=== PATIENT | female | born 1970 | race African-American/Black ===

== ENCOUNTER 2019-10-22 23:19 | Inpatient (IN) | payer MEDICARE, MEDICAID ==
[~2019-10-22] VITALS: Ht 175.3 cm; Wt 71.2 kg
[2019-10-22 23:30] VITALS: BP 154/86
[2019-10-23] VITALS (7 sets, daily range): BP systolic 103–135; BP diastolic 73–90
[2019-10-23] MEDS ORDERED: Haloperidol 5mg/ml Inj IM ONE (00:30)
[2019-10-23 00:44] LABS: EOSINOPHILS % (AUTO) 0.8 % (0.0-3.0); HEMATOCRIT 37.4 % (37.0-47.0); HEMOGLOBIN 12.2 G/DL (12.0-16.0); LYMPHOCYTES % (AUTO) 35.6 % (20.0-45.0); MEAN CORPUSCULAR VOLUME 81 FL (80-99); MONOCYTES % (AUTO) 6.8 % (1.0-10.0); NEUTROPHILS % (AUTO) 55.8 % (45.0-75.0); PLATELET COUNT 146 K/UL (150-450); RED BLOOD COUNT 4.62 M/UL (4.20-5.40); RED CELL DISTRIBUTION WIDTH 14.1 % (11.6-14.8); WHITE BLOOD COUNT 12.8 K/UL (4.8-10.8)
[2019-10-23 00:51] LABS: ANION GAP 14 mmol/L (5-15); BLOOD UREA NITROGEN 10 mg/dL (7-18); CALCIUM 9.7 MG/DL (8.5-10.1); CARBON DIOXIDE 24 MMOL/L (21-32); CHLORIDE 105 MMOL/L (98-107); CREATININE 0.8 MG/DL (0.55-1.30); POTASSIUM 3.7 MMOL/L (3.5-5.1); SODIUM 142 MMOL/L (136-145)
[2019-10-23 00:57] LABS: ALANINE AMINOTRANSFERASE 19 U/L (12-78); ALBUMIN 3.8 G/DL (3.4-5.0); ALKALINE PHOSPHATASE 40 U/L (46-116); ASPARTATE AMINO TRANSFERASE 16 U/L (15-37); BILIRUBIN,TOTAL 0.4 MG/DL (0.2-1.0)
[2019-10-23 01:16] LABS: BILIRUBIN, URINE NEGATIVE (NEGATIVE); GLUCOSE, URINE (UA) NEGATIVE (NEGATIVE); KETONES,URINE NEGATIVE (NEGATIVE); LEUKOCYTE ESTERASE ,URINE 2+ (NEGATIVE); NITRITE,URINE NEGATIVE (NEGATIVE); PH,URINE 5 (4.5-8.0); PROTEIN,URINE 1+ (NEGATIVE); UROBILINOGEN,URINE 1 MG/DL (0.0-1.0)
[2019-10-23 01:18] LABS: COLOR,URINE YELLOW
[2019-10-23 01:22] LABS: APPEARANCE,URINE SLIGHTLY CLOUDY
[2019-10-23] MEDS ORDERED: cefTRIAXone 1 GM in NS 55 ML IVPB ONE (01:45)
--- NOTE | 2019-10-23 02:01 | Emergency Room Report ---
History of Present Illness General Chief Complaint: Generalized Weakness Source: Medical Record, EMS Present Illness HPI Is a 48-year-old female with a history of schizophrenia. She [place]. She presents with chief complaint of altered mental status. For the last few days she is not taking her medication. Not eating or drinking. Very catatonic per EMS. Unable get any history because she is not verbalizing her complaints. At baseline she is conversive. Allergies: Coded Allergies: No Known Allergies (Unverified , 10/22/19) Patient History Past Medical History: see triage record, old chart reviewed, psych hx Past Surgical History: other Pertinent Family History: none Social History: Denies: smoking Now: No Immunizations: other Reviewed Nursing Documentation: PMH: Agreed; PSxH: Agreed Review of Systems Constitutional: Reports: weakness All Other Systems: limited - Secondary to her condition Physical Exam Vital Signs Date Time Temp Pulse Resp B/P (MAP) Pulse Ox O2 Delivery O2 Flow Rate FiO2 10/22/19 23:29 97.9 119 18 154/86 (108) 97 Room Air Vitals with tachycardia and high blood pressure Sp02 EP Interpretation: reviewed, normal General Appearance: no apparent distress, alert, cachetic, thin Head: normocephalic, atraumatic Eyes: bilateral eye PERRL, bilateral eye EOMI ENT: hearing grossly normal, normal pharynx Neck: full range of motion, supple, no meningismus Respiratory: chest non-tender, lungs clear, normal breath sounds Cardiovascular #1: regular rate, rhythm, no murmur Gastrointestinal: normal bowel sounds, non tender, no mass, no organomegaly, no bruit, non-distended Musculoskeletal: back normal, normal range of motion, gait/station normal Neurologic: grossly normal Psychiatric: other - Patient is catatonic. Not moving much. Medical Decision Making Diagnostic Impression: Primary Impression: Failure to thrive in adult Additional Impressions: UTI (urinary tract infection) Qualified Codes: N30.00 - Acute cystitis without hematuria Schizophrenic catatonia Dehydration ER Course Patient presents with failure to thrive and schizophrenic catatonia. May be secondary to nothing her medication or infection. She is dehydrated with tachycardia. I gave her IV fluids here and heart rate down to the 90s. She also received Haldol. She appear to be better. Will admit for IV fluids and further work-up. She does have a urinary tract infection and a dose of Rocephin given here. I contacted Dr. Kendall for admission,. Rhythm Strip Diag. Results EP Interpretation: yes Rate: 94 Rhythm: NSR, no PVC's, no ectopy Last Vital Signs Date Time Temp Pulse Resp B/P (MAP) Pulse Ox O2 Delivery O2 Flow Rate FiO2 10/22/19 23:29 97.9 119 18 154/86 (108) 97 Room Air Status: improved Disposition: ADMITTED INPATIENT Condition: Serious Referrals: Carl Kendall DO (PCP) Turner Tarn MD Oct 23, 2019 02:01
[2019-10-23] MEDS ORDERED: COLACE100 MG ORAL (02:50)
[2019-10-23] MEDS ORDERED: ENSURE ACTIVE296 ML PO (02:50)
[2019-10-23] MEDS ORDERED: ACIDOPHILUS1 EAC7 PO (02:50)
[2019-10-23] MEDS ORDERED: DIFLUCAN100 MG ORAL (02:50)
[2019-10-23] MEDS ORDERED: MEGESTROL ACETA40 MG PO (02:50)
[2019-10-23] MEDS ORDERED: CLOZARIL50 MG PO (02:50)
[2019-10-23] MEDS ORDERED: ACETAMINOPHEN325 M1 ORAL (03:37)
[2019-10-23] MEDS ORDERED: IBUPROFEN600 MG ORAL (03:39)
[2019-10-23] MEDS ORDERED: D5 1/2NS 1,000 ML IV SCH (06:15)
[2019-10-23] MEDS: Fluconazole 100mg tab ORAL SCH (08:21)
[2019-10-23] MEDS: Docusate 100mg cap ORAL SCH ×3 (08:21→17:00)
[2019-10-23] MEDS: Heparin 5000 units/ml inj SUBQ SCH ×2 (08:21→20:45)
[2019-10-23 08:22] LABS: BASOPHILS % (AUTO) 0.8 % (0.0-2.0); EOSINOPHILS % (AUTO) 0.6 % (0.0-3.0); HEMATOCRIT 32.9 % (37.0-47.0); HEMOGLOBIN 10.8 G/DL (12.0-16.0); MEAN CORPUSCULAR VOLUME 82 FL (80-99); MONOCYTES % (AUTO) 6.7 % (1.0-10.0); PLATELET COUNT 125 K/UL (150-450); RED BLOOD COUNT 4.03 M/UL (4.20-5.40); RED CELL DISTRIBUTION WIDTH 14.2 % (11.6-14.8)
[2019-10-23 08:31] LABS: ANION GAP 10 mmol/L (5-15); BLOOD UREA NITROGEN 6 mg/dL (7-18); CALCIUM 9.5 MG/DL (8.5-10.1); CARBON DIOXIDE 24 MMOL/L (21-32); CHLORIDE 113 MMOL/L (98-107); CREATININE 0.7 MG/DL (0.55-1.30); POTASSIUM 3.8 MMOL/L (3.5-5.1); SODIUM 147 MMOL/L (136-145)
--- NOTE | 2019-10-23 11:04 | Consultation ---
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 \ Allergies: Coded Allergies: No Known Allergies (Unverified , 10/22/19) Medication History Scheduled Clozapine (ClozariL), 50 MG PO BID, (Reported) Docusate Sodium* (Colace*), 100 MG ORAL BID, (Reported) Fluconazole* (Diflucan*), 100 MG ORAL DAILY, (Reported) Lactobacillus Acidophilus (Acidophilus), 1 EACH PO TID, (Reported) Megestrol Acetate (Megestrol Acetate), 400 MG PO BID, (Reported) Scheduled PRN Acetaminophen* (Acetaminophen 325MG Tablet*), 325 MG ORAL Q4H PRN for Mild Pain/ Temp > 100.5, (Reported) Ibuprofen* (Motrin*), 600 MG ORAL Q6H PRN for Severe Pain (Pain Scale 7-10), ( Reported) Miscellaneous Medications Lactose-Reduced Food (Ensure Active Clear), 296 ML PO, (Reported) Patient History Healthcare decision maker Resuscitation status Advanced Directive on File Patient History Narrative Pmhx: as above Shx: Denies: smoking Fhx: non contributory Review of Systems All Other Systems: negative except mentioned in HPI Physical Exam Physical Exam Narrative General Appearance: no apparent distress, alert, cachetic, thin Head: normocephalic, atraumatic Eyes: bilateral eye PERRL, bilateral eye EOMI ENT: hearing grossly normal, normal pharynx Neck: full range of motion, supple, no meningismus Respiratory: chest non-tender, lungs clear, normal breath sounds Cardiovascular #1: regular rate, rhythm, no murmur Gastrointestinal: normal bowel sounds, non tender, no mass, no organomegaly, no bruit, non-distended Musculoskeletal: back normal, normal range of motion, gait/station normal Neurologic: grossly normal Psychiatric: other - Patient is catatonic. Not moving much. Last 24 Hour Vital Signs Date Time Temp Pulse Resp B/P (MAP) Pulse Ox O2 Delivery O2 Flow Rate FiO2 10/23/19 08:00 98.3 62 17 130/73 (92) 100 10/23/19 07:50 Room Air 1/21/20 04:19 Room Air 10/23/19 04:00 98.3 88 17 130/75 (93) 100 10/23/19 02:50 97.9 85 15 124/90 100 Room Air 10/23/19 02:50 97.9 85 15 124/90 100 Room Air 10/23/19 02:15 97.9 88 13 123/84 100 Room Air 10/22/19 23:30 97.9 119 18 154/86 97 Room Air 10/22/19 23:30 119 18 Room Air 10/22/19 23:29 97.9 119 18 154/86 (108) 97 Room Air Intake and Output 10/22/19 10/23/19 19:00 07:00 Output Total 300 ml Balance -300 ml Output Urine Total 300 ml Laboratory Tests Test 10/23/19 00:25 10/23/19 01:00 10/23/19 08:00 White Blood Count 12.8 K/UL (4.8-10.8) H 13.0 K/UL (4.8-10.8) H Red Blood Count 4.62 M/UL (4.20-5.40) 4.03 M/UL (4.20-5.40) L Hemoglobin 12.2 G/DL (12.0-16.0) 10.8 G/DL (12.0-16.0) L Hematocrit 37.4 % (37.0-47.0) 32.9 % (37.0-47.0) L Mean Corpuscular Volume 81 FL (80-99) 82 FL (80-99) Mean Corpuscular Hemoglobin 26.5 PG (27.0-31.0) L 26.7 PG (27.0-31.0) L Mean Corpuscular Hemoglobin Concent 32.7 G/DL (32.0-36.0) 32.8 G/DL (32.0-36.0) Red Cell Distribution Width 14.1 % (11.6-14.8) 14.2 % (11.6-14.8) Platelet Count 146 K/UL (150-450) L 125 K/UL (150-450) L Mean Platelet Volume 11.9 FL (6.5-10.1) H 11.0 FL (6.5-10.1) H Neutrophils (%) (Auto) 55.8 % (45.0-75.0) 58.0 % (45.0-75.0) Lymphocytes (%) (Auto) 35.6 % (20.0-45.0) 34.0 % (20.0-45.0) Monocytes (%) (Auto) 6.8 % (1.0-10.0) 6.7 % (1.0-10.0) Eosinophils (%) (Auto) 0.8 % (0.0-3.0) 0.6 % (0.0-3.0) Basophils (%) (Auto) 1.0 % (0.0-2.0) 0.8 % (0.0-2.0) Sodium Level 142 MMOL/L (136-145) 147 MMOL/L (136-145) H Potassium Level 3.7 MMOL/L (3.5-5.1) 3.8 MMOL/L (3.5-5.1) Chloride Level 105 MMOL/L (98-107) 113 MMOL/L (98-107) H Carbon Dioxide Level 24 MMOL/L (21-32) 24 MMOL/L (21-32) Anion Gap 14 mmol/L (5-15) 10 mmol/L (5-15) Blood Urea Nitrogen 10 mg/dL (7-18) 6 mg/dL (7-18) L Creatinine 0.8 MG/DL (0.55-1.30) 0.7 MG/DL (0.55-1.30) Estimat Glomerular Filtration Rate > 60 mL/min (>60) > 60 mL/min (>60) Glucose Level 110 MG/DL (74-106) H 103 MG/DL (74-106) Calcium Level 9.7 MG/DL (8.5-10.1) 9.5 MG/DL (8.5-10.1) Total Bilirubin 0.4 MG/DL (0.2-1.0) Aspartate Amino Transf (AST/SGOT) 16 U/L (15-37) Alanine Aminotransferase (ALT/SGPT) 19 U/L (12-78) Alkaline Phosphatase 40 U/L (46-116) L Total Protein 7.7 G/DL (6.4-8.2) Albumin 3.8 G/DL (3.4-5.0) Globulin 3.9 g/dL Albumin/Globulin Ratio 1.0 (1.0-2.7) Urine Color Yellow Urine Appearance Slightly cloudy Urine pH 5 (4.5-8.0) Urine Specific [place] 1.015 (1.005-1.035) Urine Protein 1+ (NEGATIVE) H Urine Glucose (UA) Negative (NEGATIVE) Urine Ketones Negative (NEGATIVE) Urine Blood 1+ (NEGATIVE) H Urine Nitrite Negative (NEGATIVE) Urine Bilirubin Negative (NEGATIVE) Urine Urobilinogen 1 MG/DL (0.0-1.0) H Urine Leukocyte Esterase 2+ (NEGATIVE) H Urine RBC 0-2 /HPF (0 - 2) Urine WBC 30-40 /HPF (0 - 2) H Urine Squamous Epithelial Cells Moderate /LPF (NONE/OCC) H Urine Bacteria Moderate /HPF (NONE) H Microbiology Date/Time Source Procedure Growth Status 10/23/19 02:00 Rectum Received Height (Feet): 5 Height (Inches): 9.00 Weight (Pounds): 150 Medications Current Medications Medications (Trade) Dose Ordered Sig/Kirby Route PRN Reason Start Time Stop Time Status Last Admin Dose Admin Acetaminophen (Tylenol) 325 mg Q4H PRN ORAL Mild Pain/Temp > 100.5 10/23/19 06:15 11/22/19 06:14 Dextrose/Sodium Chloride 1,000 ml @ 60 mls/hr [id number] IV 10/23/19 06:15 11/22/19 06:14 10/23/19 06:35 Docusate Sodium (Colace) 100 mg BID ORAL 10/23/19 09:00 11/22/19 08:59 Fluconazole (Diflucan) 100 mg DAILY ORAL 10/23/19 09:00 10/30/19 08:59 Heparin Sodium (Porcine) (Heparin 5000 units/ml) 5,000 units EVERY 12 HOURS SUBQ 10/23/19 09:00 11/22/19 08:59 Ibuprofen (Advil) 600 mg Q6H PRN ORAL Severe Pain (Pain Scale 7-10) 10/23/19 06:15 11/22/19 06:14 Megestrol Acetate (Megace) 400 mg BID ORAL 10/23/19 09:00 10/28/19 08:59 Assessment/Plan Assessment/Plan: Abx: Ceftriaxone x1 10/23 Assessment: FTT Dehydration catatonic schizophrenia Afebrile Mild leukocytosis Pyuria, r/o UTI -u/a wbc 30-40, nit neg, leuk +2, sq cell mod; ucx p [facility] resident Plan: -Continue empiric Ceftriaxone pending ucx -f/u cx -Monitor CBC/CMP, temperatures -repeat u/a reflex -[facility] Thank you for this consultation. Will continue to follow along with you. Discussed with Ankita Torres M.D. Oct 23, 2019 11:04
--- NOTE | 2019-10-23 11:37 | GI Initial Consult Note ---
History of Present Illness General Date patient seen: Oct 23, 2019 Time patient seen: 11:32 Reason for Hospitalization: Generalized Weakness Referring physician: RILEY ELDRIDGE Reason for Consultation: FTT Present Illness HPI Is a 48-year-old female with a history of schizophrenia. [place]. She presents with chief complaint of altered mental status. For the last few days she is not taking her medication. Not eating or drinking. Very catatonic per EMS. Unable get any history because she is not verbalizing her complaints. At baseline she is conversive. GI consulted for failure to thrive. ROS limited, patient nonverbal at the time of evaluation. Patient was seen, awake alert no apparent distress with no active signs or symptoms of any nausea or vomiting. The patient's abdomen was soft, nontender, nondistended with no rebounding or guarding noted. According to report, the patient has had a decrease in p.o. intake. No known history of endoscopic or colonoscopy. Labs reviewed, WBC 13.0, hemoglobin 10.8, sodium 147. Home Meds Reported Medications Ibuprofen* (MOTRIN*) 600 Mg Tablet, 600 MG ORAL Q6H PRN for Severe Pain (Pain Scale 7-10), #20 TAB 10/23/19 Acetaminophen* (ACETAMINOPHEN 325MG TABLET*) 325 Mg Tablet, 325 MG ORAL Q4H PRN for Mild Pain/Temp > 100.5, TAB 10/23/19 Fluconazole* (DIFLUCAN*) 100 Mg Tablet, 100 MG ORAL DAILY for , TAB 10/23/19 Lactose-Reduced Food (Ensure Active Clear) 296 Ml Liquid, 296 ML PO for , ML 10/23/19 Clozapine (ClozariL) 50 Mg Tablet, 50 MG PO BID for , TAB 10/23/19 Megestrol Acetate (MEGESTROL ACETATE) 40 Mg Tablet, 400 MG PO BID for , TAB 10/23/19 Docusate Sodium* (COLACE*) 100 Mg Capsule, 100 MG ORAL BID for , CAP 10/23/19 Lactobacillus Acidophilus (Acidophilus) 1 Each Tablet, 1 EACH PO TID for , TAB 10/23/19 Med list reviewed/reconciled: Yes Allergies: Coded Allergies: No Known Allergies (Unverified , 10/22/19) Patient History Limited by: medical condition History Provided By: Medical Record PM Narrative Past Medical History: see triage record, old chart reviewed, psych hx Past Surgical History: other Pertinent Family History: none Social History: Denies: smoking Now: No Immunizations: other Reviewed Nursing Documentation: PMH: Agreed; PSxH: Agreed Social History: Denies: smoking, alcohol use, drug use, other Review of Systems All Other Systems: limited Physical Exam Vital Signs Date Time Temp Pulse Resp B/P (MAP) Pulse Ox O2 Delivery O2 Flow Rate FiO2 10/22/19 23:29 97.9 119 18 154/86 (108) 97 Room Air Sp02 EP Interpretation: reviewed Labs Laboratory Tests Test 10/23/19 00:25 10/23/19 01:00 10/23/19 08:00 White Blood Count 12.8 K/UL (4.8-10.8) H 13.0 K/UL (4.8-10.8) H Red Blood Count 4.62 M/UL (4.20-5.40) 4.03 M/UL (4.20-5.40) L Hemoglobin 12.2 G/DL (12.0-16.0) 10.8 G/DL (12.0-16.0) L Hematocrit 37.4 % (37.0-47.0) 32.9 % (37.0-47.0) L Mean Corpuscular Volume 81 FL (80-99) 82 FL (80-99) Mean Corpuscular Hemoglobin 26.5 PG (27.0-31.0) L 26.7 PG (27.0-31.0) L Mean Corpuscular Hemoglobin Concent 32.7 G/DL (32.0-36.0) 32.8 G/DL (32.0-36.0) Red Cell Distribution Width 14.1 % (11.6-14.8) 14.2 % (11.6-14.8) Platelet Count 146 K/UL (150-450) L 125 K/UL (150-450) L Mean Platelet Volume 11.9 FL (6.5-10.1) H 11.0 FL (6.5-10.1) H Neutrophils (%) (Auto) 55.8 % (45.0-75.0) 58.0 % (45.0-75.0) Lymphocytes (%) (Auto) 35.6 % (20.0-45.0) 34.0 % (20.0-45.0) Monocytes (%) (Auto) 6.8 % (1.0-10.0) 6.7 % (1.0-10.0) Eosinophils (%) (Auto) 0.8 % (0.0-3.0) 0.6 % (0.0-3.0) Basophils (%) (Auto) 1.0 % (0.0-2.0) 0.8 % (0.0-2.0) Sodium Level 142 MMOL/L (136-145) 147 MMOL/L (136-145) H Potassium Level 3.7 MMOL/L (3.5-5.1) 3.8 MMOL/L (3.5-5.1) Chloride Level 105 MMOL/L (98-107) 113 MMOL/L (98-107) H Carbon Dioxide Level 24 MMOL/L (21-32) 24 MMOL/L (21-32) Anion Gap 14 mmol/L (5-15) 10 mmol/L (5-15) Blood Urea Nitrogen 10 mg/dL (7-18) 6 mg/dL (7-18) L Creatinine 0.8 MG/DL (0.55-1.30) 0.7 MG/DL (0.55-1.30) Estimat Glomerular Filtration Rate > 60 mL/min (>60) > 60 mL/min (>60) Glucose Level 110 MG/DL (74-106) H 103 MG/DL (74-106) Calcium Level 9.7 MG/DL (8.5-10.1) 9.5 MG/DL (8.5-10.1) Total Bilirubin 0.4 MG/DL (0.2-1.0) Aspartate Amino Transf (AST/SGOT) 16 U/L (15-37) Alanine Aminotransferase (ALT/SGPT) 19 U/L (12-78) Alkaline Phosphatase 40 U/L (46-116) L Total Protein 7.7 G/DL (6.4-8.2) Albumin 3.8 G/DL (3.4-5.0) Globulin 3.9 g/dL Albumin/Globulin Ratio 1.0 (1.0-2.7) Urine Color Yellow Urine Appearance Slightly cloudy Urine pH 5 (4.5-8.0) Urine Specific [place] 1.015 (1.005-1.035) Urine Protein 1+ (NEGATIVE) H Urine Glucose (UA) Negative (NEGATIVE) Urine Ketones Negative (NEGATIVE) Urine Blood 1+ (NEGATIVE) H Urine Nitrite Negative (NEGATIVE) Urine Bilirubin Negative (NEGATIVE) Urine Urobilinogen 1 MG/DL (0.0-1.0) H Urine Leukocyte Esterase 2+ (NEGATIVE) H Urine RBC 0-2 /HPF (0 - 2) Urine WBC 30-40 /HPF (0 - 2) H Urine Squamous Epithelial Cells Moderate /LPF (NONE/OCC) H Urine Bacteria Moderate /HPF (NONE) H General Appearance: no apparent distress, alert Head: normocephalic EENT: normal ENT inspection Neck: supple Respiratory: no respiratory distress Cardiovascular: normal rate Gastrointestinal: soft Current Medications Current Medications Medications (Trade) Dose Ordered Sig/Kirby Route PRN Reason Start Time Stop Time Status Last Admin Dose Admin Acetaminophen (Tylenol) 325 mg Q4H PRN ORAL Mild Pain/Temp > 100.5 10/23/19 06:15 11/22/19 06:14 Dextrose/Sodium Chloride 1,000 ml @ 60 mls/hr [id number] IV 10/23/19 06:15 11/22/19 06:14 10/23/19 06:35 Docusate Sodium (Colace) 100 mg BID ORAL 10/23/19 09:00 11/22/19 08:59 Fluconazole (Diflucan) 100 mg DAILY ORAL 10/23/19 09:00 10/30/19 08:59 Heparin Sodium (Porcine) (Heparin 5000 units/ml) 5,000 units EVERY 12 HOURS SUBQ 10/23/19 09:00 11/22/19 08:59 Ibuprofen (Advil) 600 mg Q6H PRN ORAL Severe Pain (Pain Scale 7-10) 10/23/19 06:15 11/22/19 06:14 Megestrol Acetate (Megace) 400 mg BID ORAL 10/23/19 09:00 10/28/19 08:59 GI: Plan Problems: (1) Dehydration (2) Failure to thrive in adult Plan Patient most likely will need PEG will obtain speech therapy evaluation to rule out any dysphasia Calorie count after evaluation to see if nutritional needs are met IV and p.o. hydration Anemia work-up Occult blood stool to rule out any GI bleed PPI We will follow on a daily basis with any additional recommendations Discussed with Dr. Vang. Thank you for this patient referral, we will follow. The patient was seen and examined at bedside and all new and available data was reviewed in the patients chart. I agree with the above findings, impression and plan. (Patient seen earlier today. Signature stamp does not reflect patient encounter time.). - MD Chelsea Ingram AnhCarmen COSBY Oct 23, 2019 11:37
--- NOTE | 2019-10-23 13:31 | Consultation ---
History of Present Illness General Date patient seen: Oct 23, 2019 Reason for Hospitalization: Generalized Weakness Present Illness HPI 48-year-old female with a history of schizophrenia who is a [facility] that presents with chief complaint of altered mental status. For the last few days she is not taking her medication. Not eating or drinking. Very catatonic per EMS. Unable get any history because she is not verbalizing her complaints. At baseline she is conversive pre reports. Surgery consulted for decubitus skin ulcers and failure to thrive. ROS limited, patient nonverbal at the time of evaluation. Patient was seen, awake alert no apparent distress with no active signs or symptoms of any nausea or vomiting. The patient's abdomen was soft, nontender, nondistended with no rebounding or guarding noted. According to report, the patient has had a decrease in p.o. intake. Allergies: Coded Allergies: No Known Allergies (Unverified , 10/22/19) Medication History Scheduled Clozapine (ClozariL), 50 MG PO BID, (Reported) Docusate Sodium* (Colace*), 100 MG ORAL BID, (Reported) Fluconazole* (Diflucan*), 100 MG ORAL DAILY, (Reported) Lactobacillus Acidophilus (Acidophilus), 1 EACH PO TID, (Reported) Megestrol Acetate (Megestrol Acetate), 400 MG PO BID, (Reported) Scheduled PRN Acetaminophen* (Acetaminophen 325MG Tablet*), 325 MG ORAL Q4H PRN for Mild Pain/ Temp > 100.5, (Reported) Ibuprofen* (Motrin*), 600 MG ORAL Q6H PRN for Severe Pain (Pain Scale 7-10), ( Reported) Miscellaneous Medications Lactose-Reduced Food (Ensure Active Clear), 296 ML PO, (Reported) Patient History Limited by: medical condition History Provided By: Medical Record, PMD Healthcare decision maker Resuscitation status Advanced Directive on File Past Medical/Surgical History Past Medical/Surgical History: (1) Decubitus skin ulcer (2) UTI (urinary tract infection) (3) Schizophrenic catatonia (4) Dehydration (5) Failure to thrive in adult Review of Systems Review of Symptoms unable to obtain given current medical condition and non verbal Physical Exam Physical Exam General appearance: alert, cooperative, no distress, appears stated age Head: Normocephalic, without obvious abnormality, atraumatic Eyes: conjunctivae/corneas clear. PERRL, EOM's intact. Fundi benign Throat: Lips, mucosa, and tongue normal. Teeth and gums normal Neck: supple, symmetrical, trachea midline, no adenopathy, thyroid: not enlarged, symmetric, no tenderness/mass/nodules, no carotid bruit and no JVD Lungs: clear to auscultation bilaterally Heart: regular rate and rhythm, S1, S2 normal, no murmur, click, rub or gallop Abdomen: soft, non-tender. Bowel sounds normal. No masses, no organomegaly Extremities: extremities normal, atraumatic, no cyanosis or edema Pulses: 2+ and symmetric Skin: Skin color, texture, turgor normal. No rashes or lesions Neurologic: Grossly normal Last 24 Hour Vital Signs Date Time Temp Pulse Resp B/P (MAP) Pulse Ox O2 Delivery O2 Flow Rate FiO2 10/23/19 08:00 98.3 62 17 130/73 (92) 100 10/23/19 07:50 Room Air 10/23/19 04:19 Room Air 10/23/19 04:00 98.3 88 17 130/75 (93) 100 10/23/19 02:50 97.9 85 15 124/90 100 Room Air 10/23/19 02:50 97.9 85 15 124/90 100 Room Air 10/23/19 02:15 97.9 88 13 123/84 100 Room Air 10/22/19 23:30 97.9 119 18 154/86 97 Room Air 10/22/19 23:30 119 18 Room Air 10/22/19 23:29 97.9 119 18 154/86 (108) 97 Room Air Intake and Output 10/22/19 10/23/19 19:00 07:00 Output Total 300 ml Balance -300 ml Output Urine Total 300 ml Laboratory Tests Test 10/23/19 00:25 10/23/19 01:00 10/23/19 08:00 White Blood Count 12.8 K/UL (4.8-10.8) H 13.0 K/UL (4.8-10.8) H Red Blood Count 4.62 M/UL (4.20-5.40) 4.03 M/UL (4.20-5.40) L Hemoglobin 12.2 G/DL (12.0-16.0) 10.8 G/DL (12.0-16.0) L Hematocrit 37.4 % (37.0-47.0) 32.9 % (37.0-47.0) L Mean Corpuscular Volume 81 FL (80-99) 82 FL (80-99) Mean Corpuscular Hemoglobin 26.5 PG (27.0-31.0) L 26.7 PG (27.0-31.0) L Mean Corpuscular Hemoglobin Concent 32.7 G/DL (32.0-36.0) 32.8 G/DL (32.0-36.0) Red Cell Distribution Width 14.1 % (11.6-14.8) 14.2 % (11.6-14.8) Platelet Count 146 K/UL (150-450) L 125 K/UL (150-450) L Mean Platelet Volume 11.9 FL (6.5-10.1) H 11.0 FL (6.5-10.1) H Neutrophils (%) (Auto) 55.8 % (45.0-75.0) 58.0 % (45.0-75.0) Lymphocytes (%) (Auto) 35.6 % (20.0-45.0) 34.0 % (20.0-45.0) Monocytes (%) (Auto) 6.8 % (1.0-10.0) 6.7 % (1.0-10.0) Eosinophils (%) (Auto) 0.8 % (0.0-3.0) 0.6 % (0.0-3.0) Basophils (%) (Auto) 1.0 % (0.0-2.0) 0.8 % (0.0-2.0) Sodium Level 142 MMOL/L (136-145) 147 MMOL/L (136-145) H Potassium Level 3.7 MMOL/L (3.5-5.1) 3.8 MMOL/L (3.5-5.1) Chloride Level 105 MMOL/L (98-107) 113 MMOL/L (98-107) H Carbon Dioxide Level 24 MMOL/L (21-32) 24 MMOL/L (21-32) Anion Gap 14 mmol/L (5-15) 10 mmol/L (5-15) Blood Urea Nitrogen 10 mg/dL (7-18) 6 mg/dL (7-18) L Creatinine 0.8 MG/DL (0.55-1.30) 0.7 MG/DL (0.55-1.30) Estimat Glomerular Filtration Rate > 60 mL/min (>60) > 60 mL/min (>60) Glucose Level 110 MG/DL (74-106) H 103 MG/DL (74-106) Calcium Level 9.7 MG/DL (8.5-10.1) 9.5 MG/DL (8.5-10.1) Total Bilirubin 0.4 MG/DL (0.2-1.0) Aspartate Amino Transf (AST/SGOT) 16 U/L (15-37) Alanine Aminotransferase (ALT/SGPT) 19 U/L (12-78) Alkaline Phosphatase 40 U/L (46-116) L Total Protein 7.7 G/DL (6.4-8.2) Albumin 3.8 G/DL (3.4-5.0) Globulin 3.9 g/dL Albumin/Globulin Ratio 1.0 (1.0-2.7) Urine Color Yellow Urine Appearance Slightly cloudy Urine pH 5 (4.5-8.0) Urine Specific [place] 1.015 (1.005-1.035) Urine Protein 1+ (NEGATIVE) H Urine Glucose (UA) Negative (NEGATIVE) Urine Ketones Negative (NEGATIVE) Urine Blood 1+ (NEGATIVE) H Urine Nitrite Negative (NEGATIVE) Urine Bilirubin Negative (NEGATIVE) Urine Urobilinogen 1 MG/DL (0.0-1.0) H Urine Leukocyte Esterase 2+ (NEGATIVE) H Urine RBC 0-2 /HPF (0 - 2) Urine WBC 30-40 /HPF (0 - 2) H Urine Squamous Epithelial Cells Moderate /LPF (NONE/OCC) H Urine Bacteria Moderate /HPF (NONE) H Microbiology Date/Time Source Procedure Growth Status 10/23/19 02:00 Rectum Received Height (Feet): 5 Height (Inches): 9.00 Weight (Pounds): 150 Medications Current Medications Medications (Trade) Dose Ordered Sig/Kirby Route PRN Reason Start Time Stop Time Status Last Admin Dose Admin Acetaminophen (Tylenol) 325 mg Q4H PRN ORAL Mild Pain/Temp > 100.5 10/23/19 06:15 11/22/19 06:14 Ceftriaxone Sodium 1 gm/ Dextrose 55 ml @ 110 mls/hr Q24H IVPB 10/24/19 02:00 10/31/19 01:59 Dextrose/Sodium Chloride 1,000 ml @ 60 mls/hr [id number] IV 10/23/19 06:15 11/22/19 06:14 10/23/19 06:35 Docusate Sodium (Colace) 100 mg BID ORAL 10/23/19 09:00 11/22/19 08:59 Fluconazole (Diflucan) 100 mg DAILY ORAL 10/23/19 09:00 10/30/19 08:59 Heparin Sodium (Porcine) (Heparin 5000 units/ml) 5,000 units EVERY 12 HOURS SUBQ 10/23/19 09:00 11/22/19 08:59 Ibuprofen (Advil) 600 mg Q6H PRN ORAL Severe Pain (Pain Scale 7-10) 10/23/19 06:15 11/22/19 06:14 Megestrol Acetate (Megace) 400 mg BID ORAL 10/23/19 09:00 10/28/19 08:59 Assessment/Plan Problem List: (1) Failure to thrive in adult ICD Codes: R62.7 - Adult failure to thrive SNOMED: 040897663 (2) Decubitus skin ulcer Assessment & Plan: Pt presented on admission with DTPI R and L heels. R heel noted to have an area that is maroon fluctuant with surrounding non- blanching erythema.(L)2.4cm x (W)1.6cm. L heel noted to have an area that is purple with red margins ,surrounding non- blanching erythema which is boggy.(L)3.3cm x (W)1.5cm. Skin is dry Sacrum/buttocks without erythema or evidence of skin breakdown noted. No other skin concerns noted . PT identified as high risks for skin breakdown secondary,immobility,rigidity, Incontinence,Dx.of failure to thrive,and presence of pressure injuries. Wound prevention protocols initiated.Moisture Barrier paste applied to Sacrum and covered with Optifoam drsg.Pt positioned on side with pillow.HOB at 30 degrees. Cavilon Skin Barrier applied to both heels and each heel covered with Optifoam drsg. Heels floated off mattress with pillow. Pt placed on an APM/CELIA mattress overlay. Tx.plan: Apply Moisture Barrier Paste to Sacrum.Cover with Optifoam drsg. Change every 3 days and prn. Reposition at least every 2hours or as tolerated. Apply Cavilon Skin Barrier to both heels.Cover each heel with Optifoam drsg. Change every 7 days and prn. Off-load heels with pillow. APM/CELIA Mattress overlay. ICD Codes: L89.90 - Pressure ulcer of unspecified site, unspecified stage SNOMED: 768995045 Rodney Vaca Oct 23, 2019 13:31
--- NOTE | 2019-10-23 15:30 | History and Physical Report ---
DATE OF ADMISSION: 10/23/2019 DATE AND TIME SEEN: 10/23/2019, approximate time is 1 p.m. CONSULTANTS: 1. Joey Vang M.D. 2. Natalie Martin M.D. 3. Shola Hall M.D. 4. Derek Oh M.D. 5. Rodney Vaca M.D. CHIEF COMPLAINT: weakness, catatonia, UTI, heel ulcer. BRIEF HISTORY: This is a 48-year-old female from [facility], presented with above-mentioned diagnosis, currently lethargic. Eyes open, but not responding to questions. REVIEW OF SYSTEMS: Unavailable. PAST MEDICAL HISTORY: Schizophrenia, catatonia, dehydration. PAST SURGICAL HISTORY: Unknown. ALLERGIES: Denies. SOCIAL HISTORY: Unable to obtain secondary to the patient's condition. PHYSICAL EXAMINATION: GENERAL: Eyes open, but lethargic in bed, not following directions. VITAL SIGNS: Temperature 98 degrees, pulse 62, respirations 17, blood pressure 130/73. CARDIOVASCULAR: No murmurs. LUNGS: Distant and clear. ABDOMEN: Bowel sound positive. Nontender. Nondistended. EXTREMITIES: No cyanosis, clubbing, or edema. NEUROLOGIC: The patient's eyes open, but flaccid in bed. LABORATORY AND DIAGNOSTIC DATA: Labs at this time show white count 13, hemoglobin and hematocrit 10/32, platelets 125,000. BMP shows sodium 147, chloride 113. Urinalysis show 2+ leukocyte esterase. MEDICATIONS: Include ceftriaxone, heparin, docusate sodium, fluconazole, Megace, dextrose, Tylenol, ibuprofen, IV fluids. ASSESSMENT: 1. . 2. Catatonia. 3. Schizophrenia. 4. UTI. 5. Anemia. 6. Heel ulcers. PLAN: 1. PT, dietary evaluation. 2. Swallow evaluation. 3. Check labs in the a.m. 4. Resume home medications. 5. Antibiotics per Infectious Disease, Wound Care, 6. We will add Nephrology, Hematology consult. 7. Continue to follow this patient. Carl Kendall D.O. DR: TRAVIS JOB#: [id number] CC:
[2019-10-23 16:46] LABS: APPEARANCE,URINE CLEAR; BILIRUBIN, URINE NEGATIVE (NEGATIVE); COLOR,URINE PALE YELLOW; GLUCOSE, URINE (UA) NEGATIVE (NEGATIVE); KETONES,URINE NEGATIVE (NEGATIVE); LEUKOCYTE ESTERASE ,URINE 1+ (NEGATIVE); NITRITE,URINE NEGATIVE (NEGATIVE); PH,URINE 8 (4.5-8.0); PROTEIN,URINE NEGATIVE (NEGATIVE); UROBILINOGEN,URINE NORMAL MG/DL (0.0-1.0)
[2019-10-24] VITALS: BP 120/87
[2019-10-24] MEDS: cefTRIAXone 1 GM in D5W 55 ML IVPB SCH (01:58)
[2019-10-24 04:00] VITALS: BP 128/85
[2019-10-24 07:46] LABS: PHOSPHORUS 3.9 MG/DL (2.5-4.9)
[2019-10-24 08:00] VITALS: BP 113/75
[2019-10-24 08:21] LABS: % IRON SATURATION 14 % (15-50); IRON 31 ug/dL (50-175); TOTAL IRON BINDING CAPACITY 219 ug/dL (250-450)
[2019-10-24] MEDS: Docusate 100mg cap ORAL SCH ×2 (08:28→17:14)
[2019-10-24] MEDS: Fluconazole 100mg tab ORAL SCH (08:29)
[2019-10-24] MEDS: Heparin 5000 units/ml inj SUBQ SCH ×2 (08:29→21:00)
--- NOTE | 2019-10-24 09:19 | General Progress Note ---
Assessment/Plan Problem List: (1) Dehydration ICD Codes: E86.0 - Dehydration SNOMED: 44742151 (2) Failure to thrive in adult ICD Codes: R62.7 - Adult failure to thrive SNOMED: 918533692 (3) Decubitus skin ulcer ICD Codes: L89.90 - Pressure ulcer of unspecified site, unspecified stage SNOMED: 691313182 (4) UTI (urinary tract infection) ICD Codes: N39.0 - Urinary tract infection, site not specified SNOMED: 65670091 Qualifiers: Qualified Codes: N30.00 - Acute cystitis without hematuria (5) Schizophrenic catatonia ICD Codes: F20.2 - Catatonic schizophrenia SNOMED: 214431123 Status: unchanged Assessment/Plan: pt diet abx wound care psyc f/u cbc bmp am Subjective Constitutional: Reports: weakness Allergies: Coded Allergies: No Known Allergies (Unverified , 10/22/19) All Systems: reviewed and negative except above Subjective sleepy calm in bed Objective Last 24 Hour Vital Signs Date Time Temp Pulse Resp B/P (MAP) Pulse Ox O2 Delivery O2 Flow Rate FiO2 10/24/19 08:58 Room Air 10/24/19 08:00 97.9 72 17 113/75 (88) 98 10/24/19 04:00 98.2 100 20 128/85 (99) 98 10/24/19 00:00 98.2 100 20 120/87 (98) 98 10/23/19 21:00 Room Air 10/23/19 20:00 98.2 97 20 135/88 (104) 96 10/23/19 16:00 97.9 87 17 103/76 (85) 100 10/23/19 12:00 97.9 88 17 124/83 (97) 100 Intake and Output 10/23/19 10/24/19 19:00 07:00 Intake Total 50 ml 550 ml Output Total 800 ml Balance -750 ml 550 ml Intake IV Total 50 ml 550 ml Output Urine Total 800 ml Laboratory Tests 10/23/19 15:45: Urine Color Pale yellow, Urine Appearance Clear, Urine pH 8, Urine Specific [place] 1.010, Urine Protein Negative, Urine Glucose (UA) Negative, Urine Ketones Negative, Urine Blood 5+H, Urine Nitrite Negative, Urine Bilirubin Negative, Urine Urobilinogen Normal, Urine Leukocyte Esterase 1+H, Urine RBC 30- 40H, Urine WBC 2-4, Urine Squamous Epithelial Cells Occasional, Urine Bacteria Few 10/24/19 06:24: White Blood Count [Pending], Red Blood Count [Pending], Hemoglobin [Pending], Hematocrit [Pending], Mean Corpuscular Volume [Pending], Mean Corpuscular Hemoglobin [Pending], Mean Corpuscular Hemoglobin Concent [Pending], Red Cell Distribution Width [Pending], Platelet Count [Pending], Mean Platelet Volume [ Pending], Neutrophils (%) (Auto) [Pending], Lymphocytes (%) (Auto) [Pending], Monocytes (%) (Auto) [Pending], Eosinophils (%) (Auto) [Pending], Basophils (%) (Auto) [Pending], Reticulocyte Count [Pending], Prothrombin Time 10.7, Prothromb Time International Ratio 1.0, Activated Partial Thromboplast Time 28, Sodium Level [Pending], Potassium Level [Pending], Chloride Level [Pending], Carbon Dioxide Level [Pending], Blood Urea Nitrogen [Pending], Creatinine [ Pending], Estimat Glomerular Filtration Rate [Pending], Glucose Level [Pending] , Hemoglobin A1c [Pending], Uric Acid 5.0, Calcium Level [Pending], Phosphorus Level 3.9, Magnesium Level 1.8, Iron Level 31L, Total Iron Binding Capacity 219L , Percent Iron Saturation 14L, Unsaturated Iron Binding 188, Ferritin [Pending] , Total Bilirubin [Pending], Gamma Glutamyl Transpeptidase 21, Aspartate Amino Transf (AST/SGOT) [Pending], Alanine Aminotransferase (ALT/SGPT) [Pending], Alkaline Phosphatase [Pending], C-Reactive Protein, Quantitative 1.2H, Pro-B- Type Natriuretic Peptide [Pending], Total Protein [Pending], Albumin [Pending], Globulin [Pending], Vitamin B12 Level 537, Folate [Pending], Thyroid Stimulating Hormone (TSH) [Pending], Free Thyroxine [Pending] Height (Feet): 5 Height (Inches): 9.00 Weight (Pounds): 151 General Appearance: lethargic EENT: normal ENT inspection Neck: normal alignment Cardiovascular: normal peripheral pulses, normal rate, regular rhythm Respiratory/Chest: chest wall non-tender, lungs clear, normal breath sounds Abdomen: normal bowel sounds, non tender, soft Extremities: normal inspection Edema: no edema noted Arm (L), no edema noted Arm (R), no edema noted Leg (L), no edema noted Leg (R), no edema noted Pedal (L), no edema noted Pedal (R), no edema noted Generalized Neurologic: motor weakness Skin: normal pigmentation, warm/dry Carl Kendall Oct 24, 2019 09:19
--- NOTE | 2019-10-24 11:28 | Infectious Diseases Prog Note ---
Assessment/Plan Assessment/Plan Abx: Ceftriaxone x1 10/23 Assessment: FTT Dehydration catatonic schizophrenia Afebrile Mild leukocytosis Pyuria, r/o UTI -u/a wbc 30-40, nit neg, leuk +2, sq cell mod; ucx NTD -repaet u/a wbc 2-4, nit neg, leuk +1, sq cell occasional [place] resident HIV sc neg Plan: -Continue empiric Ceftriaxone #2/3 pending ucx -f/u cx -Monitor CBC/CMP, temperatures -[facility] fadia Thank you for this consultation. Will continue to follow along with you. Discussed with RN Subjective Allergies: Coded Allergies: No Known Allergies (Unverified , 10/22/19) Subjective afebrile CBC pending Objective Vital Signs Last 24 Hour Vital Signs Date Time Temp Pulse Resp B/P (MAP) Pulse Ox O2 Delivery O2 Flow Rate FiO2 10/24/19 08:58 Room Air 10/24/19 08:00 97.9 72 17 113/75 (88) 98 10/24/19 04:00 98.2 100 20 128/85 (99) 98 10/24/19 00:00 98.2 100 20 120/87 (98) 98 10/23/19 21:00 Room Air 10/23/19 20:00 98.2 97 20 135/88 (104) 96 10/23/19 16:00 97.9 87 17 103/76 (85) 100 10/23/19 12:00 97.9 88 17 124/83 (97) 100 Height (Feet): 5 Height (Inches): 9.00 Weight (Pounds): 151 Objective General Appearance: no apparent distress, alert, cachetic, thin Head: normocephalic, atraumatic Eyes: bilateral eye PERRL, bilateral eye EOMI ENT: hearing grossly normal, normal pharynx Neck: full range of motion, supple, no meningismus Respiratory: chest non-tender, lungs clear, normal breath sounds Cardiovascular #1: regular rate, rhythm, no murmur Gastrointestinal: normal bowel sounds, non tender, no mass, no organomegaly, no bruit, non-distended Musculoskeletal: back normal, normal range of motion, gait/station normal Neurologic: grossly normal Psychiatric: other - Patient is catatonic. Not moving much. Microbiology Date/Time Source Procedure Growth Status 10/23/19 01:00 Urine,Clean Catch Urine Culture - Preliminary NO GROWTH AFTER 24 HOURS Resulted 10/23/19 02:00 Rectum Received Laboratory Tests Test 10/23/19 15:45 10/24/19 06:24 Urine Color Pale yellow Urine Appearance Clear Urine pH 8 (4.5-8.0) Urine Specific [place] 1.010 (1.005-1.035) Urine Protein Negative (NEGATIVE) Urine Glucose (UA) Negative (NEGATIVE) Urine Ketones Negative (NEGATIVE) Urine Blood 5+ (NEGATIVE) H Urine Nitrite Negative (NEGATIVE) Urine Bilirubin Negative (NEGATIVE) Urine Urobilinogen Normal MG/DL (0.0-1.0) Urine Leukocyte Esterase 1+ (NEGATIVE) H Urine RBC 30-40 /HPF (0 - 2) H Urine WBC 2-4 /HPF (0 - 2) Urine Squamous Epithelial Cells Occasional /LPF Urine Bacteria Few /HPF (NONE) White Blood Count Pending Red Blood Count Pending Hemoglobin Pending Hematocrit Pending Mean Corpuscular Volume Pending Mean Corpuscular Hemoglobin Pending Mean Corpuscular Hemoglobin Concent Pending Red Cell Distribution Width Pending Platelet Count Pending Mean Platelet Volume Pending Neutrophils (%) (Auto) Pending Lymphocytes (%) (Auto) Pending Monocytes (%) (Auto) Pending Eosinophils (%) (Auto) Pending Basophils (%) (Auto) Pending Reticulocyte Count 0.7 % (0.5-2.0) Prothrombin Time 10.7 SEC (9.30-11.50) Prothromb Time International Ratio 1.0 (0.9-1.1) Activated Partial Thromboplast Time 28 SEC (23-33) Sodium Level Pending Potassium Level Pending Chloride Level Pending Carbon Dioxide Level Pending Blood Urea Nitrogen Pending Creatinine Pending Estimat Glomerular Filtration Rate Pending Glucose Level Pending Hemoglobin A1c Pending Uric Acid 5.0 MG/DL (2.6-7.2) Calcium Level Pending Phosphorus Level 3.9 MG/DL (2.5-4.9) Magnesium Level 1.8 MG/DL (1.8-2.4) Iron Level 31 ug/dL (50-175) L Total Iron Binding Capacity 219 ug/dL (250-450) L Percent Iron Saturation 14 % (15-50) L Unsaturated Iron Binding 188 ug/dL (112-346) Ferritin Pending Total Bilirubin Pending Gamma Glutamyl Transpeptidase 21 U/L (5-85) Aspartate Amino Transf (AST/SGOT) Pending Alanine Aminotransferase (ALT/SGPT) Pending Alkaline Phosphatase Pending C-Reactive Protein, Quantitative 1.2 mg/dL (0.00-0.90) H Pro-B-Type Natriuretic Peptide Pending Total Protein Pending Albumin Pending Globulin Pending Vitamin B12 Level 537 PG/ML (193-986) Folate Pending Thyroid Stimulating Hormone (TSH) Pending Free Thyroxine Pending Current Medications Medications (Trade) Dose Ordered Sig/Kirby Route PRN Reason Start Time Stop Time Status Last Admin Dose Admin Acetaminophen (Tylenol) 325 mg Q4H PRN ORAL Mild Pain/Temp > 100.5 10/23/19 06:15 11/22/19 06:14 Ceftriaxone Sodium 1 gm/ Dextrose 55 ml @ 110 mls/hr Q24H IVPB 10/24/19 02:00 10/31/19 01:59 10/24/19 01:58 Dextrose 1,000 ml @ 50 mls/hr Q20H IV 10/23/19 15:30 11/22/19 15:29 10/23/19 15:38 Docusate Sodium (Colace) 100 mg BID ORAL 10/23/19 09:00 11/22/19 08:59 Fluconazole (Diflucan) 100 mg DAILY ORAL 10/23/19 09:00 10/30/19 08:59 Heparin Sodium (Porcine) (Heparin 5000 units/ml) 5,000 units EVERY 12 HOURS SUBQ 10/23/19 09:00 11/22/19 08:59 Megestrol Acetate (Megace) 400 mg BID ORAL 10/23/19 09:00 10/28/19 08:59 Pantoprazole (Protonix) 40 mg EVERY 12 HOURS ORAL 10/23/19 21:00 11/22/19 20:59 Ankita Jama M.D. Oct 24, 2019 11:28
[2019-10-24 12:00] VITALS: BP 131/77
--- NOTE | 2019-10-24 12:18 | GI Progress Note ---
Assessment/Plan Problems: (1) Failure to thrive in adult ICD Codes: R62.7 - Adult failure to thrive SNOMED: 123893813 (2) Dehydration ICD Codes: E86.0 - Dehydration SNOMED: 04386973 (3) Schizophrenic catatonia ICD Codes: F20.2 - Catatonic schizophrenia SNOMED: 938872211 Status: unchanged Status Narrative Discussed with Dr. Vang. Assessment/Plan Refusing all care, patient will need PEG >> unable to contact consenting alliance party ST evaluation reviewed >> unable to be performed Calorie count after evaluation to see if nutritional needs are met, refusing all care IV and p.o. hydration Anemia work-up Occult blood stool to rule out any GI bleed PPI We will follow on a daily basis with any additional recommendations The patient was seen and examined at bedside and all new and available data was reviewed in the patients chart. I agree with the above findings, impression and plan. (Patient seen earlier today. Signature stamp does not reflect patient encounter time.). - Joey Vang MD Subjective Subjective limited Objective Last 24 Hour Vital Signs Date Time Temp Pulse Resp B/P (MAP) Pulse Ox O2 Delivery O2 Flow Rate FiO2 10/24/19 08:58 Room Air 10/24/19 08:00 97.9 72 17 113/75 (88) 98 10/24/19 04:00 98.2 100 20 128/85 (99) 98 10/24/19 00:00 98.2 100 20 120/87 (98) 98 10/23/19 21:00 Room Air 10/23/19 20:00 98.2 97 20 135/88 (104) 96 10/23/19 16:00 97.9 87 17 103/76 (85) 100 Intake and Output 10/23/19 10/24/19 19:00 07:00 Intake Total 50 ml 550 ml Output Total 800 ml Balance -750 ml 550 ml Intake IV Total 50 ml 550 ml Output Urine Total 800 ml Laboratory Tests Test 10/23/19 15:45 10/24/19 06:24 Urine Color Pale yellow Urine Appearance Clear Urine pH 8 (4.5-8.0) Urine Specific [place] 1.010 (1.005-1.035) Urine Protein Negative (NEGATIVE) Urine Glucose (UA) Negative (NEGATIVE) Urine Ketones Negative (NEGATIVE) Urine Blood 5+ (NEGATIVE) H Urine Nitrite Negative (NEGATIVE) Urine Bilirubin Negative (NEGATIVE) Urine Urobilinogen Normal MG/DL (0.0-1.0) Urine Leukocyte Esterase 1+ (NEGATIVE) H Urine RBC 30-40 /HPF (0 - 2) H Urine WBC 2-4 /HPF (0 - 2) Urine Squamous Epithelial Cells Occasional /LPF Urine Bacteria Few /HPF (NONE) White Blood Count Pending Red Blood Count Pending Hemoglobin Pending Hematocrit Pending Mean Corpuscular Volume Pending Mean Corpuscular Hemoglobin Pending Mean Corpuscular Hemoglobin Concent Pending Red Cell Distribution Width Pending Platelet Count Pending Mean Platelet Volume Pending Neutrophils (%) (Auto) Pending Lymphocytes (%) (Auto) Pending Monocytes (%) (Auto) Pending Eosinophils (%) (Auto) Pending Basophils (%) (Auto) Pending Reticulocyte Count 0.7 % (0.5-2.0) Prothrombin Time 10.7 SEC (9.30-11.50) Prothromb Time International Ratio 1.0 (0.9-1.1) Activated Partial Thromboplast Time 28 SEC (23-33) Sodium Level Pending Potassium Level Pending Chloride Level Pending Carbon Dioxide Level Pending Blood Urea Nitrogen Pending Creatinine Pending Estimat Glomerular Filtration Rate Pending Glucose Level Pending Hemoglobin A1c Pending Uric Acid 5.0 MG/DL (2.6-7.2) Calcium Level Pending Phosphorus Level 3.9 MG/DL (2.5-4.9) Magnesium Level 1.8 MG/DL (1.8-2.4) Iron Level 31 ug/dL (50-175) L Total Iron Binding Capacity 219 ug/dL (250-450) L Percent Iron Saturation 14 % (15-50) L Unsaturated Iron Binding 188 ug/dL (112-346) Ferritin Pending Total Bilirubin Pending Gamma Glutamyl Transpeptidase 21 U/L (5-85) Aspartate Amino Transf (AST/SGOT) Pending Alanine Aminotransferase (ALT/SGPT) Pending Alkaline Phosphatase Pending C-Reactive Protein, Quantitative 1.2 mg/dL (0.00-0.90) H Pro-B-Type Natriuretic Peptide Pending Total Protein Pending Albumin Pending Globulin Pending Vitamin B12 Level 537 PG/ML (193-986) Folate Pending Thyroid Stimulating Hormone (TSH) Pending Free Thyroxine Pending Height (Feet): 5 Height (Inches): 9.00 Weight (Pounds): 151 General Appearance: alert Cardiovascular: normal rate Respiratory/Chest: normal breath sounds, no respiratory distress Abdominal Exam: soft Jerel Tran NP Oct 24, 2019 12:18
--- NOTE | 2019-10-24 14:35 | Surgery Progress Note ---
Surgery Progress Note Subjective Symptoms: improved, tolerating diet, voiding well, passing flatus Objective Last 24 Hour Vital Signs Date Time Temp Pulse Resp B/P (MAP) Pulse Ox O2 Delivery O2 Flow Rate FiO2 10/24/19 12:00 97.9 56 17 131/77 (95) 96 10/24/19 08:58 Room Air 10/24/19 08:00 97.9 72 17 113/75 (88) 98 10/24/19 04:00 98.2 100 20 128/85 (99) 98 10/24/19 00:00 98.2 100 20 120/87 (98) 98 10/23/19 21:00 Room Air 10/23/19 20:00 98.2 97 20 135/88 (104) 96 10/23/19 16:00 97.9 87 17 103/76 (85) 100 I&O Intake and Output 10/23/19 10/24/19 19:00 07:00 Intake Total 50 ml 550 ml Output Total 800 ml Balance -750 ml 550 ml Intake IV Total 50 ml 550 ml Output Urine Total 800 ml Dressing: other Wound: other Drains: other Cardiovascular: RSR Respiratory: decreased breath sounds Abdomen: soft, non-tender, present bowel sounds Extremities: no tenderness, no cyanosis, other Laboratory Tests Test 10/23/19 15:45 10/24/19 06:24 Urine Color Pale yellow Urine Appearance Clear Urine pH 8 (4.5-8.0) Urine Specific [employer] 1.010 (1.005-1.035) Urine Protein Negative (NEGATIVE) Urine Glucose (UA) Negative (NEGATIVE) Urine Ketones Negative (NEGATIVE) Urine Blood 5+ (NEGATIVE) H Urine Nitrite Negative (NEGATIVE) Urine Bilirubin Negative (NEGATIVE) Urine Urobilinogen Normal MG/DL (0.0-1.0) Urine Leukocyte Esterase 1+ (NEGATIVE) H Urine RBC 30-40 /HPF (0 - 2) H Urine WBC 2-4 /HPF (0 - 2) Urine Squamous Epithelial Cells Occasional /LPF Urine Bacteria Few /HPF (NONE) White Blood Count Pending Red Blood Count Pending Hemoglobin Pending Hematocrit Pending Mean Corpuscular Volume Pending Mean Corpuscular Hemoglobin Pending Mean Corpuscular Hemoglobin Concent Pending Red Cell Distribution Width Pending Platelet Count Pending Mean Platelet Volume Pending Neutrophils (%) (Auto) Pending Lymphocytes (%) (Auto) Pending Monocytes (%) (Auto) Pending Eosinophils (%) (Auto) Pending Basophils (%) (Auto) Pending Reticulocyte Count 0.7 % (0.5-2.0) Prothrombin Time 10.7 SEC (9.30-11.50) Prothromb Time International Ratio 1.0 (0.9-1.1) Activated Partial Thromboplast Time 28 SEC (23-33) Sodium Level Pending Potassium Level Pending Chloride Level Pending Carbon Dioxide Level Pending Blood Urea Nitrogen Pending Creatinine Pending Estimat Glomerular Filtration Rate Pending Glucose Level Pending Hemoglobin A1c Pending Uric Acid 5.0 MG/DL (2.6-7.2) Calcium Level Pending Phosphorus Level 3.9 MG/DL (2.5-4.9) Magnesium Level 1.8 MG/DL (1.8-2.4) Iron Level 31 ug/dL (50-175) L Total Iron Binding Capacity 219 ug/dL (250-450) L Percent Iron Saturation 14 % (15-50) L Unsaturated Iron Binding 188 ug/dL (112-346) Ferritin Pending Total Bilirubin Pending Gamma Glutamyl Transpeptidase 21 U/L (5-85) Aspartate Amino Transf (AST/SGOT) Pending Alanine Aminotransferase (ALT/SGPT) Pending Alkaline Phosphatase Pending C-Reactive Protein, Quantitative 1.2 mg/dL (0.00-0.90) H Pro-B-Type Natriuretic Peptide Pending Total Protein Pending Albumin Pending Globulin Pending Vitamin B12 Level 537 PG/ML (193-986) Folate Pending Thyroid Stimulating Hormone (TSH) Pending Free Thyroxine Pending Plan Problems: (1) Failure to thrive in adult Assessment & Plan: DAILY ESTIMATED NEEDS: Needs based on FTT/ 65kg 25-30 kcals/kg 9253-1823 total kcals 1-1.2 g protein/kg 65-78 g total protein 25-30 mL/kg 0760-2787 total fluid mLs NUTRITION DIAGNOSIS: Inadequate oral intake R/T decreased appetite, psych issues as evidenced by admitted w/ FTT dx, refusing meals and oral meds, AMS, dx of catatonic schizophrenia. 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 or as tolerated ENTERAL NUTRITION RECOMMENDATIONS: Jevity 1.2 @ 60ml/hr x 24 hrs to provide 1440ml, 1728kcal, 79g prot, 1162ml free water * W/ continued refusal of meals and if TF part of POC -> obtain GI access, initiate Jevity 1.2 @ 20ml/hr x 6 hrs -> advance 10ml q 4-6 hrs as tolerated to goal rate -> HOB over 30 degrees -> H20 flush of 120ml q 4 hrs without IVF ADDITIONAL RECOMMENDATIONS: * Psych consult * Monitor PO intake closely: Refusing meals + meds at this time * Ensure Enlive TID w/ meals if pt receptive * TF rec as above if TF part of POC and w/ continued refusing meals * WC eval for wound photos -> MVI x 1 + Rehan 1pkt BID if pt receptive (2) Decubitus skin ulcer Assessment & Plan: Pt presented on admission with DTPI R and L heels. R heel noted to have an area that is maroon fluctuant with surrounding non- blanching erythema.(L)2.4cm x (W)1.6cm. L heel noted to have an area that is purple with red margins ,surrounding non- blanching erythema which is boggy.(L)3.3cm x (W)1.5cm. Skin is dry Sacrum/buttocks without erythema or evidence of skin breakdown noted. No other skin concerns noted . PT identified as high risks for skin breakdown secondary,immobility,rigidity, Incontinence,Dx.of failure to thrive,and presence of pressure injuries. Wound prevention protocols initiated.Moisture Barrier paste applied to Sacrum and covered with Optifoam drsg.Pt positioned on side with pillow.HOB at 30 degrees. Cavilon Skin Barrier applied to both heels and each heel covered with Optifoam drsg. Heels floated off mattress with pillow. Pt placed on an APM/CELIA mattress overlay. Tx.plan: Apply Moisture Barrier Paste to Sacrum.Cover with Optifoam drsg. Change every 3 days and prn. Reposition at least every 2hours or as tolerated. Apply Cavilon Skin Barrier to both heels.Cover each heel with Optifoam drsg. Change every 7 days and prn. Off-load heels with pillow. APM/CELIA Mattress overlay. Rodney Vaca Oct 24, 2019 14:35
[2019-10-24 15:53] LABS: HEMATOCRIT 34.8 % (37.0-47.0); HEMOGLOBIN 10.7 G/DL (12.0-16.0); MEAN CORPUSCULAR VOLUME 83 FL (80-99); RED BLOOD COUNT 4.18 M/UL (4.20-5.40); WHITE BLOOD COUNT 8.6 K/UL (4.8-10.8)
[2019-10-24 15:54] LABS: PLATELET COUNT 137 K/UL (150-450); RED CELL DISTRIBUTION WIDTH 16.6 % (11.6-14.8)
[2019-10-24 15:55] LABS: EOSINOPHILS % (AUTO) 1.3 % (0.0-3.0); LYMPHOCYTES % (AUTO) 41.4 % (20.0-45.0); MONOCYTES % (AUTO) 6.3 % (1.0-10.0); NEUTROPHILS % (AUTO) 49.6 % (45.0-75.0)
[2019-10-24 16:00] VITALS: BP 144/94
[2019-10-24 17:21] LABS: ALANINE AMINOTRANSFERASE 20 U/L (12-78); ALBUMIN 3.2 G/DL (3.4-5.0); ALBUMIN/GLOBULIN RATIO 0.9 (1.0-2.7); ALKALINE PHOSPHATASE 32 U/L (46-116); ANION GAP 13 mmol/L (5-15); ASPARTATE AMINO TRANSFERASE 23 U/L (15-37); BILIRUBIN,TOTAL 0.4 MG/DL (0.2-1.0); BLOOD UREA NITROGEN 3 mg/dL (7-18); CALCIUM 9.4 MG/DL (8.5-10.1); CARBON DIOXIDE 22 MMOL/L (21-32); CHLORIDE 110 MMOL/L (98-107); CREATININE 0.7 MG/DL (0.55-1.30); FERRITIN 185 NG/ML (8-388); POTASSIUM 3.9 MMOL/L (3.5-5.1); SODIUM 145 MMOL/L (136-145)
[2019-10-24 20:00] VITALS: BP 123/83
[2019-10-25] VITALS: BP 126/86
[2019-10-25] MEDS: cefTRIAXone 1 GM in D5W 55 ML IVPB SCH (02:05)
[2019-10-25 04:00] VITALS: BP 122/85
[2019-10-25 05:38] LABS: HEMATOCRIT 36.4 % (37.0-47.0); WHITE BLOOD COUNT 11.2 K/UL (4.8-10.8)
[2019-10-25 05:39] LABS: MEAN CORPUSCULAR VOLUME 81 FL (80-99); PLATELET COUNT 158 K/UL (150-450); RED CELL DISTRIBUTION WIDTH 14.3 % (11.6-14.8)
[2019-10-25 07:04] LABS: ANION GAP 11 mmol/L (5-15); BLOOD UREA NITROGEN 5 mg/dL (7-18); CALCIUM 9.2 MG/DL (8.5-10.1); CARBON DIOXIDE 24 MMOL/L (21-32); CHLORIDE 106 MMOL/L (98-107); CREATININE 0.7 MG/DL (0.55-1.30); POTASSIUM 3.8 MMOL/L (3.5-5.1); SODIUM 141 MMOL/L (136-145)
[2019-10-25 08:00] VITALS: BP 139/88
[2019-10-25] MEDS: Fluconazole 100mg tab ORAL SCH ×3 (09:48→09:54)
[2019-10-25] MEDS: Docusate 100mg cap ORAL SCH ×4 (09:48→17:04)
[2019-10-25] MEDS: Heparin 5000 units/ml inj SUBQ SCH ×2 (09:51→21:00)
--- NOTE | 2019-10-25 10:21 | Infectious Diseases Prog Note ---
Assessment/Plan Assessment/Plan Assessment: FTT Dehydration catatonic schizophrenia Afebrile Mild leukocytosis Pyuria -u/a wbc 30-40, nit neg, leuk +2, sq cell mod; ucx Neg -repaet u/a wbc 2-4, nit neg, leuk +1, sq cell occasional MD resident HIV sc neg Plan: -Continue empiric Ceftriaxone #3/3 -f/u cx -Monitor CBC/CMP, temperatures -Pscyh f/u Thank you for this consultation. Will continue to follow along with you. Discussed with RN Subjective Allergies: Coded Allergies: No Known Allergies (Unverified , 10/22/19) Subjective afebrile mild leukocytosis Objective Vital Signs Last 24 Hour Vital Signs Date Time Temp Pulse Resp B/P (MAP) Pulse Ox O2 Delivery O2 Flow Rate FiO2 10/25/19 09:19 Room Air 10/25/19 08:00 97.3 105 18 139/88 (105) 99 10/25/19 04:00 97.7 100 16 122/85 (97) 97 10/25/19 00:00 97.9 98 17 126/86 (99) 96 10/24/19 21:00 Room Air 10/24/19 20:00 99.0 99 16 123/83 (96) 98 10/24/19 16:00 98.0 78 17 144/94 (111) 96 10/24/19 12:00 97.9 56 17 131/77 (95) 96 Height (Feet): 5 Height (Inches): 9.00 Weight (Pounds): 151 Objective General Appearance: no apparent distress, alert, cachetic, thin Head: normocephalic, atraumatic Eyes: bilateral eye PERRL, bilateral eye EOMI ENT: hearing grossly normal, normal pharynx Neck: full range of motion, supple, no meningismus Respiratory: chest non-tender, lungs clear, normal breath sounds Cardiovascular #1: regular rate, rhythm, no murmur Gastrointestinal: normal bowel sounds, non tender, no mass, no organomegaly, no bruit, non-distended Musculoskeletal: back normal, normal range of motion, gait/station normal Neurologic: grossly normal Psychiatric: other - Patient is catatonic. Not moving much. Microbiology Date/Time Source Procedure Growth Status 10/23/19 01:00 Urine,Clean Catch Urine Culture - Final NO GROWTH AFTER 48 HOURS Complete 10/23/19 02:00 Rectum - Final NO CARBAPENEM-RESISTANT ENTEROBACTERI... Complete 10/23/19 02:00 Rectum VRE Culture - Final NO VANCOMYCIN RESISTANT ENTEROCOCCUS ... Complete Laboratory Tests Test 10/25/19 04:53 White Blood Count 11.2 K/UL (4.8-10.8) H Red Blood Count 4.50 M/UL (4.20-5.40) Hemoglobin 12.0 G/DL (12.0-16.0) Hematocrit 36.4 % (37.0-47.0) L Mean Corpuscular Volume 81 FL (80-99) Mean Corpuscular Hemoglobin 26.6 PG (27.0-31.0) L Mean Corpuscular Hemoglobin Concent 32.9 G/DL (32.0-36.0) Red Cell Distribution Width 14.3 % (11.6-14.8) Platelet Count 158 K/UL (150-450) Mean Platelet Volume 10.9 FL (6.5-10.1) H Neutrophils (%) (Auto) % (45.0-75.0) Lymphocytes (%) (Auto) % (20.0-45.0) Monocytes (%) (Auto) % (1.0-10.0) Eosinophils (%) (Auto) % (0.0-3.0) Basophils (%) (Auto) % (0.0-2.0) Prothrombin Time 10.5 SEC (9.30-11.50) Prothromb Time International Ratio 1.0 (0.9-1.1) Activated Partial Thromboplast Time 28 SEC (23-33) Sodium Level 141 MMOL/L (136-145) Potassium Level 3.8 MMOL/L (3.5-5.1) Chloride Level 106 MMOL/L (98-107) Carbon Dioxide Level 24 MMOL/L (21-32) Anion Gap 11 mmol/L (5-15) Blood Urea Nitrogen 5 mg/dL (7-18) L Creatinine 0.7 MG/DL (0.55-1.30) Estimat Glomerular Filtration Rate > 60 mL/min (>60) Glucose Level 95 MG/DL (74-106) Calcium Level 9.2 MG/DL (8.5-10.1) Rapid Plasma Reagin Pending Current Medications Medications (Trade) Dose Ordered Sig/Kirby Route PRN Reason Start Time Stop Time Status Last Admin Dose Admin Acetaminophen (Tylenol) 325 mg Q4H PRN ORAL Mild Pain/Temp > 100.5 10/23/19 06:15 11/22/19 06:14 Ceftriaxone Sodium 1 gm/ Dextrose 55 ml @ 110 mls/hr Q24H IVPB 10/24/19 02:00 10/31/19 01:59 10/25/19 02:05 Dextrose 1,000 ml @ 50 mls/hr Q20H IV 10/23/19 15:30 11/22/19 15:29 10/25/19 06:16 Docusate Sodium (Colace) 100 mg BID ORAL 10/23/19 09:00 11/22/19 08:59 Fluconazole (Diflucan) 100 mg DAILY ORAL 10/23/19 09:00 10/30/19 08:59 Heparin Sodium (Porcine) (Heparin 5000 units/ml) 5,000 units EVERY 12 HOURS SUBQ 10/23/19 09:00 11/22/19 08:59 Megestrol Acetate (Megace) 400 mg BID ORAL 10/23/19 09:00 10/28/19 08:59 Pantoprazole (Protonix) 40 mg EVERY 12 HOURS ORAL 10/23/19 21:00 11/22/19 20:59 Ankita Jama M.D. Oct 25, 2019 10:21
--- NOTE | 2019-10-25 10:45 | GI Progress Note ---
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 Vang. Assessment/Plan ST evaluation reviewed >> unable to be performed Calorie count not done, patient refused to eat. Reported that the patient ate her dinner last night. Refusing all care, patient will need PEG to meet nutritional needs >> family agreed, will scheduled PEG for tomorrow. - NPO @ DE. - hold all blood thinners tonight IV and p.o. hydration Occult blood stool to rule out any GI bleed PPI We will follow on a daily basis with any additional recommendations The patient was seen and examined at bedside and all new and available data was reviewed in the patients chart. I agree with the above findings, impression and plan. (Patient seen earlier today. Signature stamp does not reflect patient encounter time.). - Joey Vang MD Subjective Subjective limited Objective Last 24 Hour Vital Signs Date Time Temp Pulse Resp B/P (MAP) Pulse Ox O2 Delivery O2 Flow Rate FiO2 10/25/19 09:19 Room Air 10/25/19 08:00 97.3 105 18 139/88 (105) 99 10/25/19 04:00 97.7 100 16 122/85 (97) 97 10/25/19 00:00 97.9 98 17 126/86 (99) 96 10/24/19 21:00 Room Air 10/24/19 20:00 99.0 99 16 123/83 (96) 98 10/24/19 16:00 98.0 78 17 144/94 (111) 96 10/24/19 12:00 97.9 56 17 131/77 (95) 96 Intake and Output 10/24/19 10/25/19 19:00 07:00 Intake Total 500 ml 555 ml Output Total 2600 ml Balance 500 ml -2045 ml Intake IV Total 500 ml 555 ml Output Urine Total 2600 ml Laboratory Tests Test 10/25/19 04:53 White Blood Count 11.2 K/UL (4.8-10.8) H Red Blood Count 4.50 M/UL (4.20-5.40) Hemoglobin 12.0 G/DL (12.0-16.0) Hematocrit 36.4 % (37.0-47.0) L Mean Corpuscular Volume 81 FL (80-99) Mean Corpuscular Hemoglobin 26.6 PG (27.0-31.0) L Mean Corpuscular Hemoglobin Concent 32.9 G/DL (32.0-36.0) Red Cell Distribution Width 14.3 % (11.6-14.8) Platelet Count 158 K/UL (150-450) Mean Platelet Volume 10.9 FL (6.5-10.1) H Neutrophils (%) (Auto) % (45.0-75.0) Lymphocytes (%) (Auto) % (20.0-45.0) Monocytes (%) (Auto) % (1.0-10.0) Eosinophils (%) (Auto) % (0.0-3.0) Basophils (%) (Auto) % (0.0-2.0) Prothrombin Time 10.5 SEC (9.30-11.50) Prothromb Time International Ratio 1.0 (0.9-1.1) Activated Partial Thromboplast Time 28 SEC (23-33) Sodium Level 141 MMOL/L (136-145) Potassium Level 3.8 MMOL/L (3.5-5.1) Chloride Level 106 MMOL/L (98-107) Carbon Dioxide Level 24 MMOL/L (21-32) Anion Gap 11 mmol/L (5-15) Blood Urea Nitrogen 5 mg/dL (7-18) L Creatinine 0.7 MG/DL (0.55-1.30) Estimat Glomerular Filtration Rate > 60 mL/min (>60) Glucose Level 95 MG/DL (74-106) Calcium Level 9.2 MG/DL (8.5-10.1) Rapid Plasma Reagin Pending Height (Feet): 5 Height (Inches): 9.00 Weight (Pounds): 151 General Appearance: WD/WN, no apparent distress, alert Cardiovascular: normal rate Respiratory/Chest: normal breath sounds, no respiratory distress Abdominal Exam: normal bowel sounds, non tender, soft Extremities: normal range of motion, non-tender eJrel Tran [employer]OT[employer] Oct 25, 2019 10:45
--- NOTE | 2019-10-25 11:00 | Consultation ---
DATE OF CONSULTATION: 10/23/2019 NOTE: POOR QUALITY AUDIO PSYCHOTHERAPY CONSULTATION PROGRESS NOTE CONSULTING PHYSICIAN: Mary Acosta PsyD. TREATING ATTENDING: Carl Kendall D.O. HISTORY OF PRESENT ILLNESS: This is a 48-year-old female patient who hospital for failure to thrive in [place]. verbally responding to and she has been catatonic throughout, and the patient does have a history of schizophrenia. For these reasons, she is referred for psychotherapeutic services. When I assessed the patient, the patient is not verbally responsive. she does not verbally respond, she is not opening her eyes, she is not physically responding. She is awake, however confused, appearing catatonic at this time. She has had no significant behavioral disturbances. She is not according to nursing staff. She . The patient today had not been eating . At this time, there is no indication of suicidal or homicidal thoughts the patient is catatonic at this time. She is a very poor historian and she is not communicating; and therefore, . The patient at this time is catatonic. PAST MEDICAL HISTORY: Dehydration and catatonia. ALLERGIES: The patient has no known drug allergies. SUBSTANCE ABUSE HISTORY: There is no significant history of alcohol use, drug use, or illicit substance use. Smoking cigarettes . PSYCHIATRIC HISTORY: The patient does have a history of paranoid schizophrenia and has been treated with psychotropic medications in the past. SOCIAL HISTORY: The patient is a 48-year-old female patient from [facility] Financially sustained through [facility]. MENTAL STATUS EXAMINATION: She is alert and oriented to person. Her mood is dysphoric. Affect is blunted. Thought process is disorganized. The patient has poor attention and concentration. Poor insight, judgment, and impulse control. She remains catatonic and not responding verbally. . DIAGNOSES: 1. Paranoid schizophrenia. 2. Catatonia. 3. Dehydration. 4. Psychosocial stressors, moderate. ASSESSMENT AND PLAN: I assessed the patient and provided the patient with: 1. Reality orientation, which is focused on improving cognitive function of the patient, who is very confused and disorganized. Oriented to person, place, time, and situation. 2. however the patient is catatonic, she is not responding verbally at this time, not responding to any verbal commands. She had her eyes open. PLAN: 1. Plan is to maintain medication compliance with positive coping skills, none possible at this time for the patient. The patient had been . . Mary Acosta PsyD. DR: EVETTE JOB#: [id number] CC:
[2019-10-25 12:00] VITALS: BP 130/81
--- NOTE | 2019-10-25 13:36 | General Progress Note ---
Assessment/Plan Problem List: (1) Dehydration ICD Codes: E86.0 - Dehydration SNOMED: 31293742 (2) Failure to thrive in adult ICD Codes: R62.7 - Adult failure to thrive SNOMED: 115354948 (3) Decubitus skin ulcer ICD Codes: L89.90 - Pressure ulcer of unspecified site, unspecified stage SNOMED: 158816694 (4) UTI (urinary tract infection) ICD Codes: N39.0 - Urinary tract infection, site not specified SNOMED: 12834143 Qualifiers: Qualified Codes: N30.00 - Acute cystitis without hematuria (5) Schizophrenic catatonia ICD Codes: F20.2 - Catatonic schizophrenia SNOMED: 841556271 Status: stable, unchanged Assessment/Plan: pt diet abx wound care psyc f/u cbc bmp am psyc transfer Subjective Constitutional: Reports: weakness Allergies: Coded Allergies: No Known Allergies (Unverified , 10/22/19) All Systems: reviewed and negative except above Subjective sleepy calm in bed Objective Last 24 Hour Vital Signs Date Time Temp Pulse Resp B/P (MAP) Pulse Ox O2 Delivery O2 Flow Rate FiO2 10/25/19 09:19 Room Air 10/25/19 08:00 97.3 105 18 139/88 (105) 99 10/25/19 04:00 97.7 100 16 122/85 (97) 97 10/25/19 00:00 97.9 98 17 126/86 (99) 96 10/24/19 21:00 Room Air 10/24/19 20:00 99.0 99 16 123/83 (96) 98 10/24/19 16:00 98.0 78 17 144/94 (111) 96 Intake and Output 10/24/19 10/25/19 19:00 07:00 Intake Total 500 ml 555 ml Output Total 2600 ml Balance 500 ml -2045 ml Intake IV Total 500 ml 555 ml Output Urine Total 2600 ml Laboratory Tests 10/25/19 04:53: White Blood Count 11.2H, Red Blood Count 4.50, Hemoglobin 12.0, Hematocrit 36.4L , Mean Corpuscular Volume 81, Mean Corpuscular Hemoglobin 26.6L, Mean Corpuscular Hemoglobin Concent 32.9, Red Cell Distribution Width 14.3, Platelet Count 158, Mean Platelet Volume 10.9H, Neutrophils (%) (Auto) , Lymphocytes (%) (Auto) , Monocytes (%) (Auto) , Eosinophils (%) (Auto) , Basophils (%) (Auto) , Prothrombin Time 10.5, Prothromb Time International Ratio 1.0, Activated Partial Thromboplast Time 28, Sodium Level 141, Potassium Level 3.8, Chloride Level 106, Carbon Dioxide Level 24, Anion Gap 11, Blood Urea Nitrogen 5L, Creatinine 0.7, Estimat Glomerular Filtration Rate > 60, Glucose Level 95, Calcium Level 9.2, Rapid Plasma Reagin [Pending] Height (Feet): 5 Height (Inches): 9.00 Weight (Pounds): 151 General Appearance: lethargic EENT: normal ENT inspection Neck: normal alignment Cardiovascular: normal peripheral pulses, normal rate, regular rhythm Respiratory/Chest: chest wall non-tender, lungs clear, normal breath sounds Abdomen: normal bowel sounds, non tender, soft Extremities: normal inspection Edema: no edema noted Arm (L), no edema noted Arm (R), no edema noted Leg (L), no edema noted Leg (R), no edema noted Pedal (L), no edema noted Pedal (R), no edema noted Generalized Neurologic: motor weakness Skin: normal pigmentation, warm/dry Carl Kendall DO Oct 25, 2019 13:36
--- NOTE | 2019-10-25 14:01 | Consultation ---
History of Present Illness General Chief Complaint: Generalized Weakness Referring physician: RILEY ELDRIDGE Reason for Consultation: FTT Present Illness Allergies: Coded Allergies: No Known Allergies (Unverified , 10/22/19) Medication History Scheduled Clozapine (ClozariL), 50 MG PO BID, (Reported) Docusate Sodium* (Colace*), 100 MG ORAL BID, (Reported) Fluconazole* (Diflucan*), 100 MG ORAL DAILY, (Reported) Lactobacillus Acidophilus (Acidophilus), 1 EACH PO TID, (Reported) Megestrol Acetate (Megestrol Acetate), 400 MG PO BID, (Reported) Scheduled PRN Acetaminophen* (Acetaminophen 325MG Tablet*), 325 MG ORAL Q4H PRN for Mild Pain/ Temp > 100.5, (Reported) Ibuprofen* (Motrin*), 600 MG ORAL Q6H PRN for Severe Pain (Pain Scale 7-10), ( Reported) Miscellaneous Medications Lactose-Reduced Food (Ensure Active Clear), 296 ML PO, (Reported) Patient History Healthcare decision maker Resuscitation status Advanced Directive on File Physical Exam Last 24 Hour Vital Signs Date Time Temp Pulse Resp B/P (MAP) Pulse Ox O2 Delivery O2 Flow Rate FiO2 10/25/19 09:19 Room Air 10/25/19 08:00 97.3 105 18 139/88 (105) 99 10/25/19 04:00 97.7 100 16 122/85 (97) 97 10/25/19 00:00 97.9 98 17 126/86 (99) 96 10/24/19 21:00 Room Air 10/24/19 20:00 99.0 99 16 123/83 (96) 98 10/24/19 16:00 98.0 78 17 144/94 (111) 96 Intake and Output 10/24/19 10/25/19 19:00 07:00 Intake Total 500 ml 555 ml Output Total 2600 ml Balance 500 ml -2045 ml Intake IV Total 500 ml 555 ml Output Urine Total 2600 ml Laboratory Tests Test 10/25/19 04:53 White Blood Count 11.2 K/UL (4.8-10.8) H Red Blood Count 4.50 M/UL (4.20-5.40) Hemoglobin 12.0 G/DL (12.0-16.0) Hematocrit 36.4 % (37.0-47.0) L Mean Corpuscular Volume 81 FL (80-99) Mean Corpuscular Hemoglobin 26.6 PG (27.0-31.0) L Mean Corpuscular Hemoglobin Concent 32.9 G/DL (32.0-36.0) Red Cell Distribution Width 14.3 % (11.6-14.8) Platelet Count 158 K/UL (150-450) Mean Platelet Volume 10.9 FL (6.5-10.1) H Neutrophils (%) (Auto) % (45.0-75.0) Lymphocytes (%) (Auto) % (20.0-45.0) Monocytes (%) (Auto) % (1.0-10.0) Eosinophils (%) (Auto) % (0.0-3.0) Basophils (%) (Auto) % (0.0-2.0) Prothrombin Time 10.5 SEC (9.30-11.50) Prothromb Time International Ratio 1.0 (0.9-1.1) Activated Partial Thromboplast Time 28 SEC (23-33) Sodium Level 141 MMOL/L (136-145) Potassium Level 3.8 MMOL/L (3.5-5.1) Chloride Level 106 MMOL/L (98-107) Carbon Dioxide Level 24 MMOL/L (21-32) Anion Gap 11 mmol/L (5-15) Blood Urea Nitrogen 5 mg/dL (7-18) L Creatinine 0.7 MG/DL (0.55-1.30) Estimat Glomerular Filtration Rate > 60 mL/min (>60) Glucose Level 95 MG/DL (74-106) Calcium Level 9.2 MG/DL (8.5-10.1) Rapid Plasma Reagin Pending Height (Feet): 5 Height (Inches): 9.00 Weight (Pounds): 151 Medications Current Medications Medications (Trade) Dose Ordered Sig/Kirby Route PRN Reason Start Time Stop Time Status Last Admin Dose Admin Acetaminophen (Tylenol) 325 mg Q4H PRN ORAL Mild Pain/Temp > 100.5 10/23/19 06:15 11/22/19 06:14 Dextrose 1,000 ml @ 50 mls/hr Q20H IV 10/23/19 15:30 11/22/19 15:29 10/25/19 06:16 Docusate Sodium (Colace) 100 mg BID ORAL 10/23/19 09:00 11/22/19 08:59 Fluconazole (Diflucan) 100 mg DAILY ORAL 10/23/19 09:00 10/30/19 08:59 Heparin Sodium (Porcine) (Heparin 5000 units/ml) 5,000 units EVERY 12 HOURS SUBQ 10/23/19 09:00 11/22/19 08:59 Megestrol Acetate (Megace) 400 mg BID ORAL 10/23/19 09:00 10/28/19 08:59 Pantoprazole (Protonix) 40 mg EVERY 12 HOURS ORAL 10/23/19 21:00 11/22/19 20:59 Assessment/Plan Assessment/Plan: Hematology Consult REQ MD: Maura Eldridge RFC: Pancytopenia DOS: 10/25/2019 ID Is a 48-year-old female with a history of schizophrenia. [place] She presents with chief complaint of altered mental status. For the last few days she is not taking her medication. Not eating or drinking. Very catatonic per EMS. Unable get any history because she is not verbalizing her complaints. At baseline she is conversive. Also noted to have decreased counts , though today better hAs been seen by surgery, gi, id, recs noted Allergies: Coded Allergies: No Known Allergies (Unverified , 10/22/19) Patient History Past Medical History: see triage record, old chart reviewed, psych hx Past Surgical History: other Pertinent Family History: none Social History: Denies: smoking Now: No Immunizations: other Reviewed Nursing Documentation: PMH: Agreed; PSxH: Agreed Review of Systems Constitutional: Reports: weakness All Other Systems: limited - Secondary to her condition Physical Exam: Vitals: reviewed General Appearance: NAD HEENT: normocephalic, atraumatic Neck: non-tender, normal alignment Respiratory/Chest: normal breath sounds bilaterally Cardiovascular/Chest: normal peripheral pulses, normal rate Abdomen: normal bowel sounds, soft, nontender Extremities: normal range of motion Neuro: not moving much ++ catatonia Labs: noted Imaging: reviewed Assessment and Recs: # Pancytopenia -- multiple etiologies could be related to underlying liver disease, medication-induced, infection versus viral syndrome versus underlying bone marrow cause --> peripheral smear has been ordered and does not show significant abnormalities --> Medications have been reviewed --> Continue to monitor for improvement, trend cbc --> Hep panel and HIV BOTH NEG --> US abd ordered to r/o cirrhosis and hepatosplenomegaly --> reverse isolation if ANC is <2000 --> Give neupogen if ANC <1000 --> Transfuse if hgb <7, with 1 unit prbc # Failure to thrive in adult --> daily weights, pt as needed --> considering peg # UTI (urinary tract infection) --> s/p abx # 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 Greatly appreciate consultation. Chris Gates MD Oct 25, 2019 14:01
--- NOTE | 2019-10-25 15:23 | Surgery Progress Note ---
Surgery Progress Note Subjective Additional Comments no acute events labs noted exam stable still not responsive Objective Last 24 Hour Vital Signs Date Time Temp Pulse Resp B/P (MAP) Pulse Ox O2 Delivery O2 Flow Rate FiO2 10/25/19 12:00 98.1 98 18 130/81 (97) 98 10/25/19 09:19 Room Air 10/25/19 08:00 97.3 105 18 139/88 (105) 99 10/25/19 04:00 97.7 100 16 122/85 (97) 97 10/25/19 00:00 97.9 98 17 126/86 (99) 96 10/24/19 21:00 Room Air 10/24/19 20:00 99.0 99 16 123/83 (96) 98 10/24/19 16:00 98.0 78 17 144/94 (111) 96 I&O Intake and Output 10/24/19 10/25/19 19:00 07:00 Intake Total 500 ml 555 ml Output Total 2600 ml Balance 500 ml -2045 ml Intake IV Total 500 ml 555 ml Output Urine Total 2600 ml Dressing: other Wound: other Drains: other Cardiovascular: RSR Respiratory: decreased breath sounds Abdomen: soft, present bowel sounds, non-distended Extremities: no cyanosis, other Laboratory Tests Test 10/25/19 04:53 White Blood Count 11.2 K/UL (4.8-10.8) H Red Blood Count 4.50 M/UL (4.20-5.40) Hemoglobin 12.0 G/DL (12.0-16.0) Hematocrit 36.4 % (37.0-47.0) L Mean Corpuscular Volume 81 FL (80-99) Mean Corpuscular Hemoglobin 26.6 PG (27.0-31.0) L Mean Corpuscular Hemoglobin Concent 32.9 G/DL (32.0-36.0) Red Cell Distribution Width 14.3 % (11.6-14.8) Platelet Count 158 K/UL (150-450) Mean Platelet Volume 10.9 FL (6.5-10.1) H Neutrophils (%) (Auto) % (45.0-75.0) Lymphocytes (%) (Auto) % (20.0-45.0) Monocytes (%) (Auto) % (1.0-10.0) Eosinophils (%) (Auto) % (0.0-3.0) Basophils (%) (Auto) % (0.0-2.0) Prothrombin Time 10.5 SEC (9.30-11.50) Prothromb Time International Ratio 1.0 (0.9-1.1) Activated Partial Thromboplast Time 28 SEC (23-33) Sodium Level 141 MMOL/L (136-145) Potassium Level 3.8 MMOL/L (3.5-5.1) Chloride Level 106 MMOL/L (98-107) Carbon Dioxide Level 24 MMOL/L (21-32) Anion Gap 11 mmol/L (5-15) Blood Urea Nitrogen 5 mg/dL (7-18) L Creatinine 0.7 MG/DL (0.55-1.30) Estimat Glomerular Filtration Rate > 60 mL/min (>60) Glucose Level 95 MG/DL (74-106) Calcium Level 9.2 MG/DL (8.5-10.1) Rapid Plasma Reagin Pending Plan Problems: (1) Failure to thrive in adult Assessment & Plan: DAILY ESTIMATED NEEDS: Needs based on FTT/ 65kg 25-30 kcals/kg 3884-0314 total kcals 1-1.2 g protein/kg 65-78 g total protein 25-30 mL/kg 4919-5461 total fluid mLs NUTRITION DIAGNOSIS: Inadequate oral intake R/T decreased appetite, psych issues as evidenced by admitted w/ FTT dx, refusing meals and oral meds, AMS, dx of catatonic schizophrenia. CURRENT DIET:Regular PO DIET RECOMMENDATIONS: Liberalized REGULAR/ texture per PUBLICATIONS DESIGNER or as tolerated ENTERAL NUTRITION RECOMMENDATIONS: Jevity 1.2 @ 60ml/hr x 24 hrs to provide 1440ml, 1728kcal, 79g prot, 1162ml free water * W/ continued refusal of meals and if TF part of POC -> obtain GI access, initiate Jevity 1.2 @ 20ml/hr x 6 hrs -> advance 10ml q 4-6 hrs as tolerated to goal rate -> HOB over 30 degrees -> H20 flush of 120ml q 4 hrs without IVF ADDITIONAL RECOMMENDATIONS: * Psych consult * Monitor PO intake closely: Refusing meals + meds at this time * Ensure Enlive TID w/ meals if pt receptive * TF rec as above if TF part of POC and w/ continued refusing meals * WC eval for wound photos -> MVI x 1 + Rehan 1pkt BID if pt receptive (2) Decubitus skin ulcer Assessment & Plan: Pt presented on admission with DTPI R and L heels. R heel noted to have an area that is maroon fluctuant with surrounding non- blanching erythema.(L)2.4cm x (W)1.6cm. L heel noted to have an area that is purple with red margins ,surrounding non- blanching erythema which is boggy.(L)3.3cm x (W)1.5cm. Skin is dry Sacrum/buttocks without erythema or evidence of skin breakdown noted. No other skin concerns noted . PT identified as high risks for skin breakdown secondary,immobility,rigidity, Incontinence,Dx.of failure to thrive,and presence of pressure injuries. Wound prevention protocols initiated.Moisture Barrier paste applied to Sacrum and covered with Optifoam drsg.Pt positioned on side with pillow.HOB at 30 degrees. Cavilon Skin Barrier applied to both heels and each heel covered with Optifoam drsg. Heels floated off mattress with pillow. Pt placed on an APM/CELIA mattress overlay. Tx.plan: Apply Moisture Barrier Paste to Sacrum.Cover with Optifoam drsg. Change every 3 days and prn. Reposition at least every 2hours or as tolerated. Apply Cavilon Skin Barrier to both heels.Cover each heel with Optifoam drsg. Change every 7 days and prn. Off-load heels with pillow. APM/CELIA Mattress overlay. Rodney Vaca Oct 25, 2019 15:23
[2019-10-25 16:00] VITALS: BP 132/81
--- NOTE | 2019-10-25 17:45 | Progress Note ---
DATE: 10/25/2019 NOTE: DICTATION ENDED ABRUPTLY SUBJECTIVE: This is a 48-year-old patient with failure to thrive, . She is very confused and disorganized. She has altered mental status. . Natalie Martin M.D. DR: Sascha JOB#: [id number] CC:
[2019-10-25 20:00] VITALS: BP 119/78
[2019-10-26] VITALS (11 sets, daily range): BP systolic 110–141; BP diastolic 71–89
[2019-10-26 07:29] LABS: BASOPHILS % (AUTO) 1.2 % (0.0-2.0); EOSINOPHILS % (AUTO) 1.2 % (0.0-3.0); HEMATOCRIT 34.4 % (37.0-47.0); HEMOGLOBIN 11.6 G/DL (12.0-16.0); LYMPHOCYTES % (AUTO) 27.8 % (20.0-45.0); MEAN CORPUSCULAR VOLUME 79 FL (80-99); MONOCYTES % (AUTO) 6.4 % (1.0-10.0); NEUTROPHILS % (AUTO) 63.4 % (45.0-75.0); PLATELET COUNT 158 K/UL (150-450); RED BLOOD COUNT 4.35 M/UL (4.20-5.40); RED CELL DISTRIBUTION WIDTH 14.8 % (11.6-14.8); WHITE BLOOD COUNT 9.9 K/UL (4.8-10.8)
[2019-10-26 07:39] LABS: ANION GAP 13 mmol/L (5-15); BLOOD UREA NITROGEN 3 mg/dL (7-18); CALCIUM 9.5 MG/DL (8.5-10.1); CARBON DIOXIDE 23 MMOL/L (21-32); CHLORIDE 105 MMOL/L (98-107); CREATININE 0.6 MG/DL (0.55-1.30); POTASSIUM 3.3 MMOL/L (3.5-5.1); SODIUM 140 MMOL/L (136-145)
--- NOTE | 2019-10-26 08:16 | Anethesia Preoperative Eval ---
Anesthesia Pre-op PMH/ROS General Date of Evaluation: Oct 26, 2019 Anesthesiologist: Rafael ASA Score: ASA 3 Mallampati Score Class I : Soft palate, uvula, fauces, pillars visible Class II: Soft palate, uvula, fauces visible Class III: Soft palate, base of uvula visible Class IV: Only hard plate visible Mallampati Classification: Class III Surgeon: Ciera Diagnosis: Dysphagia Surgical Procedure: EGD and PEG Anesthesia History: none Family History: no anesthesia problems Allergies: Coded Allergies: No Known Allergies (Unverified , 10/22/19) Medications: see eMAR Patient NPO?: Yes NPO Date: Oct 26, 2019 NPO Time: 00:00 Past Medical History Cardiovascular: Reports: HTN; Denies: CAD, [place], valve dz, arrhythmia, other Pulmonary: Denies: asthma, COPD, DANO, other Gastrointestinal/Genitourinary: Denies: GERD, CRI, ESRD, other Neurologic/Psychiatric: Reports: other - schizophrenia; Denies: dementia, CVA, depression/anxiety, TIA Endocrine: Denies: DM, hypothyroidism, steroids, other HEENT: Denies: cataract (L), cataract (R), glaucoma, KOI (L), KOI (R), other Hematology/Immune: Denies: anemia, DVT, bleeding disorder, other Musculoskeletal/Integumentary: Reports: other - catatonia; Denies: OA, RA, DJD, DDD, edema PSxH Narrative: unable to assess Anesthesia Pre-op Phys. Exam Physician Exam Last Vital Signs Date Time Temp Pulse Resp B/P (MAP) Pulse Ox O2 Delivery O2 Flow Rate FiO2 10/26/19 04:00 98.7 100 18 123/88 (100) 99 10/25/19 21:00 Room Air Constitutional: NAD Cardiovascular: RRR Respiratory: CTA Airway Exam Mallampati Score: Class III MO: limited ROM: limited Anesthesia Pre-op A/P Labs Hematology Test 10/26/19 06:07 White Blood Count 9.9 K/UL (4.8-10.8) Red Blood Count 4.35 M/UL (4.20-5.40) Hemoglobin 11.6 G/DL (12.0-16.0) L Hematocrit 34.4 % (37.0-47.0) L Mean Corpuscular Volume 79 FL (80-99) L Mean Corpuscular Hemoglobin 26.8 PG (27.0-31.0) L Mean Corpuscular Hemoglobin Concent 33.8 G/DL (32.0-36.0) Red Cell Distribution Width 14.8 % (11.6-14.8) Platelet Count 158 K/UL (150-450) Mean Platelet Volume 10.4 FL (6.5-10.1) H Neutrophils (%) (Auto) 63.4 % (45.0-75.0) Lymphocytes (%) (Auto) 27.8 % (20.0-45.0) Monocytes (%) (Auto) 6.4 % (1.0-10.0) Eosinophils (%) (Auto) 1.2 % (0.0-3.0) Basophils (%) (Auto) 1.2 % (0.0-2.0) Coagulation Test 10/26/19 06:07 Prothrombin Time 10.7 SEC (9.30-11.50) Prothromb Time International Ratio 1.0 (0.9-1.1) Activated Partial Thromboplast Time 28 SEC (23-33) Chemistry Test 10/26/19 06:07 Sodium Level 140 MMOL/L (136-145) Potassium Level 3.3 MMOL/L (3.5-5.1) L Chloride Level 105 MMOL/L (98-107) Carbon Dioxide Level 23 MMOL/L (21-32) Anion Gap 13 mmol/L (5-15) Blood Urea Nitrogen 3 mg/dL (7-18) L Creatinine 0.6 MG/DL (0.55-1.30) Estimat Glomerular Filtration Rate > 60 mL/min (>60) Glucose Level 88 MG/DL (74-106) Calcium Level 9.5 MG/DL (8.5-10.1) Studies Pre-op Studies: EKG - sr Risk Assessment & Plan Assessment: ASA III Plan: MAC Status Change Before Surgery: No Pre-Antibiotics Drug: Jenise Mistry MD Oct 26, 2019 08:16
--- NOTE | 2019-10-26 08:42 | Hematology/Onc Progress Note ---
Assessment/Plan Assessment/Plan Assessment and Recs: # Pancytopenia -- multiple etiologies could be related to underlying liver disease, medication-induced, infection versus viral syndrome versus underlying bone marrow cause --> peripheral smear has been ordered and does not show significant abnormalities --> Medications have been reviewed --> Continue to monitor for improvement, trend cbc --> Hep panel and HIV BOTH NEG --> US abd r/o cirrhosis and hepatosplenomegaly as per PRN order --> reverse isolation if ANC is <2000 --> Give neupogen if ANC <1000 --> Transfuse if hgb <7, with 1 unit prbc # Failure to thrive in adult --> daily weights, pt as needed --> considering peg # UTI (urinary tract infection) --> s/p abx # 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 Greatly appreciate consultation. Subjective Constitutional: Denies: no symptoms, chills, fever, malaise, weakness, other Cardiovascular: Denies: no symptoms, chest pain, edema, irregular heart rate, lightheadedness, palpitations, syncope, other Respiratory: Denies: no symptoms, cough, shortness of breath, SOB with excertion, SOB at rest, sputum, wheezing, other Gastrointestinal/Abdominal: Denies: no symptoms, abdomen distended, abdominal pain, black stools, tarry stools, blood in stool, constipated, diarrhea, difficulty swallowing, nausea, poor appetite, poor fluid intake, rectal bleeding , vomiting, other Neurologic/Psychiatric: Denies: no symptoms, anxiety, depressed, emotional problems, headache, numbness, paresthesia, pre-existing deficit, seizure, tingling, tremors, weakness, other Endocrine: Denies: no symptoms, excessive sweating, flushing, intolerance to cold, intolerance to heat, increased hunger, increased thirst, increased urine, unexplained weight gain, unexplained weight loss, other Allergies: Coded Allergies: No Known Allergies (Unverified , 10/22/19) Subjective 10/26: nonverbal, flat affect, labs noted, no bleeding Objective Objective Current Medications Medications (Trade) Dose Ordered Sig/Kirby Route PRN Reason Start Time Stop Time Status Last Admin Dose Admin Acetaminophen (Tylenol) 325 mg Q4H PRN ORAL Mild Pain/Temp > 100.5 10/23/19 06:15 11/22/19 06:14 Dextrose 1,000 ml @ 50 mls/hr Q20H IV 10/23/19 15:30 11/22/19 15:29 10/26/19 03:30 Docusate Sodium (Colace) 100 mg BID ORAL 10/23/19 09:00 11/22/19 08:59 Fluconazole (Diflucan) 100 mg DAILY ORAL 10/23/19 09:00 10/30/19 08:59 Heparin Sodium (Porcine) (Heparin 5000 units/ml) 5,000 units EVERY 12 HOURS SUBQ 10/23/19 09:00 11/22/19 08:59 Megestrol Acetate (Megace) 400 mg BID ORAL 10/23/19 09:00 10/28/19 08:59 Pantoprazole (Protonix) 40 mg EVERY 12 HOURS ORAL 10/23/19 21:00 11/22/19 20:59 Last 24 Hour Vital Signs Date Time Temp Pulse Resp B/P (MAP) Pulse Ox O2 Delivery O2 Flow Rate FiO2 10/26/19 04:00 98.7 100 18 123/88 (100) 99 10/26/19 00:00 99.8 92 12 118/77 (91) 99 10/25/19 21:00 Room Air 10/25/19 20:00 99.5 96 13 119/78 (92) 98 10/25/19 16:00 98.9 89 18 132/81 (98) 98 10/25/19 12:00 98.1 98 18 130/81 (97) 98 10/25/19 09:19 Room Air 10/25/19 08:00 97.3 105 18 139/88 (105) 99 10/25/19 04:00 97.7 100 16 122/85 (97) 97 10/25/19 00:00 97.9 98 17 126/86 (99) 96 10/24/19 21:00 Room Air 10/24/19 20:00 99.0 99 16 123/83 (96) 98 10/24/19 16:00 98.0 78 17 144/94 (111) 96 10/24/19 12:00 97.9 56 17 131/77 (95) 96 10/24/19 08:58 Room Air Intake and Output 10/25/19 10/26/19 19:00 07:00 Intake Total 50 ml 450 ml Output Total 650 ml 600 ml Balance -600 ml -150 ml Intake IV Total 50 ml 450 ml Output Urine Total 650 ml 600 ml Labs Test 10/23/19 15:45 10/24/19 06:24 10/25/19 04:53 10/26/19 06:07 Urine Color Pale yellow Urine Appearance Clear Urine pH 8 (4.5-8.0) Urine Specific Moore 1.010 (1.005-1.035) Urine Protein Negative (NEGATIVE) Urine Glucose (UA) Negative (NEGATIVE) Urine Ketones Negative (NEGATIVE) Urine Blood 5+ (NEGATIVE) Urine Nitrite Negative (NEGATIVE) Urine Bilirubin Negative (NEGATIVE) Urine Urobilinogen Normal MG/DL (0.0-1.0) Urine Leukocyte Esterase 1+ (NEGATIVE) Urine RBC 30-40 /HPF (0 - 2) Urine WBC 2-4 /HPF (0 - 2) Urine Squamous Epithelial Cells Occasional /LPF Urine Bacteria Few /HPF (NONE) White Blood Count 8.6 K/UL (4.8-10.8) 11.2 K/UL (4.8-10.8) 9.9 K/UL (4.8-10.8) Red Blood Count 4.18 M/UL (4.20-5.40) 4.50 M/UL (4.20-5.40) 4.35 M/UL (4.20-5.40) Hemoglobin 10.7 G/DL (12.0-16.0) 12.0 G/DL (12.0-16.0) 11.6 G/DL (12.0-16.0) Hematocrit 34.8 % (37.0-47.0) 36.4 % (37.0-47.0) 34.4 % (37.0-47.0) Mean Corpuscular Volume 83 FL (80-99) 81 FL (80-99) 79 FL (80-99) Mean Corpuscular Hemoglobin 25.6 PG (27.0-31.0) 26.6 PG (27.0-31.0) 26.8 PG (27.0-31.0) Mean Corpuscular Hemoglobin Concent 30.7 G/DL (32.0-36.0) 32.9 G/DL (32.0-36.0) 33.8 G/DL (32.0-36.0) Red Cell Distribution Width 16.6 % (11.6-14.8) 14.3 % (11.6-14.8) 14.8 % (11.6-14.8) Platelet Count 137 K/UL (150-450) 158 K/UL (150-450) 158 K/UL (150-450) Mean Platelet Volume FL (6.5-10.1) 10.9 FL (6.5-10.1) 10.4 FL (6.5-10.1) Neutrophils (%) (Auto) 49.6 % (45.0-75.0) % (45.0-75.0) 63.4 % (45.0-75.0) Lymphocytes (%) (Auto) 41.4 % (20.0-45.0) % (20.0-45.0) 27.8 % (20.0-45.0) Monocytes (%) (Auto) 6.3 % (1.0-10.0) % (1.0-10.0) 6.4 % (1.0-10.0) Eosinophils (%) (Auto) 1.3 % (0.0-3.0) % (0.0-3.0) 1.2 % (0.0-3.0) Basophils (%) (Auto) % (0.0-2.0) % (0.0-2.0) 1.2 % (0.0-2.0) Reticulocyte Count 0.7 % (0.5-2.0) Prothrombin Time 10.7 SEC (9.30-11.50) 10.5 SEC (9.30-11.50) 10.7 SEC (9.30-11.50) Prothromb Time International Ratio 1.0 (0.9-1.1) 1.0 (0.9-1.1) 1.0 (0.9-1.1) Activated Partial Thromboplast Time 28 SEC (23-33) 28 SEC (23-33) 28 SEC (23-33) Sodium Level 145 MMOL/L (136-145) 141 MMOL/L (136-145) 140 MMOL/L (136-145) Potassium Level 3.9 MMOL/L (3.5-5.1) 3.8 MMOL/L (3.5-5.1) 3.3 MMOL/L (3.5-5.1) Chloride Level 110 MMOL/L (98-107) 106 MMOL/L (98-107) 105 MMOL/L (98-107) Carbon Dioxide Level 22 MMOL/L (21-32) 24 MMOL/L (21-32) 23 MMOL/L (21-32) Anion Gap 13 mmol/L (5-15) 11 mmol/L (5-15) 13 mmol/L (5-15) Blood Urea Nitrogen 3 mg/dL (7-18) 5 mg/dL (7-18) 3 mg/dL (7-18) Creatinine 0.7 MG/DL (0.55-1.30) 0.7 MG/DL (0.55-1.30) 0.6 MG/DL (0.55-1.30) Estimat Glomerular Filtration Rate > 60 mL/min (>60) > 60 mL/min (>60) > 60 mL/min (>60) Glucose Level 78 MG/DL (74-106) 95 MG/DL (74-106) 88 MG/DL (74-106) Hemoglobin A1c 5.2 % (4.3-6.0) Uric Acid 5.0 MG/DL (2.6-7.2) Calcium Level 9.4 MG/DL (8.5-10.1) 9.2 MG/DL (8.5-10.1) 9.5 MG/DL (8.5-10.1) Phosphorus Level 3.9 MG/DL (2.5-4.9) Magnesium Level 1.8 MG/DL (1.8-2.4) Iron Level 31 ug/dL (50-175) Total Iron Binding Capacity 219 ug/dL (250-450) Percent Iron Saturation 14 % (15-50) Unsaturated Iron Binding 188 ug/dL (112-346) Ferritin 185 NG/ML (8-388) Total Bilirubin 0.4 MG/DL (0.2-1.0) Gamma Glutamyl Transpeptidase 21 U/L (5-85) Aspartate Amino Transf (AST/SGOT) 23 U/L (15-37) Alanine Aminotransferase (ALT/SGPT) 20 U/L (12-78) Alkaline Phosphatase 32 U/L (46-116) C-Reactive Protein, Quantitative 1.2 mg/dL (0.00-0.90) Total Protein 6.7 G/DL (6.4-8.2) Albumin 3.2 G/DL (3.4-5.0) Globulin 3.5 g/dL Albumin/Globulin Ratio 0.9 (1.0-2.7) Vitamin B12 Level 537 PG/ML (193-986) Folate 3.9 NG/ML (8.6-58.9) Thyroid Stimulating Hormone (TSH) 1.005 uiU/mL (0.358-3.740) Free Thyroxine 1.19 NG/DL (0.76-1.46) Height (Feet): 5 Height (Inches): 9.00 Weight (Pounds): 151 Objective Physical Exam: Vitals: reviewed General Appearance: NAD HEENT: normocephalic, atraumatic Neck: non-tender, normal alignment Respiratory/Chest: normal breath sounds bilaterally Cardiovascular/Chest: normal peripheral pulses, normal rate Abdomen: normal bowel sounds, soft, nontender Extremities: normal range of motion Neuro: not moving much ++ catatonia Chris Gates MD Oct 26, 2019 08:42
[2019-10-26] MEDS: Heparin 5000 units/ml inj SUBQ SCH ×2 (09:00→21:07)
[2019-10-26] MEDS: Docusate 100mg cap ORAL SCH ×2 (09:00→17:39)
[2019-10-26] MEDS: Fluconazole 100mg tab ORAL SCH (09:00)
[2019-10-26] MEDS ORDERED: Propofol 200mg/20ml IV ONE (10:00)
[2019-10-26] MEDS ORDERED: Lidocaine 1% MPF 10mg/ml 5ml ONE (10:00)
[2019-10-26] MEDS ORDERED: LR 1000ml 1,000 ML IVLG SCH (10:11)
[2019-10-26] MEDS ORDERED: DiphenhydrAMINE 50mg/ml Inj IVP PRN (10:15)
[2019-10-26] MEDS ORDERED: cefOXitin 1gm Inj IVP ONE (10:15)
--- NOTE | 2019-10-26 10:15 | Pre-Procedure Note/Attestation ---
Pre-Procedure Note/Attestation Complete Prior to Procedure Planned Procedure: not applicable Procedure Narrative: egd/peg Indications for Procedure Pre-Operative Diagnosis: dysphagia Attestation I attest that I discussed the nature of the procedure; its benefits; risks and complications; and alternatives (and the risks and benefits of such alternatives ), prior to the procedure, with the patient (or the patient's legal quality control representative). I attest that, if there was a reasonable possibility of needing a blood transfusion, the patient (or the patient's legal quality control representative) was given the [facility] standardized written summary, pursuant to the Garrett Lyndsey Blood Safety Act ([place] Health and Safety Code # 1645, as amended). I attest that I re-evaluated the patient just prior to the surgery and that there has been no change in the patient's H&P, except as documented below: Joey Vang MD Oct 26, 2019 10:15
[2019-10-26] MEDS ORDERED: cefOXitin 1gm Inj ONE (10:19)
--- NOTE | 2019-10-26 10:27 | Surgery Progress Note ---
Surgery Progress Note Subjective Additional Comments no acute events comfortable appearing catatonic Objective Last 24 Hour Vital Signs Date Time Temp Pulse Resp B/P (MAP) Pulse Ox O2 Delivery O2 Flow Rate FiO2 10/26/19 04:00 98.7 100 18 123/88 (100) 99 10/26/19 00:00 99.8 92 12 118/77 (91) 99 10/25/19 21:00 Room Air 10/25/19 20:00 99.5 96 13 119/78 (92) 98 10/25/19 16:00 98.9 89 18 132/81 (98) 98 10/25/19 12:00 98.1 98 18 130/81 (97) 98 I&O Intake and Output 10/25/19 10/26/19 18:59 06:59 Intake Total 500 ml Output Total 650 ml 600 ml Balance -650 ml -100 ml Intake IV Total 500 ml Output Urine Total 650 ml 600 ml Dressing: dry Wound: clean Cardiovascular: RSR Respiratory: clear Abdomen: soft, non-tender, present bowel sounds Extremities: no edema, no tenderness, no cyanosis Laboratory Tests Test 10/26/19 06:07 White Blood Count 9.9 K/UL (4.8-10.8) Red Blood Count 4.35 M/UL (4.20-5.40) Hemoglobin 11.6 G/DL (12.0-16.0) L Hematocrit 34.4 % (37.0-47.0) L Mean Corpuscular Volume 79 FL (80-99) L Mean Corpuscular Hemoglobin 26.8 PG (27.0-31.0) L Mean Corpuscular Hemoglobin Concent 33.8 G/DL (32.0-36.0) Red Cell Distribution Width 14.8 % (11.6-14.8) Platelet Count 158 K/UL (150-450) Mean Platelet Volume 10.4 FL (6.5-10.1) H Neutrophils (%) (Auto) 63.4 % (45.0-75.0) Lymphocytes (%) (Auto) 27.8 % (20.0-45.0) Monocytes (%) (Auto) 6.4 % (1.0-10.0) Eosinophils (%) (Auto) 1.2 % (0.0-3.0) Basophils (%) (Auto) 1.2 % (0.0-2.0) Prothrombin Time 10.7 SEC (9.30-11.50) Prothromb Time International Ratio 1.0 (0.9-1.1) Activated Partial Thromboplast Time 28 SEC (23-33) Sodium Level 140 MMOL/L (136-145) Potassium Level 3.3 MMOL/L (3.5-5.1) L Chloride Level 105 MMOL/L (98-107) Carbon Dioxide Level 23 MMOL/L (21-32) Anion Gap 13 mmol/L (5-15) Blood Urea Nitrogen 3 mg/dL (7-18) L Creatinine 0.6 MG/DL (0.55-1.30) Estimat Glomerular Filtration Rate > 60 mL/min (>60) Glucose Level 88 MG/DL (74-106) Calcium Level 9.5 MG/DL (8.5-10.1) Plan Problems: (1) Failure to thrive in adult Assessment & Plan: DAILY ESTIMATED NEEDS: Needs based on FTT/ 65kg 25-30 kcals/kg 2076-8836 total kcals 1-1.2 g protein/kg 65-78 g total protein 25-30 mL/kg 9073-8062 total fluid mLs NUTRITION DIAGNOSIS: Inadequate oral intake R/T decreased appetite, psych issues as evidenced by admitted w/ FTT dx, refusing meals and oral meds, AMS, dx of catatonic schizophrenia. CURRENT DIET:Regular PO DIET RECOMMENDATIONS: Liberalized REGULAR/ texture per DI[employer]OND [employer] or as tolerated ENTERAL NUTRITION RECOMMENDATIONS: Jevity 1.2 @ 60ml/hr x 24 hrs to provide 1440ml, 1728kcal, 79g prot, 1162ml free water * W/ continued refusal of meals and if TF part of POC -> obtain GI access, initiate Jevity 1.2 @ 20ml/hr x 6 hrs -> advance 10ml q 4-6 hrs as tolerated to goal rate -> HOB over 30 degrees -> H20 flush of 120ml q 4 hrs without IVF ADDITIONAL RECOMMENDATIONS: * Psych consult * Monitor PO intake closely: Refusing meals + meds at this time * Ensure Enlive TID w/ meals if pt receptive * TF rec as above if TF part of POC and w/ continued refusing meals * WC eval for wound photos -> MVI x 1 + Rehan 1pkt BID if pt receptive (2) Decubitus skin ulcer Assessment & Plan: Pt presented on admission with DTPI R and L heels. R heel noted to have an area that is maroon fluctuant with surrounding non- blanching erythema.(L)2.4cm x (W)1.6cm. L heel noted to have an area that is purple with red margins ,surrounding non- blanching erythema which is boggy.(L)3.3cm x (W)1.5cm. Skin is dry Sacrum/buttocks without erythema or evidence of skin breakdown noted. No other skin concerns noted . PT identified as high risks for skin breakdown secondary,immobility,rigidity, Incontinence,Dx.of failure to thrive,and presence of pressure injuries. Wound prevention protocols initiated.Moisture Barrier paste applied to Sacrum and covered with Optifoam drsg.Pt positioned on side with pillow.HOB at 30 degrees. Cavilon Skin Barrier applied to both heels and each heel covered with Optifoam drsg. Heels floated off mattress with pillow. Pt placed on an APM/CELIA mattress overlay. Tx.plan: Apply Moisture Barrier Paste to Sacrum.Cover with Optifoam drsg. Change every 3 days and prn. Reposition at least every 2hours or as tolerated. Apply Cavilon Skin Barrier to both heels.Cover each heel with Optifoam drsg. Change every 7 days and prn. Off-load heels with pillow. APM/CELIA Mattress overlay. Rodney Vaca Oct 26, 2019 10:27
[2019-10-26] MEDS ORDERED: NS 500ML IVPB ONE (10:30)
--- NOTE | 2019-10-26 10:44 | Endoscopy Procedure Note ---
Endoscopy Procedure Note General Indication for Procedure: dysphagia Procedures Performed: EGD, PEG Operative Findings/Diagnosis: same Specimen: yes Pt Tolerated Procedure Well: Yes Estimated Blood Loss: none Anesthesia Anesthesiologist: abelino Anesthesia: MAC Inserted Devices Implant(s) used?: No GI Core Measures 50 yrs or older w/o bx or poly: Not Applicable 10yrs. F/U recommended: Not Applicable Joey Vang MD Oct 26, 2019 10:44
[2019-10-26] MEDS ORDERED: cefOXitin Sod 1 GM in NS 55 ML IVPB ONE (10:45)
--- NOTE | 2019-10-26 10:53 | Immediate Post-Op Evaluation ---
Immediate Post-Op Evalulation Immediate Post-Op Evalulation Procedure: EGD with PEG Date of Evaluation: Oct 26, 2019 Time of Evaluation: 10:54 IV Fluids: 300 Blood Products: 0 Estimated Blood Loss: 0 Urinary Output: 0 Blood Pressure Systolic: 121 Blood Pressure Diastolic: 84 Pulse Rate: 100 Respiratory Rate: 16 O2 Sat by Pulse Oximetry: 100 Temperature (Fahrenheit): 98.3 Pain Score (1-10): 0 Nausea: No Vomiting: No Complications 0 Patient Status: awake, reacts, patent, none Hydration Status: adequate Drug: cefoxitin 1g Given Within 1 Hr of Incision: Yes Jenise Andre MD Oct 26, 2019 10:53
--- NOTE | 2019-10-26 10:54 | 48 Hour Post Anesthesia Eval ---
Post Anesthesia Evaluation Procedure: EGD with PEG Date of Evaluation: Oct 26, 2019 Airway: patent Nausea: No Vomiting: No Hydration Status: adequate Cardiopulmonary Status: at baseline Mental Status/LOC: patient returned to baseline Post-Anesthesia Complications: 0 Follow-up care needed: ready to discharge Jenise Andre MD Oct 26, 2019 10:54
--- NOTE | 2019-10-26 11:00 | Progress Note ---
DATE: 10/26/2019 TIME SEEN: Approximate time is 7 a.m. SUBJECTIVE: The patient is calm in bed, slightly confused, not talking much. OBJECTIVE: VITAL SIGNS: Pending. CARDIOVASCULAR: No murmur. LUNGS: Distant and clear. ABDOMEN: Positive bowel sounds. Soft, nontender, nondistended. EXTREMITIES: Show no cyanosis or edema. LABORATORY DATA: Labs are pending. ASSESSMENT: 1. Failure to thrive. 2. Catatonic. 3. Schizophrenia. 4. UTI. 5. Anemia. 6. Heel ulcer. PLAN: 1. Wound care. 2. PT/OT and dietary followup. 3. Discharge to [facility] if cleared by team. Carl Kendall D.O. DR: VIPUL JOB#: [id number] CC:
--- NOTE | 2019-10-26 15:30 | Procedure Note ---
DATE OF PROCEDURE: 10/26/2019 SURGEON: Joey Vang M.D. REFERRING PHYSICIAN: Carl Kendall D.O. PROCEDURE: Upper endoscopy with PEG placement. ANESTHESIA: Per Dr. Hall. INSTRUMENT: Olympus adult flexible upper endoscope. INDICATION: Dysphagia. REASON FOR PROCEDURE: The procedure, risks, benefits, and possible consequences, including hemorrhage, aspiration, perforation and infection, and alternative treatments, were explained to the patient/legal guardian by Dr. Joey Vang and the patient/legal guardian understood and accepted these risks. DESCRIPTION OF PROCEDURE: After informed consent was obtained and the patient was adequately sedated, Olympus upper endoscope was advanced from the mouth into the second portion of the duodenum and retroflexion was performed in the stomach. Then, under endoscopic guidance under sterile condition, a 20-Albanian pull type of G-tube was successfully placed in the epigastric area. The distance from the tip of the tube to skin was about 2 cm in size. The patient tolerated the procedure very well without any complication. SUMMARY OF FINDINGS: Status post PEG placement. RECOMMENDATIONS: 1. Abdominal binder. 2. Elevate the head of the bed at all times. 3. G-tube flush. 4. G-tube care. 5. Start tube feeding later today. 6. The patient received a dose of antibiotics prior to this procedure. I want to thank Dr. Carl Kendall for this kind referral. Joey Vang M.D. DR: DAGNELO JOB#: [id number] CC:
--- NOTE | 2019-10-26 16:58 | Infectious Diseases Prog Note ---
Assessment/Plan Assessment/Plan Assessment: FTT Dehydration catatonic schizophrenia Afebrile Mild leukocytosis,SP Pyuria -u/a wbc 30-40, nit neg, leuk +2, sq cell mod; ucx Neg -repaet u/a wbc 2-4, nit neg, leuk +1, sq cell occasional NH resident HIV sc neg Plan: -Continue to monitor off abx -10/25 SP Ceftriaxone #3 -f/u cx -Monitor CBC/CMP, temperatures -Pscyh f/u Thank you for this consultation. Will continue to follow along with you. Discussed with RN Subjective Allergies: Coded Allergies: No Known Allergies (Unverified , 10/22/19) Subjective afebrile mild leukocytosis resolved Objective Vital Signs Last 24 Hour Vital Signs Date Time Temp Pulse Resp B/P (MAP) Pulse Ox O2 Delivery O2 Flow Rate FiO2 10/26/19 15:47 98.1 98 18 131/76 (94) 98 10/26/19 12:00 98.8 107 19 121/82 (95) 99 10/26/19 11:58 Room Air 10/26/19 11:20 98.0 95 27 110/87 98 Room Air 10/26/19 11:10 94 28 112/78 97 Room Air 10/26/19 11:00 92 26 110/87 99 Nasal Cannula 3 10/26/19 10:55 97 24 114/83 100 Nasal Cannula 3 10/26/19 10:53 100 16 100 10/26/19 10:49 98.3 96 25 113/84 100 Nasal Cannula 3 10/26/19 08:00 98.9 96 18 141/89 (106) 99 10/26/19 04:00 98.7 100 18 123/88 (100) 99 10/26/19 00:00 99.8 92 12 118/77 (91) 99 10/25/19 21:00 Room Air 10/25/19 20:00 99.5 96 13 119/78 (92) 98 Height (Feet): 5 Height (Inches): 9.00 Weight (Pounds): 151 Objective General Appearance: no apparent distress, alert, cachetic, thin Head: normocephalic, atraumatic Eyes: bilateral eye PERRL, bilateral eye EOMI ENT: hearing grossly normal, normal pharynx Neck: full range of motion, supple, no meningismus Respiratory: chest non-tender, lungs clear, normal breath sounds Cardiovascular #1: regular rate, rhythm, no murmur Gastrointestinal: normal bowel sounds, non tender, no mass, no organomegaly, no bruit, non-distended Musculoskeletal: back normal, normal range of motion, gait/station normal Neurologic: grossly normal Psychiatric: other - Patient is catatonic. Not moving much. Laboratory Tests Test 10/26/19 06:07 White Blood Count 9.9 K/UL (4.8-10.8) Red Blood Count 4.35 M/UL (4.20-5.40) Hemoglobin 11.6 G/DL (12.0-16.0) L Hematocrit 34.4 % (37.0-47.0) L Mean Corpuscular Volume 79 FL (80-99) L Mean Corpuscular Hemoglobin 26.8 PG (27.0-31.0) L Mean Corpuscular Hemoglobin Concent 33.8 G/DL (32.0-36.0) Red Cell Distribution Width 14.8 % (11.6-14.8) Platelet Count 158 K/UL (150-450) Mean Platelet Volume 10.4 FL (6.5-10.1) H Neutrophils (%) (Auto) 63.4 % (45.0-75.0) Lymphocytes (%) (Auto) 27.8 % (20.0-45.0) Monocytes (%) (Auto) 6.4 % (1.0-10.0) Eosinophils (%) (Auto) 1.2 % (0.0-3.0) Basophils (%) (Auto) 1.2 % (0.0-2.0) Prothrombin Time 10.7 SEC (9.30-11.50) Prothromb Time International Ratio 1.0 (0.9-1.1) Activated Partial Thromboplast Time 28 SEC (23-33) Sodium Level 140 MMOL/L (136-145) Potassium Level 3.3 MMOL/L (3.5-5.1) L Chloride Level 105 MMOL/L (98-107) Carbon Dioxide Level 23 MMOL/L (21-32) Anion Gap 13 mmol/L (5-15) Blood Urea Nitrogen 3 mg/dL (7-18) L Creatinine 0.6 MG/DL (0.55-1.30) Estimat Glomerular Filtration Rate > 60 mL/min (>60) Glucose Level 88 MG/DL (74-106) Calcium Level 9.5 MG/DL (8.5-10.1) Current Medications Medications (Trade) Dose Ordered Sig/Kirby Route PRN Reason Start Time Stop Time Status Last Admin Dose Admin Acetaminophen (Tylenol) 325 mg Q4H PRN ORAL Mild Pain/Temp > 100.5 10/23/19 06:15 11/22/19 06:14 Dextrose 1,000 ml @ 50 mls/hr Q20H IV 10/23/19 15:30 11/22/19 15:29 10/26/19 03:30 Docusate Sodium (Colace) 100 mg BID ORAL 10/23/19 09:00 11/22/19 08:59 Fluconazole (Diflucan) 100 mg DAILY ORAL 10/23/19 09:00 10/30/19 08:59 Heparin Sodium (Porcine) (Heparin 5000 units/ml) 5,000 units EVERY 12 HOURS SUBQ 10/23/19 09:00 11/22/19 08:59 Megestrol Acetate (Megace) 400 mg BID ORAL 10/23/19 09:00 10/28/19 08:59 Pantoprazole (Protonix) 40 mg EVERY 12 HOURS ORAL 10/23/19 21:00 11/22/19 20:59 Ankita Jama M.D. Oct 26, 2019 16:58
[2019-10-26] MEDS: Megace 400mg/10ml Susp ORAL SCH (17:39)
[2019-10-27] VITALS: BP 109/75
[2019-10-27 04:00] VITALS: BP 132/86
--- NOTE | 2019-10-27 07:04 | General Progress Note ---
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 SNOMED: 872567026 (2) UTI (urinary tract infection) ICD Codes: N39.0 - Urinary tract infection, site not specified SNOMED: 88869451 Qualifiers: Qualified Codes: N30.00 - Acute cystitis without hematuria (3) Decubitus skin ulcer ICD Codes: L89.90 - Pressure ulcer of unspecified site, unspecified stage SNOMED: 232524534 (4) Failure to thrive in adult ICD Codes: R62.7 - Adult failure to thrive SNOMED: 460164804 (5) Dehydration ICD Codes: E86.0 - Dehydration SNOMED: 93673694 Status: stable, unchanged Assessment/Plan: s/p GT placement GTF GT care dc planning per primary team Subjective ROS Limited/Unobtainable: No Allergies: Coded Allergies: No Known Allergies (Unverified , 10/22/19) Objective Last 24 Hour Vital Signs Date Time Temp Pulse Resp B/P (MAP) Pulse Ox O2 Delivery O2 Flow Rate FiO2 10/27/19 04:00 99.2 100 18 132/86 (101) 99 10/27/19 00:00 98.9 94 18 109/75 (86) 97 10/26/19 21:00 Room Air 10/26/19 20:00 98.4 99 18 135/71 (92) 99 10/26/19 15:47 98.1 98 18 131/76 (94) 98 10/26/19 12:00 98.8 107 19 121/82 (95) 99 10/26/19 11:58 Room Air 10/26/19 11:20 98.0 95 27 110/87 98 Room Air 10/26/19 11:10 94 28 112/78 97 Room Air 10/26/19 11:00 92 26 110/87 99 Nasal Cannula 3 10/26/19 10:55 97 24 114/83 100 Nasal Cannula 3 10/26/19 10:53 100 16 100 10/26/19 10:49 98.3 96 25 113/84 100 Nasal Cannula 3 10/26/19 08:00 98.9 96 18 141/89 (106) 99 Intake and Output 10/26/19 10/27/19 19:00 07:00 Intake Total 550 ml 200 ml Output Total 600 ml 500 ml Balance -50 ml -300 ml Intake IV Total 550 ml 200 ml Output Urine Total 600 ml 500 ml Height (Feet): 5 Height (Inches): 9.00 Weight (Pounds): 151 General Appearance: alert EENT: normal ENT inspection Neck: supple Cardiovascular: normal rate Respiratory/Chest: normal breath sounds Abdomen: normal bowel sounds, non tender, soft Extremities: non-tender Joey Vang MD Oct 27, 2019 07:04
[2019-10-27 08:00] VITALS: BP 108/74
[2019-10-27] MEDS: Megace 400mg/10ml Susp ORAL SCH ×2 (09:29→18:03)
[2019-10-27] MEDS: Fluconazole 100mg tab ORAL SCH (09:29)
[2019-10-27] MEDS: Docusate 100mg cap ORAL SCH ×2 (09:29→18:03)
[2019-10-27] MEDS: Heparin 5000 units/ml inj SUBQ SCH ×2 (09:31→20:49)
--- NOTE | 2019-10-27 10:51 | Infectious Diseases Prog Note ---
Assessment/Plan Assessment/Plan Assessment: FTT Dehydration catatonic schizophrenia Afebrile Mild leukocytosis,SP Pyuria -u/a wbc 30-40, nit neg, leuk +2, sq cell mod; ucx Neg -repaet u/a wbc 2-4, nit neg, leuk +1, sq cell occasional NH resident HIV sc neg Plan: - On Fluconazole since admission Home med -Continue to monitor off abx -10/25 SP Ceftriaxone #3 -f/u cx -Monitor CBC/CMP, temperatures -Pscyh f/u Thank you for this consultation. Will continue to follow along with you. Discussed with RN Subjective Allergies: Coded Allergies: No Known Allergies (Unverified , 10/22/19) Subjective Afebrile Leukocytosis resolved Objective Vital Signs Last 24 Hour Vital Signs Date Time Temp Pulse Resp B/P (MAP) Pulse Ox O2 Delivery O2 Flow Rate FiO2 10/27/19 09:00 Room Air 10/27/19 08:00 100.0 99 17 108/74 (85) 99 10/27/19 04:00 99.2 100 18 132/86 (101) 99 10/27/19 00:00 98.9 94 18 109/75 (86) 97 10/26/19 21:00 Room Air 10/26/19 20:00 98.4 99 18 135/71 (92) 99 10/26/19 15:47 98.1 98 18 131/76 (94) 98 10/26/19 12:00 98.8 107 19 121/82 (95) 99 10/26/19 11:58 Room Air 10/26/19 11:20 98.0 95 27 110/87 98 Room Air 10/26/19 11:10 94 28 112/78 97 Room Air 10/26/19 11:00 92 26 110/87 99 Nasal Cannula 3 10/26/19 10:55 97 24 114/83 100 Nasal Cannula 3 10/26/19 10:53 100 16 100 Height (Feet): 5 Height (Inches): 9.00 Weight (Pounds): 151 Objective General Appearance: no apparent distress Head: normocephalic, atraumatic, bilateral eye PERRL, bilateral eye EOMI Respiratory: lungs clear, normal breath sounds Cardiovascular: regular rate, rhythm, no murmur Gastrointestinal: normal bowel sounds, non tender, non-distended Current Medications Medications (Trade) Dose Ordered Sig/Kirby Route PRN Reason Start Time Stop Time Status Last Admin Dose Admin Acetaminophen (Tylenol) 325 mg Q4H PRN ORAL Mild Pain/Temp > 100.5 10/23/19 06:15 11/22/19 06:14 Dextrose 1,000 ml @ 50 mls/hr Q20H IV 10/23/19 15:30 11/22/19 15:29 10/26/19 23:51 Docusate Sodium (Colace) 100 mg BID ORAL 10/23/19 09:00 11/22/19 08:59 10/27/19 09:29 Fluconazole (Diflucan) 100 mg DAILY ORAL 10/23/19 09:00 10/30/19 08:59 10/27/19 09:29 Heparin Sodium (Porcine) (Heparin 5000 units/ml) 5,000 units EVERY 12 HOURS SUBQ 10/23/19 09:00 11/22/19 08:59 10/27/19 09:31 Megestrol Acetate (Megace) 400 mg BID ORAL 10/26/19 18:00 10/31/19 17:59 10/27/19 09:29 Pantoprazole (Protonix) 40 mg EVERY 12 HOURS ORAL 10/23/19 21:00 11/22/19 20:59 10/27/19 09:29 Jairo Lujan MD Oct 27, 2019 10:51
--- NOTE | 2019-10-27 11:51 | Surgery Progress Note ---
Surgery Progress Note Subjective Additional Comments no acute events still catatonic appearing cont current care plan Objective Last 24 Hour Vital Signs Date Time Temp Pulse Resp B/P (MAP) Pulse Ox O2 Delivery O2 Flow Rate FiO2 10/27/19 09:00 Room Air 10/27/19 08:00 100.0 99 17 108/74 (85) 99 10/27/19 04:00 99.2 100 18 132/86 (101) 99 10/27/19 00:00 98.9 94 18 109/75 (86) 97 10/26/19 21:00 Room Air 10/26/19 20:00 98.4 99 18 135/71 (92) 99 10/26/19 15:47 98.1 98 18 131/76 (94) 98 10/26/19 12:00 98.8 107 19 121/82 (95) 99 10/26/19 11:58 Room Air I&O Intake and Output 10/26/19 10/27/19 19:00 07:00 Intake Total 550 ml 200 ml Output Total 600 ml 500 ml Balance -50 ml -300 ml Intake IV Total 550 ml 200 ml Output Urine Total 600 ml 500 ml Dressing: other Wound: other Drains: other Cardiovascular: RSR Respiratory: clear Abdomen: soft, non-tender, present bowel sounds Extremities: no edema, no tenderness, no cyanosis Plan Problems: (1) Failure to thrive in adult Assessment & Plan: DAILY ESTIMATED NEEDS: Needs based on FTT/ 65kg 25-30 kcals/kg 5638-0554 total kcals 1-1.2 g protein/kg 65-78 g total protein 25-30 mL/kg 1842-9255 total fluid mLs NUTRITION DIAGNOSIS: Inadequate oral intake R/T decreased appetite, psych issues as evidenced by admitted w/ FTT dx, refusing meals and oral meds, AMS, dx of catatonic schizophrenia. CURRENT DIET:Regular PO DIET RECOMMENDATIONS: Liberalized REGULAR/ texture per [employer] or as tolerated ENTERAL NUTRITION RECOMMENDATIONS: Jevity 1.2 @ 60ml/hr x 24 hrs to provide 1440ml, 1728kcal, 79g prot, 1162ml free water * W/ continued refusal of meals and if TF part of POC -> obtain GI access, initiate Jevity 1.2 @ 20ml/hr x 6 hrs -> advance 10ml q 4-6 hrs as tolerated to goal rate -> HOB over 30 degrees -> H20 flush of 120ml q 4 hrs without IVF ADDITIONAL RECOMMENDATIONS: * Psych consult * Monitor PO intake closely: Refusing meals + meds at this time * Ensure Enlive TID w/ meals if pt receptive * TF rec as above if TF part of POC and w/ continued refusing meals * WC eval for wound photos -> MVI x 1 + Rehan 1pkt BID if pt receptive (2) Decubitus skin ulcer Assessment & Plan: Pt presented on admission with DTPI R and L heels. R heel noted to have an area that is maroon fluctuant with surrounding non- blanching erythema.(L)2.4cm x (W)1.6cm. L heel noted to have an area that is purple with red margins ,surrounding non- blanching erythema which is boggy.(L)3.3cm x (W)1.5cm. Skin is dry Sacrum/buttocks without erythema or evidence of skin breakdown noted. No other skin concerns noted . PT identified as high risks for skin breakdown secondary,immobility,rigidity, Incontinence,Dx.of failure to thrive,and presence of pressure injuries. Wound prevention protocols initiated.Moisture Barrier paste applied to Sacrum and covered with Optifoam drsg.Pt positioned on side with pillow.HOB at 30 degrees. Cavilon Skin Barrier applied to both heels and each heel covered with Optifoam drsg. Heels floated off mattress with pillow. Pt placed on an APM/CELIA mattress overlay. Tx.plan: Apply Moisture Barrier Paste to Sacrum.Cover with Optifoam drsg. Change every 3 days and prn. Reposition at least every 2hours or as tolerated. Apply Cavilon Skin Barrier to both heels.Cover each heel with Optifoam drsg. Change every 7 days and prn. Off-load heels with pillow. APM/CELIA Mattress overlay. Rodney Vaca Oct 27, 2019 11:51
[2019-10-27 11:59] VITALS: BP 110/76
[2019-10-27 16:00] VITALS: BP 101/76
[2019-10-27 20:00] VITALS: BP 122/62
--- NOTE | 2019-10-27 21:00 | General Progress Note ---
Assessment/Plan Problem List: (1) Dehydration ICD Codes: E86.0 - Dehydration SNOMED: 66238988 (2) Failure to thrive in adult ICD Codes: R62.7 - Adult failure to thrive SNOMED: 488994185 (3) Decubitus skin ulcer ICD Codes: L89.90 - Pressure ulcer of unspecified site, unspecified stage SNOMED: 927164102 (4) UTI (urinary tract infection) ICD Codes: N39.0 - Urinary tract infection, site not specified SNOMED: 49241084 Qualifiers: Qualified Codes: N30.00 - Acute cystitis without hematuria Status: stable, progressing, unchanged Assessment/Plan: dehydration needs fluids decubitus ulcer ftt psychiatric history check lytes Subjective ROS Limited/Unobtainable: Yes Allergies: Coded Allergies: No Known Allergies (Unverified , 10/22/19) Objective Last 24 Hour Vital Signs Date Time Temp Pulse Resp B/P (MAP) Pulse Ox O2 Delivery O2 Flow Rate FiO2 10/27/19 16:00 98.1 87 19 101/76 (84) 98 10/27/19 11:59 98.9 89 18 110/76 (87) 96 10/27/19 09:00 Room Air 10/27/19 08:00 100.0 99 17 108/74 (85) 99 10/27/19 04:00 99.2 100 18 132/86 (101) 99 10/27/19 00:00 98.9 94 18 109/75 (86) 97 10/26/19 21:00 Room Air Intake and Output 10/26/19 10/27/19 19:00 07:00 Intake Total 550 ml 250 ml Output Total 600 ml 500 ml Balance -50 ml -250 ml Intake IV Total 550 ml 250 ml Output Urine Total 600 ml 500 ml Height (Feet): 5 Height (Inches): 9.00 Weight (Pounds): 151 Cardiovascular: normal rate Respiratory/Chest: lungs clear Buffy Gurrola MD Oct 27, 2019 21:00
[2019-10-28] VITALS: BP 121/74
[2019-10-28 04:00] VITALS: BP 125/82
--- NOTE | 2019-10-28 06:26 | General Progress Note ---
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 SNOMED: 575824778 (2) UTI (urinary tract infection) ICD Codes: N39.0 - Urinary tract infection, site not specified SNOMED: 39118074 Qualifiers: Qualified Codes: N30.00 - Acute cystitis without hematuria (3) Decubitus skin ulcer ICD Codes: L89.90 - Pressure ulcer of unspecified site, unspecified stage SNOMED: 681428213 (4) Failure to thrive in adult ICD Codes: R62.7 - Adult failure to thrive SNOMED: 364441640 (5) Dehydration ICD Codes: E86.0 - Dehydration SNOMED: 66024625 Status: stable, progressing, unchanged Assessment/Plan: s/p GT placement GTF GT care dc planning per primary team Subjective ROS Limited/Unobtainable: No Allergies: Coded Allergies: No Known Allergies (Unverified , 10/22/19) Objective Last 24 Hour Vital Signs Date Time Temp Pulse Resp B/P (MAP) Pulse Ox O2 Delivery O2 Flow Rate FiO2 10/28/19 04:00 98.6 86 20 125/82 (96) 95 10/28/19 00:00 98.3 85 20 121/74 (90) 98 10/27/19 21:00 Room Air 10/27/19 20:00 98.4 97 20 122/62 (82) 97 10/27/19 16:00 98.1 87 19 101/76 (84) 98 10/27/19 11:59 98.9 89 18 110/76 (87) 96 10/27/19 09:00 Room Air 10/27/19 08:00 100.0 99 17 108/74 (85) 99 Intake and Output 10/27/19 10/28/19 19:00 07:00 Intake Total 650 ml 1300 ml Output Total 450 ml 250 ml Balance 200 ml 1050 ml Intake Free Water 300 ml IV Total 600 ml 350 ml Tube Feeding 50 ml 650 ml Output Urine Total 450 ml 250 ml Height (Feet): 5 Height (Inches): 9.00 Weight (Pounds): 151 General Appearance: alert EENT: normal ENT inspection Neck: supple Cardiovascular: normal rate Respiratory/Chest: decreased breath sounds Abdomen: normal bowel sounds, non tender, soft Extremities: non-tender Vosoghi,Joey MD Oct 28, 2019 06:26
[2019-10-28 07:33] LABS: BASOPHILS % (AUTO) 0.7 % (0.0-2.0); EOSINOPHILS % (AUTO) 0.6 % (0.0-3.0); HEMATOCRIT 35.2 % (37.0-47.0); HEMOGLOBIN 11.6 G/DL (12.0-16.0); LYMPHOCYTES % (AUTO) 24.5 % (20.0-45.0); MEAN CORPUSCULAR VOLUME 81 FL (80-99); MONOCYTES % (AUTO) 5.7 % (1.0-10.0); NEUTROPHILS % (AUTO) 68.4 % (45.0-75.0); PLATELET COUNT 189 K/UL (150-450); RED BLOOD COUNT 4.34 M/UL (4.20-5.40); RED CELL DISTRIBUTION WIDTH 13.7 % (11.6-14.8); WHITE BLOOD COUNT 10.8 K/UL (4.8-10.8)
[2019-10-28 07:34] LABS: ANION GAP 10 mmol/L (5-15); BLOOD UREA NITROGEN 7 mg/dL (7-18); CALCIUM 9.1 MG/DL (8.5-10.1); CARBON DIOXIDE 25 MMOL/L (21-32); CHLORIDE 105 MMOL/L (98-107); CREATININE 0.7 MG/DL (0.55-1.30); POTASSIUM 3.6 MMOL/L (3.5-5.1); SODIUM 140 MMOL/L (136-145)
[2019-10-28 08:00] VITALS: BP 126/79
[2019-10-28] MEDS: Docusate 100mg cap ORAL SCH ×2 (08:18→17:24)
[2019-10-28] MEDS: Megace 400mg/10ml Susp ORAL SCH ×2 (08:18→17:24)
[2019-10-28] MEDS: Fluconazole 100mg tab ORAL SCH (08:19)
[2019-10-28] MEDS: Heparin 5000 units/ml inj SUBQ SCH ×2 (08:20→20:18)
--- NOTE | 2019-10-28 10:28 | Hematology/Onc Progress Note ---
Assessment/Plan Assessment/Plan Assessment and Recs: # Pancytopenia -- multiple etiologies could be related to underlying liver disease, medication-induced, infection versus viral syndrome versus underlying bone marrow cause --> peripheral smear has been ordered and does not show significant abnormalities --> Medications have been reviewed --> Continue to monitor for improvement, trend cbc --> Hep panel and HIV BOTH NEG --> US abd r/o cirrhosis and hepatosplenomegaly as per PRN order --> reverse isolation if ANC is <2000 --> Give neupogen if ANC <1000 --> Transfuse if hgb <7, with 1 unit prbc --> ferritin 185 # Failure to thrive in adult --> daily weights, pt as needed --> cont megace --> considering peg # UTI (urinary tract infection) --> s/p abx # 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 Greatly appreciate consultation. Subjective Allergies: Coded Allergies: No Known Allergies (Unverified , 10/22/19) Subjective 10/26: nonverbal, flat affect, labs noted, no bleeding 10/28: no acute events, labs reviewed, afebrile, no sob, dc planning Objective Objective Current Medications Medications (Trade) Dose Ordered Sig/Kirby Route PRN Reason Start Time Stop Time Status Last Admin Dose Admin Acetaminophen (Tylenol) 325 mg Q4H PRN ORAL Mild Pain/Temp > 100.5 10/23/19 06:15 11/22/19 06:14 Dextrose 1,000 ml @ 50 mls/hr Q20H IV 10/23/19 15:30 11/22/19 15:29 10/27/19 20:47 Docusate Sodium (Colace) 100 mg BID ORAL 10/23/19 09:00 11/22/19 08:59 10/28/19 08:18 Fluconazole (Diflucan) 100 mg DAILY ORAL 10/23/19 09:00 10/30/19 08:59 10/28/19 08:19 Heparin Sodium (Porcine) (Heparin 5000 units/ml) 5,000 units EVERY 12 HOURS SUBQ 10/23/19 09:00 11/22/19 08:59 10/28/19 08:20 Megestrol Acetate (Megace) 400 mg BID ORAL 10/26/19 18:00 10/31/19 17:59 10/28/19 08:18 Pantoprazole (Protonix) 40 mg EVERY 12 HOURS ORAL 10/23/19 21:00 11/22/19 20:59 10/28/19 08:19 Last 24 Hour Vital Signs Date Time Temp Pulse Resp B/P (MAP) Pulse Ox O2 Delivery O2 Flow Rate FiO2 10/28/19 04:00 98.6 86 20 125/82 (96) 95 10/28/19 00:00 98.3 85 20 121/74 (90) 98 10/27/19 21:00 Room Air 10/27/19 20:00 98.4 97 20 122/62 (82) 97 10/27/19 16:00 98.1 87 19 101/76 (84) 98 10/27/19 11:59 98.9 89 18 110/76 (87) 96 10/27/19 09:00 Room Air 10/27/19 08:00 100.0 99 17 108/74 (85) 99 10/27/19 04:00 99.2 100 18 132/86 (101) 99 10/27/19 00:00 98.9 94 18 109/75 (86) 97 10/26/19 21:00 Room Air 10/26/19 20:00 98.4 99 18 135/71 (92) 99 10/26/19 15:47 98.1 98 18 131/76 (94) 98 10/26/19 12:00 98.8 107 19 121/82 (95) 99 10/26/19 11:58 Room Air 10/26/19 11:20 98.0 95 27 110/87 98 Room Air 10/26/19 11:10 94 28 112/78 97 Room Air 10/26/19 11:00 92 26 110/87 99 Nasal Cannula 3 10/26/19 10:55 97 24 114/83 100 Nasal Cannula 3 10/26/19 10:53 100 16 100 10/26/19 10:49 98.3 96 25 113/84 100 Nasal Cannula 3 Intake and Output 10/27/19 10/28/19 19:00 07:00 Intake Total 650 ml 1300 ml Output Total 450 ml 250 ml Balance 200 ml 1050 ml Intake Free Water 300 ml IV Total 600 ml 350 ml Tube Feeding 50 ml 650 ml Output Urine Total 450 ml 250 ml Labs Test 10/26/19 06:07 10/28/19 07:00 White Blood Count 9.9 K/UL (4.8-10.8) 10.8 K/UL (4.8-10.8) Red Blood Count 4.35 M/UL (4.20-5.40) 4.34 M/UL (4.20-5.40) Hemoglobin 11.6 G/DL (12.0-16.0) 11.6 G/DL (12.0-16.0) Hematocrit 34.4 % (37.0-47.0) 35.2 % (37.0-47.0) Mean Corpuscular Volume 79 FL (80-99) 81 FL (80-99) Mean Corpuscular Hemoglobin 26.8 PG (27.0-31.0) 26.6 PG (27.0-31.0) Mean Corpuscular Hemoglobin Concent 33.8 G/DL (32.0-36.0) 32.8 G/DL (32.0-36.0) Red Cell Distribution Width 14.8 % (11.6-14.8) 13.7 % (11.6-14.8) Platelet Count 158 K/UL (150-450) 189 K/UL (150-450) Mean Platelet Volume 10.4 FL (6.5-10.1) 10.0 FL (6.5-10.1) Neutrophils (%) (Auto) 63.4 % (45.0-75.0) 68.4 % (45.0-75.0) Lymphocytes (%) (Auto) 27.8 % (20.0-45.0) 24.5 % (20.0-45.0) Monocytes (%) (Auto) 6.4 % (1.0-10.0) 5.7 % (1.0-10.0) Eosinophils (%) (Auto) 1.2 % (0.0-3.0) 0.6 % (0.0-3.0) Basophils (%) (Auto) 1.2 % (0.0-2.0) 0.7 % (0.0-2.0) Prothrombin Time 10.7 SEC (9.30-11.50) Prothromb Time International Ratio 1.0 (0.9-1.1) Activated Partial Thromboplast Time 28 SEC (23-33) Sodium Level 140 MMOL/L (136-145) 140 MMOL/L (136-145) Potassium Level 3.3 MMOL/L (3.5-5.1) 3.6 MMOL/L (3.5-5.1) Chloride Level 105 MMOL/L (98-107) 105 MMOL/L (98-107) Carbon Dioxide Level 23 MMOL/L (21-32) 25 MMOL/L (21-32) Anion Gap 13 mmol/L (5-15) 10 mmol/L (5-15) Blood Urea Nitrogen 3 mg/dL (7-18) 7 mg/dL (7-18) Creatinine 0.6 MG/DL (0.55-1.30) 0.7 MG/DL (0.55-1.30) Estimat Glomerular Filtration Rate > 60 mL/min (>60) > 60 mL/min (>60) Glucose Level 88 MG/DL (74-106) 119 MG/DL (74-106) Calcium Level 9.5 MG/DL (8.5-10.1) 9.1 MG/DL (8.5-10.1) Height (Feet): 5 Height (Inches): 9.00 Weight (Pounds): 151 Objective Physical Exam: Vitals: reviewed General Appearance: NAD HEENT: normocephalic, atraumatic Neck: non-tender, normal alignment Respiratory/Chest: normal breath sounds bilaterally Cardiovascular/Chest: normal peripheral pulses, normal rate Abdomen: normal bowel sounds, soft, nontender Extremities: normal range of motion Neuro: not moving much ++ catatonia Chris Gates MD Oct 28, 2019 10:28
--- NOTE | 2019-10-28 11:57 | Surgery Progress Note ---
Surgery Progress Note Subjective Additional Comments no acute events Objective Last 24 Hour Vital Signs Date Time Temp Pulse Resp B/P (MAP) Pulse Ox O2 Delivery O2 Flow Rate FiO2 10/28/19 04:00 98.6 86 20 125/82 (96) 95 10/28/19 00:00 98.3 85 20 121/74 (90) 98 10/27/19 21:00 Room Air 10/27/19 20:00 98.4 97 20 122/62 (82) 97 10/27/19 16:00 98.1 87 19 101/76 (84) 98 10/27/19 11:59 98.9 89 18 110/76 (87) 96 I&O Intake and Output 10/27/19 10/28/19 19:00 07:00 Intake Total 650 ml 1300 ml Output Total 450 ml 250 ml Balance 200 ml 1050 ml Intake Free Water 300 ml IV Total 600 ml 350 ml Tube Feeding 50 ml 650 ml Output Urine Total 450 ml 250 ml Dressing: other Wound: other Drains: other Cardiovascular: RSR Respiratory: clear Abdomen: soft, present bowel sounds Extremities: no edema, no tenderness, no cyanosis Laboratory Tests Test 10/28/19 07:00 White Blood Count 10.8 K/UL (4.8-10.8) Red Blood Count 4.34 M/UL (4.20-5.40) Hemoglobin 11.6 G/DL (12.0-16.0) L Hematocrit 35.2 % (37.0-47.0) L Mean Corpuscular Volume 81 FL (80-99) Mean Corpuscular Hemoglobin 26.6 PG (27.0-31.0) L Mean Corpuscular Hemoglobin Concent 32.8 G/DL (32.0-36.0) Red Cell Distribution Width 13.7 % (11.6-14.8) Platelet Count 189 K/UL (150-450) Mean Platelet Volume 10.0 FL (6.5-10.1) Neutrophils (%) (Auto) 68.4 % (45.0-75.0) Lymphocytes (%) (Auto) 24.5 % (20.0-45.0) Monocytes (%) (Auto) 5.7 % (1.0-10.0) Eosinophils (%) (Auto) 0.6 % (0.0-3.0) Basophils (%) (Auto) 0.7 % (0.0-2.0) Sodium Level 140 MMOL/L (136-145) Potassium Level 3.6 MMOL/L (3.5-5.1) Chloride Level 105 MMOL/L (98-107) Carbon Dioxide Level 25 MMOL/L (21-32) Anion Gap 10 mmol/L (5-15) Blood Urea Nitrogen 7 mg/dL (7-18) Creatinine 0.7 MG/DL (0.55-1.30) Estimat Glomerular Filtration Rate > 60 mL/min (>60) Glucose Level 119 MG/DL (74-106) H Calcium Level 9.1 MG/DL (8.5-10.1) Plan Problems: (1) Failure to thrive in adult Assessment & Plan: DAILY ESTIMATED NEEDS: Needs based on FTT/ 65kg 25-30 kcals/kg 1871-5174 total kcals 1-1.2 g protein/kg 65-78 g total protein 25-30 mL/kg 0459-8497 total fluid mLs NUTRITION DIAGNOSIS: Inadequate oral intake R/T decreased appetite, psych issues as evidenced by admitted w/ FTT dx, refusing meals and oral meds, AMS, dx of catatonic schizophrenia. CURRENT DIET:Regular PO DIET RECOMMENDATIONS: Liberalized REGULAR/ texture per CLINICAL RESEARCH PHYSICIAN or as tolerated ENTERAL NUTRITION RECOMMENDATIONS: Jevity 1.2 @ 60ml/hr x 24 hrs to provide 1440ml, 1728kcal, 79g prot, 1162ml free water * W/ continued refusal of meals and if TF part of POC -> obtain GI access, initiate Jevity 1.2 @ 20ml/hr x 6 hrs -> advance 10ml q 4-6 hrs as tolerated to goal rate -> HOB over 30 degrees -> H20 flush of 120ml q 4 hrs without IVF ADDITIONAL RECOMMENDATIONS: * Psych consult * Monitor PO intake closely: Refusing meals + meds at this time * Ensure Enlive TID w/ meals if pt receptive * TF rec as above if TF part of POC and w/ continued refusing meals * WC eval for wound photos -> MVI x 1 + Rehan 1pkt BID if pt receptive (2) Decubitus skin ulcer Assessment & Plan: Pt presented on admission with DTPI R and L heels. R heel noted to have an area that is maroon fluctuant with surrounding non- blanching erythema.(L)2.4cm x (W)1.6cm. L heel noted to have an area that is purple with red margins ,surrounding non- blanching erythema which is boggy.(L)3.3cm x (W)1.5cm. Skin is dry Sacrum/buttocks without erythema or evidence of skin breakdown noted. No other skin concerns noted . PT identified as high risks for skin breakdown secondary,immobility,rigidity, Incontinence,Dx.of failure to thrive,and presence of pressure injuries. Wound prevention protocols initiated.Moisture Barrier paste applied to Sacrum and covered with Optifoam drsg.Pt positioned on side with pillow.HOB at 30 degrees. Cavilon Skin Barrier applied to both heels and each heel covered with Optifoam drsg. Heels floated off mattress with pillow. Pt placed on an APM/CELIA mattress overlay. Tx.plan: Apply Moisture Barrier Paste to Sacrum.Cover with Optifoam drsg. Change every 3 days and prn. Reposition at least every 2hours or as tolerated. Apply Cavilon Skin Barrier to both heels.Cover each heel with Optifoam drsg. Change every 7 days and prn. Off-load heels with pillow. APM/CELIA Mattress overlay. Rodney Vaca Oct 28, 2019 11:57
[2019-10-28 12:00] VITALS: BP 127/77
[2019-10-28 16:00] VITALS: BP 110/74
[2019-10-28 20:00] VITALS: BP 113/78
--- NOTE | 2019-10-28 22:18 | General Progress Note ---
Assessment/Plan Problem List: (1) Dehydration ICD Codes: E86.0 - Dehydration SNOMED: 96329582 (2) Failure to thrive in adult ICD Codes: R62.7 - Adult failure to thrive SNOMED: 699165297 (3) Decubitus skin ulcer ICD Codes: L89.90 - Pressure ulcer of unspecified site, unspecified stage SNOMED: 826938576 (4) UTI (urinary tract infection) ICD Codes: N39.0 - Urinary tract infection, site not specified SNOMED: 15052467 Qualifiers: Qualified Codes: N30.00 - Acute cystitis without hematuria Status: stable, progressing, unchanged Assessment/Plan: dehydration improving uti afebrile reveiwed chart and labs check lytes Subjective ROS Limited/Unobtainable: Yes Allergies: Coded Allergies: No Known Allergies (Unverified , 10/22/19) Objective Last 24 Hour Vital Signs Date Time Temp Pulse Resp B/P (MAP) Pulse Ox O2 Delivery O2 Flow Rate FiO2 10/28/19 21:00 Room Air 10/28/19 20:00 99.0 98 20 113/78 (90) 94 10/28/19 16:00 99.2 94 17 110/74 (86) 100 10/28/19 12:00 98.8 108 18 127/77 (94) 96 10/28/19 09:00 Room Air 10/28/19 08:00 98.6 90 20 126/79 (95) 95 10/28/19 04:00 98.6 86 20 125/82 (96) 95 10/28/19 00:00 98.3 85 20 121/74 (90) 98 Intake and Output 10/27/19 10/28/19 19:00 07:00 Intake Total 650 ml 1410 ml Output Total 450 ml 250 ml Balance 200 ml 1160 ml Intake Free Water 300 ml IV Total 600 ml 400 ml Tube Feeding 50 ml 710 ml Output Urine Total 450 ml 250 ml Laboratory Tests 10/28/19 07:00: White Blood Count 10.8, Red Blood Count 4.34, Hemoglobin 11.6L, Hematocrit 35.2L , Mean Corpuscular Volume 81, Mean Corpuscular Hemoglobin 26.6L, Mean Corpuscular Hemoglobin Concent 32.8, Red Cell Distribution Width 13.7, Platelet Count 189, Mean Platelet Volume 10.0, Neutrophils (%) (Auto) 68.4, Lymphocytes ( %) (Auto) 24.5, Monocytes (%) (Auto) 5.7, Eosinophils (%) (Auto) 0.6, Basophils (%) (Auto) 0.7, Sodium Level 140, Potassium Level 3.6, Chloride Level 105, Carbon Dioxide Level 25, Anion Gap 10, Blood Urea Nitrogen 7, Creatinine 0.7, Estimat Glomerular Filtration Rate > 60, Glucose Level 119H, Calcium Level 9.1 Height (Feet): 5 Height (Inches): 9.00 Weight (Pounds): 151 Neck: supple Cardiovascular: normal rate Respiratory/Chest: lungs clear Abdomen: soft Buffy Gurrola MD Oct 28, 2019 22:18
[2019-10-29] VITALS: BP 135/72
[2019-10-29 04:00] VITALS: BP 108/71
[2019-10-29 07:21] LABS: BASOPHILS % (AUTO) 0.9 % (0.0-2.0); EOSINOPHILS % (AUTO) 1.3 % (0.0-3.0); HEMATOCRIT 33.9 % (37.0-47.0); HEMOGLOBIN 11.4 G/DL (12.0-16.0); LYMPHOCYTES % (AUTO) 25.3 % (20.0-45.0); MEAN CORPUSCULAR VOLUME 81 FL (80-99); MONOCYTES % (AUTO) 4.9 % (1.0-10.0); NEUTROPHILS % (AUTO) 67.6 % (45.0-75.0); PLATELET COUNT 202 K/UL (150-450); RED BLOOD COUNT 4.19 M/UL (4.20-5.40); RED CELL DISTRIBUTION WIDTH 13.4 % (11.6-14.8); WHITE BLOOD COUNT 10.1 K/UL (4.8-10.8)
[2019-10-29 07:45] LABS: ALANINE AMINOTRANSFERASE 16 U/L (12-78); ALBUMIN 2.8 G/DL (3.4-5.0); ALBUMIN/GLOBULIN RATIO 0.7 (1.0-2.7); ALKALINE PHOSPHATASE 37 U/L (46-116); ANION GAP 9 mmol/L (5-15); ASPARTATE AMINO TRANSFERASE 23 U/L (15-37); BILIRUBIN,TOTAL 0.2 MG/DL (0.2-1.0); BLOOD UREA NITROGEN 9 mg/dL (7-18); CARBON DIOXIDE 26 MMOL/L (21-32); CHLORIDE 107 MMOL/L (98-107); CREATININE 0.7 MG/DL (0.55-1.30); POTASSIUM 3.4 MMOL/L (3.5-5.1); SODIUM 141 MMOL/L (136-145)
--- NOTE | 2019-10-29 07:52 | General Progress Note ---
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 SNOMED: 204376312 (2) UTI (urinary tract infection) ICD Codes: N39.0 - Urinary tract infection, site not specified SNOMED: 72460369 Qualifiers: Qualified Codes: N30.00 - Acute cystitis without hematuria (3) Decubitus skin ulcer ICD Codes: L89.90 - Pressure ulcer of unspecified site, unspecified stage SNOMED: 735668498 (4) Failure to thrive in adult ICD Codes: R62.7 - Adult failure to thrive SNOMED: 072538440 (5) Dehydration ICD Codes: E86.0 - Dehydration SNOMED: 44967852 Status: stable, progressing, unchanged Assessment/Plan: s/p GT placement GTF GT care dc planning per primary team Subjective ROS Limited/Unobtainable: No Allergies: Coded Allergies: No Known Allergies (Unverified , 10/22/19) Objective Last 24 Hour Vital Signs Date Time Temp Pulse Resp B/P (MAP) Pulse Ox O2 Delivery O2 Flow Rate FiO2 10/29/19 04:00 98.6 83 19 108/71 (83) 95 10/29/19 00:00 97.2 68 19 135/72 (93) 96 10/28/19 21:00 Room Air 10/28/19 20:00 99.0 98 20 113/78 (90) 94 10/28/19 16:00 99.2 94 17 110/74 (86) 100 10/28/19 12:00 98.8 108 18 127/77 (94) 96 10/28/19 09:00 Room Air 10/28/19 08:00 98.6 90 20 126/79 (95) 95 Intake and Output 10/28/19 10/29/19 19:00 07:00 Intake Total 1470 ml 890 ml Output Total 400 ml 750 ml Balance 1070 ml 140 ml Intake Free Water 200 ml 230 ml IV Total 550 ml Tube Feeding 720 ml 660 ml Output Urine Total 400 ml 750 ml Laboratory Tests 10/29/19 06:25: White Blood Count 10.1, Red Blood Count 4.19L, Hemoglobin 11.4L, Hematocrit 33.9L, Mean Corpuscular Volume 81, Mean Corpuscular Hemoglobin 27.1, Mean Corpuscular Hemoglobin Concent 33.5, Red Cell Distribution Width 13.4, Platelet Count 202, Mean Platelet Volume 10.3H, Neutrophils (%) (Auto) 67.6, Lymphocytes (%) (Auto) 25.3, Monocytes (%) (Auto) 4.9, Eosinophils (%) (Auto) 1.3, Basophils (%) (Auto) 0.9, Sodium Level 141, Potassium Level 3.4L, Chloride Level 107, Carbon Dioxide Level 26, Anion Gap 9, Blood Urea Nitrogen 9, Creatinine 0.7, Estimat Glomerular Filtration Rate > 60, Glucose Level 128H, Calcium Level 9.0, Total Bilirubin 0.2, Aspartate Amino Transf (AST/SGOT) 23, Alanine Aminotransferase (ALT/SGPT) 16, Alkaline Phosphatase 37L, Total Protein 6.9, Albumin 2.8L, Globulin 4.1, Albumin/Globulin Ratio 0.7L Height (Feet): 5 Height (Inches): 9.00 Weight (Pounds): 151 General Appearance: lethargic EENT: normal ENT inspection Neck: supple Cardiovascular: normal rate Respiratory/Chest: decreased breath sounds Abdomen: normal bowel sounds, non tender, soft Extremities: non-tender Joey Vang MD Oct 29, 2019 07:52
[2019-10-29 08:00] VITALS: BP 116/75
[2019-10-29] MEDS: Docusate 100mg cap ORAL SCH ×2 (08:22→17:02)
[2019-10-29] MEDS: Fluconazole 100mg tab ORAL SCH (08:22)
[2019-10-29] MEDS: Megace 400mg/10ml Susp ORAL SCH ×2 (08:22→17:02)
[2019-10-29] MEDS: Heparin 5000 units/ml inj SUBQ SCH ×2 (08:23→21:45)
--- NOTE | 2019-10-29 09:32 | Hematology/Onc Progress Note ---
Assessment/Plan Assessment/Plan Assessment and Recs: # Pancytopenia -- multiple etiologies could be related to underlying liver disease, medication-induced, infection versus viral syndrome versus underlying bone marrow cause --> peripheral smear has been ordered and does not show significant abnormalities --> Medications have been reviewed --> Continue to monitor for improvement, trend cbc --> Hep panel and HIV BOTH NEG --> US abd r/o cirrhosis and hepatosplenomegaly as per PRN order --> reverse isolation if ANC is <2000 --> Give neupogen if ANC <1000 --> Transfuse if hgb <7, with 1 unit prbc --> ferritin 185 # Failure to thrive in adult --> daily weights, pt as needed --> cont megace --> considering peg # UTI (urinary tract infection) --> s/p abx # 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 Greatly appreciate consultation. Subjective Constitutional: Denies: no symptoms, chills, fever, malaise, weakness, other Gastrointestinal/Abdominal: Denies: no symptoms, abdomen distended, abdominal pain, black stools, tarry stools, blood in stool, constipated, diarrhea, difficulty swallowing, nausea, poor appetite, poor fluid intake, rectal bleeding , vomiting, other Genitourinary: Denies: no symptoms, burning, discharge, frequency, flank pain, hematuria, incontinence, pain, urgency, other Neurologic/Psychiatric: Denies: no symptoms, anxiety, depressed, emotional problems, headache, numbness, paresthesia, pre-existing deficit, seizure, tingling, tremors, weakness, other Endocrine: Denies: no symptoms, excessive sweating, flushing, intolerance to cold, intolerance to heat, increased hunger, increased thirst, increased urine, unexplained weight gain, unexplained weight loss, other Allergies: Coded Allergies: No Known Allergies (Unverified , 10/22/19) Subjective 10/26: nonverbal, flat affect, labs noted, no bleeding 10/28: no acute events, labs reviewed, afebrile, no sob, dc planning 10/29: no major events, no night sweats, no bleeding Objective Objective Current Medications Medications (Trade) Dose Ordered Sig/Kirby Route PRN Reason Start Time Stop Time Status Last Admin Dose Admin Acetaminophen (Tylenol) 325 mg Q4H PRN ORAL Mild Pain/Temp > 100.5 10/23/19 06:15 11/22/19 06:14 Clozapine (Clozaril) 25 mg QHS ORAL 10/29/19 21:00 11/05/19 20:59 Dextrose 1,000 ml @ 50 mls/hr Q20H IV 10/23/19 15:30 11/22/19 15:29 10/28/19 15:21 Docusate Sodium (Colace) 100 mg BID ORAL 10/23/19 09:00 11/22/19 08:59 10/29/19 08:22 Fluconazole (Diflucan) 100 mg DAILY ORAL 10/23/19 09:00 10/30/19 08:59 10/29/19 08:22 Heparin Sodium (Porcine) (Heparin 5000 units/ml) 5,000 units EVERY 12 HOURS SUBQ 10/23/19 09:00 11/22/19 08:59 10/29/19 08:23 Lansoprazole (Prevacid) 30 mg Q12HR GT 10/28/19 21:45 11/27/19 21:44 10/29/19 08:22 Megestrol Acetate (Megace) 400 mg BID ORAL 10/26/19 18:00 10/31/19 17:59 10/29/19 08:22 Last 24 Hour Vital Signs Date Time Temp Pulse Resp B/P (MAP) Pulse Ox O2 Delivery O2 Flow Rate FiO2 10/29/19 09:00 Room Air 10/29/19 08:00 97.8 106 19 116/75 (89) 98 10/29/19 04:00 98.6 83 19 108/71 (83) 95 10/29/19 00:00 97.2 68 19 135/72 (93) 96 10/28/19 21:00 Room Air 10/28/19 20:00 99.0 98 20 113/78 (90) 94 10/28/19 16:00 99.2 94 17 110/74 (86) 100 10/28/19 12:00 98.8 108 18 127/77 (94) 96 10/28/19 09:00 Room Air 10/28/19 08:00 98.6 90 20 126/79 (95) 95 10/28/19 04:00 98.6 86 20 125/82 (96) 95 10/28/19 00:00 98.3 85 20 121/74 (90) 98 10/27/19 21:00 Room Air 10/27/19 20:00 98.4 97 20 122/62 (82) 97 10/27/19 16:00 98.1 87 19 101/76 (84) 98 10/27/19 11:59 98.9 89 18 110/76 (87) 96 Intake and Output 10/28/19 10/29/19 19:00 07:00 Intake Total 1470 ml 890 ml Output Total 400 ml 750 ml Balance 1070 ml 140 ml Intake Free Water 200 ml 230 ml IV Total 550 ml Tube Feeding 720 ml 660 ml Output Urine Total 400 ml 750 ml Labs Test 10/28/19 07:00 10/29/19 06:25 White Blood Count 10.8 K/UL (4.8-10.8) 10.1 K/UL (4.8-10.8) Red Blood Count 4.34 M/UL (4.20-5.40) 4.19 M/UL (4.20-5.40) Hemoglobin 11.6 G/DL (12.0-16.0) 11.4 G/DL (12.0-16.0) Hematocrit 35.2 % (37.0-47.0) 33.9 % (37.0-47.0) Mean Corpuscular Volume 81 FL (80-99) 81 FL (80-99) Mean Corpuscular Hemoglobin 26.6 PG (27.0-31.0) 27.1 PG (27.0-31.0) Mean Corpuscular Hemoglobin Concent 32.8 G/DL (32.0-36.0) 33.5 G/DL (32.0-36.0) Red Cell Distribution Width 13.7 % (11.6-14.8) 13.4 % (11.6-14.8) Platelet Count 189 K/UL (150-450) 202 K/UL (150-450) Mean Platelet Volume 10.0 FL (6.5-10.1) 10.3 FL (6.5-10.1) Neutrophils (%) (Auto) 68.4 % (45.0-75.0) 67.6 % (45.0-75.0) Lymphocytes (%) (Auto) 24.5 % (20.0-45.0) 25.3 % (20.0-45.0) Monocytes (%) (Auto) 5.7 % (1.0-10.0) 4.9 % (1.0-10.0) Eosinophils (%) (Auto) 0.6 % (0.0-3.0) 1.3 % (0.0-3.0) Basophils (%) (Auto) 0.7 % (0.0-2.0) 0.9 % (0.0-2.0) Sodium Level 140 MMOL/L (136-145) 141 MMOL/L (136-145) Potassium Level 3.6 MMOL/L (3.5-5.1) 3.4 MMOL/L (3.5-5.1) Chloride Level 105 MMOL/L (98-107) 107 MMOL/L (98-107) Carbon Dioxide Level 25 MMOL/L (21-32) 26 MMOL/L (21-32) Anion Gap 10 mmol/L (5-15) 9 mmol/L (5-15) Blood Urea Nitrogen 7 mg/dL (7-18) 9 mg/dL (7-18) Creatinine 0.7 MG/DL (0.55-1.30) 0.7 MG/DL (0.55-1.30) Estimat Glomerular Filtration Rate > 60 mL/min (>60) > 60 mL/min (>60) Glucose Level 119 MG/DL (74-106) 128 MG/DL (74-106) Calcium Level 9.1 MG/DL (8.5-10.1) 9.0 MG/DL (8.5-10.1) Total Bilirubin 0.2 MG/DL (0.2-1.0) Aspartate Amino Transf (AST/SGOT) 23 U/L (15-37) Alanine Aminotransferase (ALT/SGPT) 16 U/L (12-78) Alkaline Phosphatase 37 U/L (46-116) Total Protein 6.9 G/DL (6.4-8.2) Albumin 2.8 G/DL (3.4-5.0) Globulin 4.1 g/dL Albumin/Globulin Ratio 0.7 (1.0-2.7) Height (Feet): 5 Height (Inches): 9.00 Weight (Pounds): 151 Objective Physical Exam: Vitals: reviewed General Appearance: NAD HEENT: normocephalic, atraumatic Neck: non-tender, normal alignment Respiratory/Chest: normal breath sounds bilaterally Cardiovascular/Chest: normal peripheral pulses, normal rate Abdomen: normal bowel sounds, soft, nontender ++ gtube Extremities: normal range of motion Neuro: not moving much ++ catatonia Chris Gates MD Oct 29, 2019 09:32
--- NOTE | 2019-10-29 09:36 | General Progress Note ---
Assessment/Plan Problem List: (1) Dehydration ICD Codes: E86.0 - Dehydration SNOMED: 73344341 (2) Failure to thrive in adult ICD Codes: R62.7 - Adult failure to thrive SNOMED: 234879332 (3) Decubitus skin ulcer ICD Codes: L89.90 - Pressure ulcer of unspecified site, unspecified stage SNOMED: 558206165 (4) UTI (urinary tract infection) ICD Codes: N39.0 - Urinary tract infection, site not specified SNOMED: 32560466 Qualifiers: Qualified Codes: N30.00 - Acute cystitis without hematuria (5) Schizophrenic catatonia ICD Codes: F20.2 - Catatonic schizophrenia SNOMED: 721824744 Status: unchanged Assessment/Plan: pt diet abx wound care psyc f/u cbc bmp am psyc transfer Subjective Constitutional: Reports: weakness Allergies: Coded Allergies: No Known Allergies (Unverified , 10/22/19) All Systems: reviewed and negative except above Subjective sleepy calm in bed Objective Last 24 Hour Vital Signs Date Time Temp Pulse Resp B/P (MAP) Pulse Ox O2 Delivery O2 Flow Rate FiO2 10/29/19 09:00 Room Air 10/29/19 08:00 97.8 106 19 116/75 (89) 98 10/29/19 04:00 98.6 83 19 108/71 (83) 95 10/29/19 00:00 97.2 68 19 135/72 (93) 96 10/28/19 21:00 Room Air 10/28/19 20:00 99.0 98 20 113/78 (90) 94 10/28/19 16:00 99.2 94 17 110/74 (86) 100 10/28/19 12:00 98.8 108 18 127/77 (94) 96 Intake and Output 10/28/19 10/29/19 18:59 06:59 Intake Total 1520 ml 950 ml Output Total 400 ml 750 ml Balance 1120 ml 200 ml Intake Free Water 200 ml 230 ml IV Total 600 ml Tube Feeding 720 ml 720 ml Output Urine Total 400 ml 750 ml Laboratory Tests 10/29/19 06:25: White Blood Count 10.1, Red Blood Count 4.19L, Hemoglobin 11.4L, Hematocrit 33.9L, Mean Corpuscular Volume 81, Mean Corpuscular Hemoglobin 27.1, Mean Corpuscular Hemoglobin Concent 33.5, Red Cell Distribution Width 13.4, Platelet Count 202, Mean Platelet Volume 10.3H, Neutrophils (%) (Auto) 67.6, Lymphocytes (%) (Auto) 25.3, Monocytes (%) (Auto) 4.9, Eosinophils (%) (Auto) 1.3, Basophils (%) (Auto) 0.9, Sodium Level 141, Potassium Level 3.4L, Chloride Level 107, Carbon Dioxide Level 26, Anion Gap 9, Blood Urea Nitrogen 9, Creatinine 0.7, Estimat Glomerular Filtration Rate > 60, Glucose Level 128H, Calcium Level 9.0, Total Bilirubin 0.2, Aspartate Amino Transf (AST/SGOT) 23, Alanine Aminotransferase (ALT/SGPT) 16, Alkaline Phosphatase 37L, Total Protein 6.9, Albumin 2.8L, Globulin 4.1, Albumin/Globulin Ratio 0.7L Height (Feet): 5 Height (Inches): 9.00 Weight (Pounds): 151 General Appearance: lethargic EENT: normal ENT inspection Neck: normal alignment Cardiovascular: normal peripheral pulses, normal rate, regular rhythm Respiratory/Chest: chest wall non-tender, lungs clear, normal breath sounds Abdomen: normal bowel sounds, non tender, soft Extremities: normal inspection Edema: no edema noted Arm (L), no edema noted Arm (R), no edema noted Leg (L), no edema noted Leg (R), no edema noted Pedal (L), no edema noted Pedal (R), no edema noted Generalized Neurologic: motor weakness Skin: normal pigmentation, warm/dry Carl Kendall DO Oct 29, 2019 09:36
[2019-10-29 12:08] VITALS: BP 112/75
--- NOTE | 2019-10-29 13:14 | Infectious Diseases Prog Note ---
Assessment/Plan Assessment/Plan Assessment: FTT Dehydration catatonic schizophrenia Afebrile Mild leukocytosis,SP Pyuria -u/a wbc 30-40, nit neg, leuk +2, sq cell mod; ucx Neg -repaet u/a wbc 2-4, nit neg, leuk +1, sq cell occasional NH resident HIV sc neg RPR neg Plan: - On Fluconazole since admission Home med -Continue to monitor off abx -10/25 SP Ceftriaxone #3 -f/u cx -Monitor CBC/CMP, temperatures -Pscyh f/u Thank you for this consultation. Will continue to follow along with you. Discussed with RN Subjective Allergies: Coded Allergies: No Known Allergies (Unverified , 10/22/19) Subjective afebrile>48hrs no leukocytosis Objective Vital Signs Last 24 Hour Vital Signs Date Time Temp Pulse Resp B/P (MAP) Pulse Ox O2 Delivery O2 Flow Rate FiO2 10/29/19 12:08 97.0 97 18 112/75 (87) 98 10/29/19 09:00 Room Air 10/29/19 08:00 97.8 106 19 116/75 (89) 98 10/29/19 04:00 98.6 83 19 108/71 (83) 95 10/29/19 00:00 97.2 68 19 135/72 (93) 96 10/28/19 21:00 Room Air 10/28/19 20:00 99.0 98 20 113/78 (90) 94 10/28/19 16:00 99.2 94 17 110/74 (86) 100 Height (Feet): 5 Height (Inches): 9.00 Weight (Pounds): 151 Objective General Appearance: no apparent distress, alert, cachetic, thin Head: normocephalic, atraumatic Eyes: bilateral eye PERRL, bilateral eye EOMI ENT: hearing grossly normal, normal pharynx Neck: full range of motion, supple, no meningismus Respiratory: chest non-tender, lungs clear, normal breath sounds Cardiovascular #1: regular rate, rhythm, no murmur Gastrointestinal: normal bowel sounds, non tender, no mass, no organomegaly, no bruit, non-distended Musculoskeletal: back normal, normal range of motion, gait/station normal Neurologic: grossly normal Psychiatric: other - Patient is catatonic. Not moving much. Laboratory Tests Test 10/29/19 06:25 White Blood Count 10.1 K/UL (4.8-10.8) Red Blood Count 4.19 M/UL (4.20-5.40) L Hemoglobin 11.4 G/DL (12.0-16.0) L Hematocrit 33.9 % (37.0-47.0) L Mean Corpuscular Volume 81 FL (80-99) Mean Corpuscular Hemoglobin 27.1 PG (27.0-31.0) Mean Corpuscular Hemoglobin Concent 33.5 G/DL (32.0-36.0) Red Cell Distribution Width 13.4 % (11.6-14.8) Platelet Count 202 K/UL (150-450) Mean Platelet Volume 10.3 FL (6.5-10.1) H Neutrophils (%) (Auto) 67.6 % (45.0-75.0) Lymphocytes (%) (Auto) 25.3 % (20.0-45.0) Monocytes (%) (Auto) 4.9 % (1.0-10.0) Eosinophils (%) (Auto) 1.3 % (0.0-3.0) Basophils (%) (Auto) 0.9 % (0.0-2.0) Sodium Level 141 MMOL/L (136-145) Potassium Level 3.4 MMOL/L (3.5-5.1) L Chloride Level 107 MMOL/L (98-107) Carbon Dioxide Level 26 MMOL/L (21-32) Anion Gap 9 mmol/L (5-15) Blood Urea Nitrogen 9 mg/dL (7-18) Creatinine 0.7 MG/DL (0.55-1.30) Estimat Glomerular Filtration Rate > 60 mL/min (>60) Glucose Level 128 MG/DL (74-106) H Calcium Level 9.0 MG/DL (8.5-10.1) Total Bilirubin 0.2 MG/DL (0.2-1.0) Aspartate Amino Transf (AST/SGOT) 23 U/L (15-37) Alanine Aminotransferase (ALT/SGPT) 16 U/L (12-78) Alkaline Phosphatase 37 U/L (46-116) L Total Protein 6.9 G/DL (6.4-8.2) Albumin 2.8 G/DL (3.4-5.0) L Globulin 4.1 g/dL Albumin/Globulin Ratio 0.7 (1.0-2.7) L Current Medications Medications (Trade) Dose Ordered Sig/Kirby Route PRN Reason Start Time Stop Time Status Last Admin Dose Admin Acetaminophen (Tylenol) 325 mg Q4H PRN ORAL Mild Pain/Temp > 100.5 10/23/19 06:15 11/22/19 06:14 Clozapine (Clozaril) 25 mg QHS ORAL 10/29/19 21:00 11/05/19 20:59 Dextrose 1,000 ml @ 50 mls/hr Q20H IV 10/23/19 15:30 11/22/19 15:29 10/29/19 11:22 Docusate Sodium (Colace) 100 mg BID ORAL 10/23/19 09:00 11/22/19 08:59 10/29/19 08:22 Fluconazole (Diflucan) 100 mg DAILY ORAL 10/23/19 09:00 10/30/19 08:59 10/29/19 08:22 Heparin Sodium (Porcine) (Heparin 5000 units/ml) 5,000 units EVERY 12 HOURS SUBQ 10/23/19 09:00 11/22/19 08:59 10/29/19 08:23 Lansoprazole (Prevacid) 30 mg Q12HR GT 10/28/19 21:45 11/27/19 21:44 10/29/19 08:22 Megestrol Acetate (Megace) 400 mg BID ORAL 10/26/19 18:00 10/31/19 17:59 10/29/19 08:22 Ankita Jama M.D. Oct 29, 2019 13:14
--- NOTE | 2019-10-29 14:26 | Surgery Progress Note ---
Surgery Progress Note Subjective Additional Comments no acute events exam stable not following Objective Last 24 Hour Vital Signs Date Time Temp Pulse Resp B/P (MAP) Pulse Ox O2 Delivery O2 Flow Rate FiO2 10/29/19 12:08 97.0 97 18 112/75 (87) 98 10/29/19 09:00 Room Air 10/29/19 08:00 97.8 106 19 116/75 (89) 98 10/29/19 04:00 98.6 83 19 108/71 (83) 95 10/29/19 00:00 97.2 68 19 135/72 (93) 96 10/28/19 21:00 Room Air 10/28/19 20:00 99.0 98 20 113/78 (90) 94 10/28/19 16:00 99.2 94 17 110/74 (86) 100 I&O Intake and Output 10/28/19 10/29/19 19:00 07:00 Intake Total 1470 ml 1000 ml Output Total 400 ml 750 ml Balance 1070 ml 250 ml Intake Free Water 200 ml 230 ml IV Total 550 ml 50 ml Tube Feeding 720 ml 720 ml Output Urine Total 400 ml 750 ml Dressing: other Wound: other Drains: other Cardiovascular: RSR Respiratory: clear Abdomen: soft, present bowel sounds, non-distended Extremities: no cyanosis Laboratory Tests Test 10/29/19 06:25 White Blood Count 10.1 K/UL (4.8-10.8) Red Blood Count 4.19 M/UL (4.20-5.40) L Hemoglobin 11.4 G/DL (12.0-16.0) L Hematocrit 33.9 % (37.0-47.0) L Mean Corpuscular Volume 81 FL (80-99) Mean Corpuscular Hemoglobin 27.1 PG (27.0-31.0) Mean Corpuscular Hemoglobin Concent 33.5 G/DL (32.0-36.0) Red Cell Distribution Width 13.4 % (11.6-14.8) Platelet Count 202 K/UL (150-450) Mean Platelet Volume 10.3 FL (6.5-10.1) H Neutrophils (%) (Auto) 67.6 % (45.0-75.0) Lymphocytes (%) (Auto) 25.3 % (20.0-45.0) Monocytes (%) (Auto) 4.9 % (1.0-10.0) Eosinophils (%) (Auto) 1.3 % (0.0-3.0) Basophils (%) (Auto) 0.9 % (0.0-2.0) Sodium Level 141 MMOL/L (136-145) Potassium Level 3.4 MMOL/L (3.5-5.1) L Chloride Level 107 MMOL/L (98-107) Carbon Dioxide Level 26 MMOL/L (21-32) Anion Gap 9 mmol/L (5-15) Blood Urea Nitrogen 9 mg/dL (7-18) Creatinine 0.7 MG/DL (0.55-1.30) Estimat Glomerular Filtration Rate > 60 mL/min (>60) Glucose Level 128 MG/DL (74-106) H Calcium Level 9.0 MG/DL (8.5-10.1) Total Bilirubin 0.2 MG/DL (0.2-1.0) Aspartate Amino Transf (AST/SGOT) 23 U/L (15-37) Alanine Aminotransferase (ALT/SGPT) 16 U/L (12-78) Alkaline Phosphatase 37 U/L (46-116) L Total Protein 6.9 G/DL (6.4-8.2) Albumin 2.8 G/DL (3.4-5.0) L Globulin 4.1 g/dL Albumin/Globulin Ratio 0.7 (1.0-2.7) L Plan Problems: (1) Failure to thrive in adult Assessment & Plan: DAILY ESTIMATED NEEDS: Needs based on FTT/ 65kg 25-30 kcals/kg 1120-9866 total kcals 1-1.2 g protein/kg 65-78 g total protein 25-30 mL/kg 1981-0603 total fluid mLs NUTRITION DIAGNOSIS: Inadequate oral intake R/T decreased appetite, psych issues as evidenced by admitted w/ FTT dx, refusing meals and oral meds, AMS, dx of catatonic schizophrenia. CURRENT DIET:Regular PO DIET RECOMMENDATIONS: Liberalized REGULAR/ texture per [employer] or as tolerated ENTERAL NUTRITION RECOMMENDATIONS: Jevity 1.2 @ 60ml/hr x 24 hrs to provide 1440ml, 1728kcal, 79g prot, 1162ml free water * W/ continued refusal of meals and if TF part of POC -> obtain GI access, initiate Jevity 1.2 @ 20ml/hr x 6 hrs -> advance 10ml q 4-6 hrs as tolerated to goal rate -> HOB over 30 degrees -> H20 flush of 120ml q 4 hrs without IVF ADDITIONAL RECOMMENDATIONS: * Psych consult * Monitor PO intake closely: Refusing meals + meds at this time * Ensure Enlive TID w/ meals if pt receptive * TF rec as above if TF part of POC and w/ continued refusing meals * WC eval for wound photos -> MVI x 1 + Rehan 1pkt BID if pt receptive (2) Decubitus skin ulcer Assessment & Plan: Pt presented on admission with DTPI R and L heels. R heel noted to have an area that is maroon fluctuant with surrounding non- blanching erythema.(L)2.4cm x (W)1.6cm. L heel noted to have an area that is purple with red margins ,surrounding non- blanching erythema which is boggy.(L)3.3cm x (W)1.5cm. Skin is dry Sacrum/buttocks without erythema or evidence of skin breakdown noted. No other skin concerns noted . PT identified as high risks for skin breakdown secondary,immobility,rigidity, Incontinence,Dx.of failure to thrive,and presence of pressure injuries. Wound prevention protocols initiated.Moisture Barrier paste applied to Sacrum and covered with Optifoam drsg.Pt positioned on side with pillow.HOB at 30 degrees. Cavilon Skin Barrier applied to both heels and each heel covered with Optifoam drsg. Heels floated off mattress with pillow. Pt placed on an APM/CELIA mattress overlay. Tx.plan: Apply Moisture Barrier Paste to Sacrum.Cover with Optifoam drsg. Change every 3 days and prn. Reposition at least every 2hours or as tolerated. Apply Cavilon Skin Barrier to both heels.Cover each heel with Optifoam drsg. Change every 7 days and prn. Off-load heels with pillow. APM/CELIA Mattress overlay. Rodney Vaca Oct 29, 2019 14:26
[2019-10-29 16:00] VITALS: BP 111/79
[2019-10-29 20:00] VITALS: BP 113/76
[2019-10-30] VITALS: BP 112/77
[2019-10-30 04:00] VITALS: BP 127/86
[2019-10-30 06:46] LABS: BASOPHILS % (AUTO) 0.9 % (0.0-2.0); EOSINOPHILS % (AUTO) 1.8 % (0.0-3.0); HEMATOCRIT 34.9 % (37.0-47.0); HEMOGLOBIN 11.4 G/DL (12.0-16.0); LYMPHOCYTES % (AUTO) 30.9 % (20.0-45.0); MEAN CORPUSCULAR VOLUME 81 FL (80-99); MONOCYTES % (AUTO) 5.5 % (1.0-10.0); PLATELET COUNT 221 K/UL (150-450); RED BLOOD COUNT 4.28 M/UL (4.20-5.40); RED CELL DISTRIBUTION WIDTH 13.7 % (11.6-14.8); WHITE BLOOD COUNT 9.2 K/UL (4.8-10.8)
[2019-10-30 07:39] LABS: ALANINE AMINOTRANSFERASE 13 U/L (12-78); ALBUMIN 2.8 G/DL (3.4-5.0); ALBUMIN/GLOBULIN RATIO 0.7 (1.0-2.7); ALKALINE PHOSPHATASE 35 U/L (46-116); ANION GAP 9 mmol/L (5-15); ASPARTATE AMINO TRANSFERASE 18 U/L (15-37); BILIRUBIN,TOTAL 0.2 MG/DL (0.2-1.0); BLOOD UREA NITROGEN 10 mg/dL (7-18); CALCIUM 9.1 MG/DL (8.5-10.1); CARBON DIOXIDE 25 MMOL/L (21-32); CHLORIDE 107 MMOL/L (98-107); CREATININE 0.7 MG/DL (0.55-1.30); SODIUM 141 MMOL/L (136-145)
[2019-10-30] MEDS: Fluconazole 100mg tab ORAL SCH (08:00)
[2019-10-30] MEDS: Megace 400mg/10ml Susp ORAL SCH ×2 (08:00→17:15)
[2019-10-30] MEDS: Docusate 100mg cap ORAL SCH ×2 (08:00→17:15)
[2019-10-30] MEDS: Heparin 5000 units/ml inj SUBQ SCH ×2 (08:01→21:16)
[2019-10-30 08:11] VITALS: BP 123/79
--- NOTE | 2019-10-30 08:31 | Consultation ---
DATE OF CONSULTATION: 10/29/2019 NOTE: "VERY POOR AUDIO QUALITY" PSYCHIATRIC CONSULTATION CONSULTING PHYSICIAN: Natalie Martin M.D. REFERRING PHYSICIAN: Carl Kendall D.O. HISTORY OF PRESENT ILLNESS: This patient is a 48-year-old female patient with history of dehydration, failure to thrive, decubitus skin ulcer, and urinary tract infection, but she came in for the above reasons. She came in lethargic, confused, and disorganized. She has significant decline in cognition below her baseline. She appeared to be minimally responsive on interview. She just had a blank stare on the interview. respond logically to any of my questioning. MEDICAL HISTORY: She has history of again urinary tract infection and dehydration. Please see Internal Medicine note for further details. ALLERGIES: No known drug allergies. PSYCHOTROPIC MEDICATIONS ON ADMISSION: Per chart, she was taking Clozaril, but she that on interview today. PAIN ASSESSMENT: 12/10 pain. SUBSTANCE ABUSE HISTORY: No history of drug or alcohol use. FAMILY PSYCHIATRIC HISTORY: Denies. DEVELOPMENTAL PROBLEMS: Denies. SOCIAL HISTORY: The patient lives at [facility]. Financially supported by [email or web address] and Medicare. PSYCHIATRIC HISTORY: Paranoid schizophrenia. Long-term psychiatric patient. STRENGTHS: She is motivated to get better and has place to live. WEAKNESSES: She is impulsive support system. MENTAL STATUS EXAMINATION: This is a 48-year-old female patient. Appearance is disheveled. Attitude, irritable and agitated. Affect is flat. Intellect poor because she does not know current events and does not know the last four presidents. Mood, depressed and anxious. Motor activity, psychomotor agitation. Attention span is poor because she cannot do serial sevens or spell world backwards. Orientation x2. She is oriented to person and place, not time or situation. Speech is nonsensical. Thought process, disorganized and illogical. Thought content, she has some paranoid delusions. Perception is poor due to paranoid delusions. Abstract reasoning is poor because she does not understand proverbs, only has concrete thinking. Insight is poor because she does not she cannot contract for safety as far as suicidal or homicidal ideation. Short-term memory, 0/3 of memory. Long-term memory is poor because she does not recall long-term events in her life. DIAGNOSES: 1. Paranoid schizophrenia with acute exacerbation. 2. No secondary. 3. Medical - urinary tract infection, dehydration, failure to thrive, decubitus skin ulcers. 4. Psychosocial stressors, financial. 5. Functional impairment is severe. PLAN: My plan for this patient is I am going to restart her on Clozaril. Per chart, she takes Clozaril, but she has been off of it throughout her hospital stay, so we will start her at a lower dose. We will start this patient on a dose of Clozaril 25 mg nightly per G-tube and encourage her to interact appropriately with staff and other patients. Clozaril 25 mg nightly and . Provided with 20 minutes of insight-oriented psychotherapy to help with insight into her psychiatric conditions as she has more interaction with improvement on the unit. Twenty minutes of insight-oriented psychotherapy. Chart reviewed. Discussed with staff. Seen and assessed at bedside. I would like to thank, Dr. Carl Kendall, for this interesting consultation. Natalie Maritn M.D. DR: ERIN JOB#: [id number] CC:
--- NOTE | 2019-10-30 08:55 | General Progress Note ---
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 SNOMED: 722405694 (2) UTI (urinary tract infection) ICD Codes: N39.0 - Urinary tract infection, site not specified SNOMED: 02965318 Qualifiers: Qualified Codes: N30.00 - Acute cystitis without hematuria (3) Decubitus skin ulcer ICD Codes: L89.90 - Pressure ulcer of unspecified site, unspecified stage SNOMED: 935724385 (4) Failure to thrive in adult ICD Codes: R62.7 - Adult failure to thrive SNOMED: 851354256 (5) Dehydration ICD Codes: E86.0 - Dehydration SNOMED: 17874906 Status: unchanged Assessment/Plan: s/p GT placement GTF GT care dc planning per primary team Subjective ROS Limited/Unobtainable: No Allergies: Coded Allergies: No Known Allergies (Unverified , 10/22/19) Objective Last 24 Hour Vital Signs Date Time Temp Pulse Resp B/P (MAP) Pulse Ox O2 Delivery O2 Flow Rate FiO2 10/30/19 08:11 98.8 99 17 123/79 (94) 98 10/30/19 04:00 98.9 100 16 127/86 (100) 98 10/30/19 00:00 97.8 103 16 112/77 (89) 98 10/29/19 21:00 Room Air 10/29/19 20:00 98.1 93 12 113/76 (88) 98 10/29/19 16:00 97.5 69 18 111/79 (90) 97 10/29/19 12:08 97.0 97 18 112/75 (87) 98 10/29/19 09:00 Room Air Intake and Output 10/29/19 10/30/19 19:00 07:00 Intake Total 1520 ml 1470 ml Balance 1520 ml 1470 ml Intake Free Water 300 ml 200 ml IV Total 500 ml 550 ml Tube Feeding 720 ml 720 ml Laboratory Tests 10/30/19 05:50: White Blood Count 9.2, Red Blood Count 4.28, Hemoglobin 11.4L, Hematocrit 34.9L , Mean Corpuscular Volume 81, Mean Corpuscular Hemoglobin 26.6L, Mean Corpuscular Hemoglobin Concent 32.6, Red Cell Distribution Width 13.7, Platelet Count 221, Mean Platelet Volume 10.1, Neutrophils (%) (Auto) 61.0, Lymphocytes ( %) (Auto) 30.9, Monocytes (%) (Auto) 5.5, Eosinophils (%) (Auto) 1.8, Basophils (%) (Auto) 0.9, Sodium Level 141, Potassium Level 4.0, Chloride Level 107, Carbon Dioxide Level 25, Anion Gap 9, Blood Urea Nitrogen 10, Creatinine 0.7, Estimat Glomerular Filtration Rate > 60, Glucose Level 123H, Calcium Level 9.1, Total Bilirubin 0.2, Aspartate Amino Transf (AST/SGOT) 18, Alanine Aminotransferase (ALT/SGPT) 13, Alkaline Phosphatase 35L, Total Protein 7.1, Albumin 2.8L, Globulin 4.3, Albumin/Globulin Ratio 0.7L Height (Feet): 5 Height (Inches): 9.00 Weight (Pounds): 151 General Appearance: no apparent distress EENT: normal ENT inspection Neck: supple Cardiovascular: normal rate Respiratory/Chest: decreased breath sounds Abdomen: normal bowel sounds, non tender, soft Extremities: non-tender Joey Vang MD Oct 30, 2019 08:54
--- NOTE | 2019-10-30 11:57 | Infectious Diseases Prog Note ---
Assessment/Plan Assessment/Plan Assessment: FTT Dehydration catatonic schizophrenia Afebrile Mild leukocytosis,SP Pyuria -u/a wbc 30-40, nit neg, leuk +2, sq cell mod; ucx Neg -repaet u/a wbc 2-4, nit neg, leuk +1, sq cell occasional NH resident HIV sc neg RPR neg Plan: - On Fluconazole since admission Home med -Continue to monitor off abx -10/25 SP Ceftriaxone #3 -f/u cx -Monitor CBC/CMP, temperatures -Pscyh f/u Thank you for this consultation. Will continue to follow along with you. Discussed with RN Subjective Allergies: Coded Allergies: No Known Allergies (Unverified , 10/22/19) Subjective afebrile>72hrs no leukocytosis off abx Objective Vital Signs Last 24 Hour Vital Signs Date Time Temp Pulse Resp B/P (MAP) Pulse Ox O2 Delivery O2 Flow Rate FiO2 10/30/19 08:45 Room Air 10/30/19 08:11 98.8 99 17 123/79 (94) 98 10/30/19 04:00 98.9 100 16 127/86 (100) 98 10/30/19 00:00 97.8 103 16 112/77 (89) 98 10/29/19 21:00 Room Air 10/29/19 20:00 98.1 93 12 113/76 (88) 98 10/29/19 16:00 97.5 69 18 111/79 (90) 97 10/29/19 12:08 97.0 97 18 112/75 (87) 98 Height (Feet): 5 Height (Inches): 9.00 Weight (Pounds): 151 Objective General Appearance: no apparent distress, alert, cachetic, thin Head: normocephalic, atraumatic Eyes: bilateral eye PERRL, bilateral eye EOMI ENT: hearing grossly normal, normal pharynx Neck: full range of motion, supple, no meningismus Respiratory: chest non-tender, lungs clear, normal breath sounds Cardiovascular #1: regular rate, rhythm, no murmur Gastrointestinal: normal bowel sounds, non tender, no mass, no organomegaly, no bruit, non-distended Musculoskeletal: back normal, normal range of motion, gait/station normal Neurologic: grossly normal Psychiatric: other - Patient is catatonic. Not moving much. Laboratory Tests Test 1/28/20 05:50 White Blood Count 9.2 K/UL (4.8-10.8) Red Blood Count 4.28 M/UL (4.20-5.40) Hemoglobin 11.4 G/DL (12.0-16.0) L Hematocrit 34.9 % (37.0-47.0) L Mean Corpuscular Volume 81 FL (80-99) Mean Corpuscular Hemoglobin 26.6 PG (27.0-31.0) L Mean Corpuscular Hemoglobin Concent 32.6 G/DL (32.0-36.0) Red Cell Distribution Width 13.7 % (11.6-14.8) Platelet Count 221 K/UL (150-450) Mean Platelet Volume 10.1 FL (6.5-10.1) Neutrophils (%) (Auto) 61.0 % (45.0-75.0) Lymphocytes (%) (Auto) 30.9 % (20.0-45.0) Monocytes (%) (Auto) 5.5 % (1.0-10.0) Eosinophils (%) (Auto) 1.8 % (0.0-3.0) Basophils (%) (Auto) 0.9 % (0.0-2.0) Sodium Level 141 MMOL/L (136-145) Potassium Level 4.0 MMOL/L (3.5-5.1) Chloride Level 107 MMOL/L (98-107) Carbon Dioxide Level 25 MMOL/L (21-32) Anion Gap 9 mmol/L (5-15) Blood Urea Nitrogen 10 mg/dL (7-18) Creatinine 0.7 MG/DL (0.55-1.30) Estimat Glomerular Filtration Rate > 60 mL/min (>60) Glucose Level 123 MG/DL (74-106) H Calcium Level 9.1 MG/DL (8.5-10.1) Total Bilirubin 0.2 MG/DL (0.2-1.0) Aspartate Amino Transf (AST/SGOT) 18 U/L (15-37) Alanine Aminotransferase (ALT/SGPT) 13 U/L (12-78) Alkaline Phosphatase 35 U/L (46-116) L Total Protein 7.1 G/DL (6.4-8.2) Albumin 2.8 G/DL (3.4-5.0) L Globulin 4.3 g/dL Albumin/Globulin Ratio 0.7 (1.0-2.7) L Current Medications Medications (Trade) Dose Ordered Sig/Kirby Route PRN Reason Start Time Stop Time Status Last Admin Dose Admin Acetaminophen (Tylenol) 325 mg Q4H PRN ORAL Mild Pain/Temp > 100.5 10/23/19 06:15 11/22/19 06:14 Clozapine (Clozaril) 25 mg QHS ORAL 10/29/19 21:00 11/05/19 20:59 10/29/19 21:43 Dextrose 1,000 ml @ 50 mls/hr Q20H IV 10/23/19 15:30 11/22/19 15:29 10/30/19 05:56 Docusate Sodium (Colace) 100 mg BID ORAL 10/23/19 09:00 11/22/19 08:59 10/30/19 08:00 Fluconazole (Diflucan) 100 mg DAILY ORAL 10/23/19 09:00 11/05/19 08:59 10/30/19 08:00 Heparin Sodium (Porcine) (Heparin 5000 units/ml) 5,000 units EVERY 12 HOURS SUBQ 10/23/19 09:00 11/22/19 08:59 10/30/19 08:01 Lansoprazole (Prevacid) 30 mg Q12HR GT 10/28/19 21:45 11/27/19 21:44 10/30/19 08:00 Megestrol Acetate (Megace) 400 mg BID ORAL 10/26/19 18:00 10/31/19 17:59 10/30/19 08:00 Ankita Jama M.D. Oct 30, 2019 11:57
[2019-10-30 12:18] VITALS: BP 138/76
--- NOTE | 2019-10-30 12:39 | General Progress Note ---
Assessment/Plan Problem List: (1) Dehydration ICD Codes: E86.0 - Dehydration SNOMED: 44279206 (2) Failure to thrive in adult ICD Codes: R62.7 - Adult failure to thrive SNOMED: 562376066 (3) Decubitus skin ulcer ICD Codes: L89.90 - Pressure ulcer of unspecified site, unspecified stage SNOMED: 668028496 (4) UTI (urinary tract infection) ICD Codes: N39.0 - Urinary tract infection, site not specified SNOMED: 28517648 Qualifiers: Qualified Codes: N30.00 - Acute cystitis without hematuria (5) Schizophrenic catatonia ICD Codes: F20.2 - Catatonic schizophrenia SNOMED: 116305125 Status: unchanged Assessment/Plan: pt diet abx wound care psyc f/u dc if clear Subjective Constitutional: Reports: weakness Allergies: Coded Allergies: No Known Allergies (Unverified , 10/22/19) All Systems: reviewed and negative except above Subjective sleepy calm in bed Objective Last 24 Hour Vital Signs Date Time Temp Pulse Resp B/P (MAP) Pulse Ox O2 Delivery O2 Flow Rate FiO2 10/30/19 12:18 98.6 90 19 138/76 (96) 98 10/30/19 08:45 Room Air 10/30/19 08:11 98.8 99 17 123/79 (94) 98 10/30/19 04:00 98.9 100 16 127/86 (100) 98 10/30/19 00:00 97.8 103 16 112/77 (89) 98 10/29/19 21:00 Room Air 10/29/19 20:00 98.1 93 12 113/76 (88) 98 10/29/19 16:00 97.5 69 18 111/79 (90) 97 Intake and Output 10/29/19 10/30/19 19:00 07:00 Intake Total 1520 ml 1470 ml Balance 1520 ml 1470 ml Intake Free Water 300 ml 200 ml IV Total 500 ml 550 ml Tube Feeding 720 ml 720 ml Laboratory Tests 10/30/19 05:50: White Blood Count 9.2, Red Blood Count 4.28, Hemoglobin 11.4L, Hematocrit 34.9L , Mean Corpuscular Volume 81, Mean Corpuscular Hemoglobin 26.6L, Mean Corpuscular Hemoglobin Concent 32.6, Red Cell Distribution Width 13.7, Platelet Count 221, Mean Platelet Volume 10.1, Neutrophils (%) (Auto) 61.0, Lymphocytes ( %) (Auto) 30.9, Monocytes (%) (Auto) 5.5, Eosinophils (%) (Auto) 1.8, Basophils (%) (Auto) 0.9, Sodium Level 141, Potassium Level 4.0, Chloride Level 107, Carbon Dioxide Level 25, Anion Gap 9, Blood Urea Nitrogen 10, Creatinine 0.7, Estimat Glomerular Filtration Rate > 60, Glucose Level 123H, Calcium Level 9.1, Total Bilirubin 0.2, Aspartate Amino Transf (AST/SGOT) 18, Alanine Aminotransferase (ALT/SGPT) 13, Alkaline Phosphatase 35L, Total Protein 7.1, Albumin 2.8L, Globulin 4.3, Albumin/Globulin Ratio 0.7L Height (Feet): 5 Height (Inches): 9.00 Weight (Pounds): 151 General Appearance: lethargic EENT: normal ENT inspection Neck: normal alignment Cardiovascular: normal peripheral pulses, normal rate, regular rhythm Respiratory/Chest: chest wall non-tender, lungs clear, normal breath sounds Abdomen: normal bowel sounds, non tender, soft Extremities: normal inspection Edema: no edema noted Arm (L), no edema noted Arm (R), no edema noted Leg (L), no edema noted Leg (R), no edema noted Pedal (L), no edema noted Pedal (R), no edema noted Generalized Neurologic: motor weakness Skin: normal pigmentation, warm/dry Carl Kendall DO Oct 30, 2019 12:39
--- NOTE | 2019-10-30 13:42 | Surgery Progress Note ---
Surgery Progress Note Subjective Additional Comments stable comfortable appearing Objective Last 24 Hour Vital Signs Date Time Temp Pulse Resp B/P (MAP) Pulse Ox O2 Delivery O2 Flow Rate FiO2 10/30/19 12:18 98.6 90 19 138/76 (96) 98 10/30/19 08:45 Room Air 10/30/19 08:11 98.8 99 17 123/79 (94) 98 10/30/19 04:00 98.9 100 16 127/86 (100) 98 10/30/19 00:00 97.8 103 16 112/77 (89) 98 10/29/19 21:00 Room Air 10/29/19 20:00 98.1 93 12 113/76 (88) 98 10/29/19 16:00 97.5 69 18 111/79 (90) 97 I&O Intake and Output 10/29/19 10/30/19 19:00 07:00 Intake Total 1520 ml 1470 ml Balance 1520 ml 1470 ml Intake Free Water 300 ml 200 ml IV Total 500 ml 550 ml Tube Feeding 720 ml 720 ml Dressing: other Wound: other Drains: other Cardiovascular: RSR Respiratory: decreased breath sounds Abdomen: soft, present bowel sounds Extremities: no cyanosis, other Laboratory Tests Test 10/30/19 05:50 White Blood Count 9.2 K/UL (4.8-10.8) Red Blood Count 4.28 M/UL (4.20-5.40) Hemoglobin 11.4 G/DL (12.0-16.0) L Hematocrit 34.9 % (37.0-47.0) L Mean Corpuscular Volume 81 FL (80-99) Mean Corpuscular Hemoglobin 26.6 PG (27.0-31.0) L Mean Corpuscular Hemoglobin Concent 32.6 G/DL (32.0-36.0) Red Cell Distribution Width 13.7 % (11.6-14.8) Platelet Count 221 K/UL (150-450) Mean Platelet Volume 10.1 FL (6.5-10.1) Neutrophils (%) (Auto) 61.0 % (45.0-75.0) Lymphocytes (%) (Auto) 30.9 % (20.0-45.0) Monocytes (%) (Auto) 5.5 % (1.0-10.0) Eosinophils (%) (Auto) 1.8 % (0.0-3.0) Basophils (%) (Auto) 0.9 % (0.0-2.0) Sodium Level 141 MMOL/L (136-145) Potassium Level 4.0 MMOL/L (3.5-5.1) Chloride Level 107 MMOL/L (98-107) Carbon Dioxide Level 25 MMOL/L (21-32) Anion Gap 9 mmol/L (5-15) Blood Urea Nitrogen 10 mg/dL (7-18) Creatinine 0.7 MG/DL (0.55-1.30) Estimat Glomerular Filtration Rate > 60 mL/min (>60) Glucose Level 123 MG/DL (74-106) H Calcium Level 9.1 MG/DL (8.5-10.1) Total Bilirubin 0.2 MG/DL (0.2-1.0) Aspartate Amino Transf (AST/SGOT) 18 U/L (15-37) Alanine Aminotransferase (ALT/SGPT) 13 U/L (12-78) Alkaline Phosphatase 35 U/L (46-116) L Total Protein 7.1 G/DL (6.4-8.2) Albumin 2.8 G/DL (3.4-5.0) L Globulin 4.3 g/dL Albumin/Globulin Ratio 0.7 (1.0-2.7) L Plan Problems: (1) Failure to thrive in adult Assessment & Plan: DAILY ESTIMATED NEEDS: Needs based on FTT/ 65kg 25-30 kcals/kg 9566-6702 total kcals 1-1.2 g protein/kg 65-78 g total protein 25-30 mL/kg 3689-2432 total fluid mLs NUTRITION DIAGNOSIS: Inadequate oral intake R/T decreased appetite, psych issues as evidenced by admitted w/ FTT dx, refusing meals and oral meds, AMS, dx of catatonic schizophrenia. CURRENT DIET:Regular PO DIET RECOMMENDATIONS: Liberalized REGULAR/ texture per [employer] or as tolerated ENTERAL NUTRITION RECOMMENDATIONS: Jevity 1.2 @ 60ml/hr x 24 hrs to provide 1440ml, 1728kcal, 79g prot, 1162ml free water * W/ continued refusal of meals and if TF part of POC -> obtain GI access, initiate Jevity 1.2 @ 20ml/hr x 6 hrs -> advance 10ml q 4-6 hrs as tolerated to goal rate -> HOB over 30 degrees -> H20 flush of 120ml q 4 hrs without IVF ADDITIONAL RECOMMENDATIONS: * Psych consult * Monitor PO intake closely: Refusing meals + meds at this time * Ensure Enlive TID w/ meals if pt receptive * TF rec as above if TF part of POC and w/ continued refusing meals * WC eval for wound photos -> MVI x 1 + Rehan 1pkt BID if pt receptive (2) Decubitus skin ulcer Assessment & Plan: Pt presented on admission with DTPI R and L heels. R heel noted to have an area that is maroon fluctuant with surrounding non- blanching erythema.(L)2.4cm x (W)1.6cm. L heel noted to have an area that is purple with red margins ,surrounding non- blanching erythema which is boggy.(L)3.3cm x (W)1.5cm. Skin is dry Sacrum/buttocks without erythema or evidence of skin breakdown noted. No other skin concerns noted . PT identified as high risks for skin breakdown secondary,immobility,rigidity, Incontinence,Dx.of failure to thrive,and presence of pressure injuries. Wound prevention protocols initiated.Moisture Barrier paste applied to Sacrum and covered with Optifoam drsg.Pt positioned on side with pillow.HOB at 30 degrees. Cavilon Skin Barrier applied to both heels and each heel covered with Optifoam drsg. Heels floated off mattress with pillow. Pt placed on an APM/CELIA mattress overlay. Tx.plan: Apply Moisture Barrier Paste to Sacrum.Cover with Optifoam drsg. Change every 3 days and prn. Reposition at least every 2hours or as tolerated. Apply Cavilon Skin Barrier to both heels.Cover each heel with Optifoam drsg. Change every 7 days and prn. Off-load heels with pillow. APM/CELIA Mattress overlay. Rodney Vaca Oct 30, 2019 13:42
[2019-10-30 16:02] VITALS: BP 120/72
--- NOTE | 2019-10-30 19:46 | Hematology/Onc Progress Note ---
Assessment/Plan Assessment/Plan Assessment and Recs: # Pancytopenia -- multiple etiologies could be related to underlying liver disease, medication-induced, infection versus viral syndrome versus underlying bone marrow cause --> peripheral smear has been ordered and does not show significant abnormalities --> Medications have been reviewed --> Continue to monitor for improvement, trend cbc --> Hep panel and HIV BOTH NEG --> US abd r/o cirrhosis and hepatosplenomegaly as per PRN order --> reverse isolation if ANC is <2000 --> Give neupogen if ANC <1000 --> Transfuse if hgb <7, with 1 unit prbc --> ferritin 185 # Failure to thrive in adult --> daily weights, pt as needed --> cont megace --> considering peg # UTI (urinary tract infection) --> s/p abx # 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 Greatly appreciate consultation. Subjective Allergies: Coded Allergies: No Known Allergies (Unverified , 10/22/19) Subjective 10/26: nonverbal, flat affect, labs noted, no bleeding 10/28: no acute events, labs reviewed, afebrile, no sob, dc planning 10/29: no major events, no night sweats, no bleeding 10/30: nonverbal, no overnight events, on room air, off abx Objective Objective Current Medications Medications (Trade) Dose Ordered Sig/Kirby Route PRN Reason Start Time Stop Time Status Last Admin Dose Admin Acetaminophen (Tylenol) 325 mg Q4H PRN ORAL Mild Pain/Temp > 100.5 10/23/19 06:15 11/22/19 06:14 Clozapine (Clozaril) 25 mg QHS ORAL 10/29/19 21:00 11/05/19 20:59 10/29/19 21:43 Dextrose 1,000 ml @ 50 mls/hr Q20H IV 10/23/19 15:30 11/22/19 15:29 10/30/19 05:56 Docusate Sodium (Colace) 100 mg BID ORAL 10/23/19 09:00 11/22/19 08:59 10/30/19 17:15 Fluconazole (Diflucan) 100 mg DAILY ORAL 10/23/19 09:00 11/05/19 08:59 10/30/19 08:00 Heparin Sodium (Porcine) (Heparin 5000 units/ml) 5,000 units EVERY 12 HOURS SUBQ 10/23/19 09:00 11/22/19 08:59 10/30/19 08:01 Lansoprazole (Prevacid) 30 mg Q12HR GT 10/28/19 21:45 11/27/19 21:44 10/30/19 08:00 Megestrol Acetate (Megace) 400 mg BID ORAL 10/26/19 18:00 10/31/19 17:59 10/30/19 17:15 Last 24 Hour Vital Signs Date Time Temp Pulse Resp B/P (MAP) Pulse Ox O2 Delivery O2 Flow Rate FiO2 10/30/19 16:02 98.6 98 18 120/72 (88) 98 10/30/19 12:18 98.6 90 19 138/76 (96) 98 10/30/19 08:45 Room Air 10/30/19 08:11 98.8 99 17 123/79 (94) 98 10/30/19 04:00 98.9 100 16 127/86 (100) 98 10/30/19 00:00 97.8 103 16 112/77 (89) 98 10/29/19 21:00 Room Air 10/29/19 20:00 98.1 93 12 113/76 (88) 98 10/29/19 16:00 97.5 69 18 111/79 (90) 97 10/29/19 12:08 97.0 97 18 112/75 (87) 98 10/29/19 09:00 Room Air 10/29/19 08:00 97.8 106 19 116/75 (89) 98 10/29/19 04:00 98.6 83 19 108/71 (83) 95 10/29/19 00:00 97.2 68 19 135/72 (93) 96 10/28/19 21:00 Room Air 10/28/19 20:00 99.0 98 20 113/78 (90) 94 Intake and Output 10/29/19 10/30/19 19:00 07:00 Intake Total 1520 ml 1470 ml Balance 1520 ml 1470 ml Intake Free Water 300 ml 200 ml IV Total 500 ml 550 ml Tube Feeding 720 ml 720 ml Labs Test 10/28/19 07:00 10/29/19 06:25 10/30/19 05:50 White Blood Count 10.8 K/UL (4.8-10.8) 10.1 K/UL (4.8-10.8) 9.2 K/UL (4.8-10.8) Red Blood Count 4.34 M/UL (4.20-5.40) 4.19 M/UL (4.20-5.40) 4.28 M/UL (4.20-5.40) Hemoglobin 11.6 G/DL (12.0-16.0) 11.4 G/DL (12.0-16.0) 11.4 G/DL (12.0-16.0) Hematocrit 35.2 % (37.0-47.0) 33.9 % (37.0-47.0) 34.9 % (37.0-47.0) Mean Corpuscular Volume 81 FL (80-99) 81 FL (80-99) 81 FL (80-99) Mean Corpuscular Hemoglobin 26.6 PG (27.0-31.0) 27.1 PG (27.0-31.0) 26.6 PG (27.0-31.0) Mean Corpuscular Hemoglobin Concent 32.8 G/DL (32.0-36.0) 33.5 G/DL (32.0-36.0) 32.6 G/DL (32.0-36.0) Red Cell Distribution Width 13.7 % (11.6-14.8) 13.4 % (11.6-14.8) 13.7 % (11.6-14.8) Platelet Count 189 K/UL (150-450) 202 K/UL (150-450) 221 K/UL (150-450) Mean Platelet Volume 10.0 FL (6.5-10.1) 10.3 FL (6.5-10.1) 10.1 FL (6.5-10.1) Neutrophils (%) (Auto) 68.4 % (45.0-75.0) 67.6 % (45.0-75.0) 61.0 % (45.0-75.0) Lymphocytes (%) (Auto) 24.5 % (20.0-45.0) 25.3 % (20.0-45.0) 30.9 % (20.0-45.0) Monocytes (%) (Auto) 5.7 % (1.0-10.0) 4.9 % (1.0-10.0) 5.5 % (1.0-10.0) Eosinophils (%) (Auto) 0.6 % (0.0-3.0) 1.3 % (0.0-3.0) 1.8 % (0.0-3.0) Basophils (%) (Auto) 0.7 % (0.0-2.0) 0.9 % (0.0-2.0) 0.9 % (0.0-2.0) Sodium Level 140 MMOL/L (136-145) 141 MMOL/L (136-145) 141 MMOL/L (136-145) Potassium Level 3.6 MMOL/L (3.5-5.1) 3.4 MMOL/L (3.5-5.1) 4.0 MMOL/L (3.5-5.1) Chloride Level 105 MMOL/L (98-107) 107 MMOL/L (98-107) 107 MMOL/L (98-107) Carbon Dioxide Level 25 MMOL/L (21-32) 26 MMOL/L (21-32) 25 MMOL/L (21-32) Anion Gap 10 mmol/L (5-15) 9 mmol/L (5-15) 9 mmol/L (5-15) Blood Urea Nitrogen 7 mg/dL (7-18) 9 mg/dL (7-18) 10 mg/dL (7-18) Creatinine 0.7 MG/DL (0.55-1.30) 0.7 MG/DL (0.55-1.30) 0.7 MG/DL (0.55-1.30) Estimat Glomerular Filtration Rate > 60 mL/min (>60) > 60 mL/min (>60) > 60 mL/min (>60) Glucose Level 119 MG/DL (74-106) 128 MG/DL (74-106) 123 MG/DL (74-106) Calcium Level 9.1 MG/DL (8.5-10.1) 9.0 MG/DL (8.5-10.1) 9.1 MG/DL (8.5-10.1) Total Bilirubin 0.2 MG/DL (0.2-1.0) 0.2 MG/DL (0.2-1.0) Aspartate Amino Transf (AST/SGOT) 23 U/L (15-37) 18 U/L (15-37) Alanine Aminotransferase (ALT/SGPT) 16 U/L (12-78) 13 U/L (12-78) Alkaline Phosphatase 37 U/L (46-116) 35 U/L (46-116) Total Protein 6.9 G/DL (6.4-8.2) 7.1 G/DL (6.4-8.2) Albumin 2.8 G/DL (3.4-5.0) 2.8 G/DL (3.4-5.0) Globulin 4.1 g/dL 4.3 g/dL Albumin/Globulin Ratio 0.7 (1.0-2.7) 0.7 (1.0-2.7) Height (Feet): 5 Height (Inches): 9.00 Weight (Pounds): 151 Objective Physical Exam: Vitals: reviewed General Appearance: NAD HEENT: normocephalic, atraumatic Neck: non-tender, normal alignment Respiratory/Chest: normal breath sounds bilaterally Cardiovascular/Chest: normal peripheral pulses, normal rate Abdomen: normal bowel sounds, soft, nontender ++ gtube Extremities: normal range of motion, starks++ Neuro: not moving much ++ catatonia Chris Gates MD Oct 30, 2019 19:46
[2019-10-30 20:00] VITALS: BP 113/74
[2019-10-31] VITALS: BP 114/67
[2019-10-31 04:00] VITALS: BP 112/78
[2019-10-31 08:00] VITALS: BP 113/76
[2019-10-31] MEDS: Megace 400mg/10ml Susp ORAL SCH (08:14)
[2019-10-31] MEDS: Docusate 100mg cap ORAL SCH (08:14)
[2019-10-31] MEDS: Fluconazole 100mg tab ORAL SCH (08:14)
[2019-10-31] MEDS: Heparin 5000 units/ml inj SUBQ SCH (08:15)
--- NOTE | 2019-10-31 09:32 | General Progress Note ---
Assessment/Plan Problem List: (1) Dehydration ICD Codes: E86.0 - Dehydration SNOMED: 99929912 (2) Failure to thrive in adult ICD Codes: R62.7 - Adult failure to thrive SNOMED: 421053396 (3) Decubitus skin ulcer ICD Codes: L89.90 - Pressure ulcer of unspecified site, unspecified stage SNOMED: 434613532 (4) UTI (urinary tract infection) ICD Codes: N39.0 - Urinary tract infection, site not specified SNOMED: 40011722 Qualifiers: Qualified Codes: N30.00 - Acute cystitis without hematuria (5) Schizophrenic catatonia ICD Codes: F20.2 - Catatonic schizophrenia SNOMED: 176189539 Status: unchanged Assessment/Plan: pt diet abx wound care psyc f/u cbc bmp am dc if clear Subjective Constitutional: Reports: weakness Allergies: Coded Allergies: No Known Allergies (Unverified , 10/22/19) All Systems: reviewed and negative except above Subjective sleepy calm in bed Objective Last 24 Hour Vital Signs Date Time Temp Pulse Resp B/P (MAP) Pulse Ox O2 Delivery O2 Flow Rate FiO2 10/31/19 09:02 Room Air 10/31/19 08:00 98.4 102 16 113/76 (88) 95 10/31/19 04:00 98.0 62 16 112/78 (89) 97 10/31/19 00:00 98.0 79 16 114/67 (83) 94 10/30/19 21:00 Room Air 10/30/19 20:00 98.8 86 16 113/74 (87) 94 10/30/19 16:02 98.6 98 18 120/72 (88) 98 10/30/19 12:18 98.6 90 19 138/76 (96) 98 Intake and Output 10/30/19 10/31/19 19:00 07:00 Intake Total 1620 ml 1420 ml Output Total 1200 ml Balance 420 ml 1420 ml Intake Free Water 300 ml 200 ml IV Total 600 ml 500 ml Tube Feeding 720 ml 720 ml Output Urine Total 1200 ml Height (Feet): 5 Height (Inches): 9.00 Weight (Pounds): 157 General Appearance: lethargic EENT: normal ENT inspection Neck: normal alignment Cardiovascular: normal peripheral pulses, normal rate, regular rhythm Respiratory/Chest: chest wall non-tender, lungs clear, normal breath sounds Abdomen: normal bowel sounds, non tender, soft Extremities: normal inspection Edema: no edema noted Arm (L), no edema noted Arm (R), no edema noted Leg (L), no edema noted Leg (R), no edema noted Pedal (L), no edema noted Pedal (R), no edema noted Generalized Neurologic: motor weakness Skin: normal pigmentation, warm/dry Carl Kendall Oct 31, 2019 09:32
--- NOTE | 2019-10-31 09:55 | General Progress Note ---
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 SNOMED: 570943610 (2) UTI (urinary tract infection) ICD Codes: N39.0 - Urinary tract infection, site not specified SNOMED: 45286564 Qualifiers: Qualified Codes: N30.00 - Acute cystitis without hematuria (3) Decubitus skin ulcer ICD Codes: L89.90 - Pressure ulcer of unspecified site, unspecified stage SNOMED: 482853849 (4) Failure to thrive in adult ICD Codes: R62.7 - Adult failure to thrive SNOMED: 022609528 (5) Dehydration ICD Codes: E86.0 - Dehydration SNOMED: 70673344 Status: unchanged Assessment/Plan: s/p GT placement GTF GT care dc planning per primary team Subjective ROS Limited/Unobtainable: No Allergies: Coded Allergies: No Known Allergies (Unverified , 10/22/19) Objective Last 24 Hour Vital Signs Date Time Temp Pulse Resp B/P (MAP) Pulse Ox O2 Delivery O2 Flow Rate FiO2 10/31/19 09:02 Room Air 10/31/19 08:00 98.4 102 16 113/76 (88) 95 10/31/19 04:00 98.0 62 16 112/78 (89) 97 10/31/19 00:00 98.0 79 16 114/67 (83) 94 10/30/19 21:00 Room Air 10/30/19 20:00 98.8 86 16 113/74 (87) 94 10/30/19 16:02 98.6 98 18 120/72 (88) 98 10/30/19 12:18 98.6 90 19 138/76 (96) 98 Intake and Output 10/30/19 10/31/19 19:00 07:00 Intake Total 1620 ml 1420 ml Output Total 1200 ml Balance 420 ml 1420 ml Intake Free Water 300 ml 200 ml IV Total 600 ml 500 ml Tube Feeding 720 ml 720 ml Output Urine Total 1200 ml Height (Feet): 5 Height (Inches): 9.00 Weight (Pounds): 157 General Appearance: no apparent distress EENT: normal ENT inspection Neck: supple Cardiovascular: normal rate Respiratory/Chest: decreased breath sounds Abdomen: normal bowel sounds Joey Vang MD Oct 31, 2019 09:55
--- NOTE | 2019-10-31 11:31 | Progress Note ---
DATE: 10/30/2019 NOTE: POOR AUDIO SUBJECTIVE: This is a patient who came in with failure to thrive and catatonia. The patient continues to have altered mental status, confusion, and . She has auditory hallucinations, paranoid delusions, and confusion, but she has never been cognition is significantly declined below baseline. So, the attending has requested daily psychiatric consultation. She has a history of failure to thrive. She was previously treated in this facility. She has dehydration and . She is lethargic, confused, disorganized on interview. Cognition has declined below baseline. MENTAL STATUS EXAMINATION: This is a 48-year-old female. Her appearance is disheveled. Her attitude is irritable and agitated. Affect, guarded and restricted. Intellect poor. Mood, depressed and anxious. Motor activity, psychomotor agitation. Insight and judgment poor. DIAGNOSIS: Paranoid schizophrenia with acute exacerbation. PLAN: The patient was treated with Clozaril 25 mg q.h.s.. Twenty minutes of insight-oriented psychotherapy to help the patient identify with automatic negative thoughts and to help her convert her negative thoughts to more positive thoughts to reduce depression, anxiety, mood lability impulse control. Twenty minutes of insight-oriented psychotherapy provided . Chart was reviewed. Seen and assessed at bedside. Natalie Martin M.D. DR: Joann JOB#: [id number] CC:
[2019-10-31 12:00] VITALS: BP 115/79
--- NOTE | 2019-10-31 13:00 | Infectious Diseases Prog Note ---
Assessment/Plan Assessment/Plan Assessment: FTT Dehydration catatonic schizophrenia Afebrile Mild leukocytosis,SP Pyuria -u/a wbc 30-40, nit neg, leuk +2, sq cell mod; ucx Neg -repaet u/a wbc 2-4, nit neg, leuk +1, sq cell occasional NH resident HIV sc neg RPR neg Plan: - On Fluconazole since admission Home med -Continue to monitor off abx -10/25 SP Ceftriaxone #3 -f/u cx -Monitor CBC/CMP, temperatures -Pscyh f/u Thank you for this consultation. Will continue to follow along with you. Discussed with RN Subjective Allergies: Coded Allergies: No Known Allergies (Unverified , 10/22/19) Subjective afebrile no leukocytosis off abx Objective Vital Signs Last 24 Hour Vital Signs Date Time Temp Pulse Resp B/P (MAP) Pulse Ox O2 Delivery O2 Flow Rate FiO2 10/31/19 12:00 98.6 99 17 115/79 (91) 97 10/31/19 09:02 Room Air 10/31/19 08:00 98.4 102 16 113/76 (88) 95 10/31/19 04:00 98.0 62 16 112/78 (89) 97 10/31/19 00:00 98.0 79 16 114/67 (83) 94 10/30/19 21:00 Room Air 10/30/19 20:00 98.8 86 16 113/74 (87) 94 10/30/19 16:02 98.6 98 18 120/72 (88) 98 Height (Feet): 5 Height (Inches): 9.00 Weight (Pounds): 157 Objective General Appearance: no apparent distress, alert, cachetic, thin Head: normocephalic, atraumatic Eyes: bilateral eye PERRL, bilateral eye EOMI ENT: hearing grossly normal, normal pharynx Neck: full range of motion, supple, no meningismus Respiratory: chest non-tender, lungs clear, normal breath sounds Cardiovascular #1: regular rate, rhythm, no murmur Gastrointestinal: normal bowel sounds, non tender, no mass, no organomegaly, no bruit, non-distended Musculoskeletal: back normal, normal range of motion, gait/station normal Neurologic: grossly normal Psychiatric: other - Patient is catatonic. Not moving much. Laboratory Tests Test 10/31/19 12:30 Total Creatine Kinase Pending Current Medications Medications (Trade) Dose Ordered Sig/Kirby Route PRN Reason Start Time Stop Time Status Last Admin Dose Admin Acetaminophen (Tylenol) 325 mg Q4H PRN ORAL Mild Pain/Temp > 100.5 10/23/19 06:15 11/22/19 06:14 Clozapine (Clozaril) 25 mg QHS ORAL 10/29/19 21:00 11/05/19 20:59 10/30/19 21:08 Docusate Sodium (Colace) 100 mg BID ORAL 10/23/19 09:00 11/22/19 08:59 10/31/19 08:14 Fluconazole (Diflucan) 100 mg DAILY ORAL 10/23/19 09:00 11/05/19 08:59 10/31/19 08:14 Heparin Sodium (Porcine) (Heparin 5000 units/ml) 5,000 units EVERY 12 HOURS SUBQ 10/23/19 09:00 11/22/19 08:59 10/31/19 08:15 Lansoprazole (Prevacid) 30 mg Q12HR GT 10/28/19 21:45 11/27/19 21:44 10/31/19 08:14 Megestrol Acetate (Megace) 400 mg BID ORAL 10/26/19 18:00 10/31/19 17:59 10/31/19 08:14 Ankita Jama M.D. Oct 31, 2019 13:00
[2019-10-31 13:11] LABS: CREATINE KINASE 339 U/L (26-308)
[2019-10-31] MEDS ORDERED: CLOZAPINE25 MG PO (13:22)
[2019-10-31] MEDS ORDERED: LANSOPRAZOLE30 MG ORAL (13:24)
--- NOTE | 2019-10-31 14:19 | Hematology/Onc Progress Note ---
Assessment/Plan Assessment/Plan Assessment and Recs: # Pancytopenia -- multiple etiologies could be related to underlying liver disease, medication-induced, infection versus viral syndrome versus underlying bone marrow cause --> peripheral smear has been ordered and does not show significant abnormalities --> Medications have been reviewed --> Continue to monitor for improvement, trend cbc --> Hep panel and HIV BOTH NEG --> US abd r/o cirrhosis and hepatosplenomegaly as per PRN order --> reverse isolation if ANC is <2000 --> Give neupogen if ANC <1000 --> Transfuse if hgb <7, with 1 unit prbc --> ferritin 185 # Failure to thrive in adult --> daily weights, pt as needed --> cont megace --> considering peg # UTI (urinary tract infection) --> s/p abx # 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 Greatly appreciate consultation. Subjective Allergies: Coded Allergies: No Known Allergies (Unverified , 10/22/19) Subjective 10/26: nonverbal, flat affect, labs noted, no bleeding 10/28: no acute events, labs reviewed, afebrile, no sob, dc planning 10/29: no major events, no night sweats, no bleeding 10/30: nonverbal, no overnight events, on room air, off abx 10/31: in bed, no acute events, no sob, dc pending Objective Objective Current Medications Medications (Trade) Dose Ordered Sig/Kirby Route PRN Reason Start Time Stop Time Status Last Admin Dose Admin Acetaminophen (Tylenol) 325 mg Q4H PRN ORAL Mild Pain/Temp > 100.5 10/23/19 06:15 11/22/19 06:14 Clozapine (Clozaril) 25 mg QHS ORAL 10/29/19 21:00 11/05/19 20:59 10/30/19 21:08 Docusate Sodium (Colace) 100 mg BID ORAL 10/23/19 09:00 11/22/19 08:59 10/31/19 08:14 Fluconazole (Diflucan) 100 mg DAILY ORAL 10/23/19 09:00 11/05/19 08:59 10/31/19 08:14 Heparin Sodium (Porcine) (Heparin 5000 units/ml) 5,000 units EVERY 12 HOURS SUBQ 10/23/19 09:00 11/22/19 08:59 10/31/19 08:15 Lansoprazole (Prevacid) 30 mg Q12HR GT 10/28/19 21:45 11/27/19 21:44 10/31/19 08:14 Megestrol Acetate (Megace) 400 mg BID ORAL 10/26/19 18:00 10/31/19 17:59 10/31/19 08:14 Last 24 Hour Vital Signs Date Time Temp Pulse Resp B/P (MAP) Pulse Ox O2 Delivery O2 Flow Rate FiO2 10/31/19 12:00 98.6 99 17 115/79 (91) 97 10/31/19 09:02 Room Air 10/31/19 08:00 98.4 102 16 113/76 (88) 95 10/31/19 04:00 98.0 62 16 112/78 (89) 97 10/31/19 00:00 98.0 79 16 114/67 (83) 94 10/30/19 21:00 Room Air 10/30/19 20:00 98.8 86 16 113/74 (87) 94 10/30/19 16:02 98.6 98 18 120/72 (88) 98 10/30/19 12:18 98.6 90 19 138/76 (96) 98 10/30/19 08:45 Room Air 10/30/19 08:11 98.8 99 17 123/79 (94) 98 10/30/19 04:00 98.9 100 16 127/86 (100) 98 10/30/19 00:00 97.8 103 16 112/77 (89) 98 10/29/19 21:00 Room Air 10/29/19 20:00 98.1 93 12 113/76 (88) 98 10/29/19 16:00 97.5 69 18 111/79 (90) 97 Intake and Output 10/30/19 10/31/19 19:00 07:00 Intake Total 1620 ml 1420 ml Output Total 1200 ml Balance 420 ml 1420 ml Intake Free Water 300 ml 200 ml IV Total 600 ml 500 ml Tube Feeding 720 ml 720 ml Output Urine Total 1200 ml Labs Test 10/29/19 06:25 10/30/19 05:50 10/31/19 12:30 White Blood Count 10.1 K/UL (4.8-10.8) 9.2 K/UL (4.8-10.8) Red Blood Count 4.19 M/UL (4.20-5.40) 4.28 M/UL (4.20-5.40) Hemoglobin 11.4 G/DL (12.0-16.0) 11.4 G/DL (12.0-16.0) Hematocrit 33.9 % (37.0-47.0) 34.9 % (37.0-47.0) Mean Corpuscular Volume 81 FL (80-99) 81 FL (80-99) Mean Corpuscular Hemoglobin 27.1 PG (27.0-31.0) 26.6 PG (27.0-31.0) Mean Corpuscular Hemoglobin Concent 33.5 G/DL (32.0-36.0) 32.6 G/DL (32.0-36.0) Red Cell Distribution Width 13.4 % (11.6-14.8) 13.7 % (11.6-14.8) Platelet Count 202 K/UL (150-450) 221 K/UL (150-450) Mean Platelet Volume 10.3 FL (6.5-10.1) 10.1 FL (6.5-10.1) Neutrophils (%) (Auto) 67.6 % (45.0-75.0) 61.0 % (45.0-75.0) Lymphocytes (%) (Auto) 25.3 % (20.0-45.0) 30.9 % (20.0-45.0) Monocytes (%) (Auto) 4.9 % (1.0-10.0) 5.5 % (1.0-10.0) Eosinophils (%) (Auto) 1.3 % (0.0-3.0) 1.8 % (0.0-3.0) Basophils (%) (Auto) 0.9 % (0.0-2.0) 0.9 % (0.0-2.0) Sodium Level 141 MMOL/L (136-145) 141 MMOL/L (136-145) Potassium Level 3.4 MMOL/L (3.5-5.1) 4.0 MMOL/L (3.5-5.1) Chloride Level 107 MMOL/L (98-107) 107 MMOL/L (98-107) Carbon Dioxide Level 26 MMOL/L (21-32) 25 MMOL/L (21-32) Anion Gap 9 mmol/L (5-15) 9 mmol/L (5-15) Blood Urea Nitrogen 9 mg/dL (7-18) 10 mg/dL (7-18) Creatinine 0.7 MG/DL (0.55-1.30) 0.7 MG/DL (0.55-1.30) Estimat Glomerular Filtration Rate > 60 mL/min (>60) > 60 mL/min (>60) Glucose Level 128 MG/DL (74-106) 123 MG/DL (74-106) Calcium Level 9.0 MG/DL (8.5-10.1) 9.1 MG/DL (8.5-10.1) Total Bilirubin 0.2 MG/DL (0.2-1.0) 0.2 MG/DL (0.2-1.0) Aspartate Amino Transf (AST/SGOT) 23 U/L (15-37) 18 U/L (15-37) Alanine Aminotransferase (ALT/SGPT) 16 U/L (12-78) 13 U/L (12-78) Alkaline Phosphatase 37 U/L (46-116) 35 U/L (46-116) Total Protein 6.9 G/DL (6.4-8.2) 7.1 G/DL (6.4-8.2) Albumin 2.8 G/DL (3.4-5.0) 2.8 G/DL (3.4-5.0) Globulin 4.1 g/dL 4.3 g/dL Albumin/Globulin Ratio 0.7 (1.0-2.7) 0.7 (1.0-2.7) Total Creatine Kinase 339 U/L (26-308) Height (Feet): 5 Height (Inches): 9.00 Weight (Pounds): 157 Objective Physical Exam: Vitals: reviewed General Appearance: NAD HEENT: normocephalic, atraumatic Neck: non-tender, normal alignment Respiratory/Chest: normal breath sounds bilaterally Cardiovascular/Chest: normal peripheral pulses, normal rate Abdomen: normal bowel sounds, soft, nontender ++ gtube Extremities: normal range of motion, starks++ Neuro: not moving much ++ catatonia Chris Gates MD Oct 31, 2019 14:19
--- NOTE | 2019-10-31 14:59 | Surgery Progress Note ---
Surgery Progress Note Subjective Additional Comments no acute events exam unchanged Objective Last 24 Hour Vital Signs Date Time Temp Pulse Resp B/P (MAP) Pulse Ox O2 Delivery O2 Flow Rate FiO2 10/31/19 12:00 98.6 99 17 115/79 (91) 97 10/31/19 09:02 Room Air 10/31/19 08:00 98.4 102 16 113/76 (88) 95 10/31/19 04:00 98.0 62 16 112/78 (89) 97 10/31/19 00:00 98.0 79 16 114/67 (83) 94 10/30/19 21:00 Room Air 10/30/19 20:00 98.8 86 16 113/74 (87) 94 10/30/19 16:02 98.6 98 18 120/72 (88) 98 I&O Intake and Output 10/30/19 10/31/19 19:00 07:00 Intake Total 1620 ml 1420 ml Output Total 1200 ml Balance 420 ml 1420 ml Intake Free Water 300 ml 200 ml IV Total 600 ml 500 ml Tube Feeding 720 ml 720 ml Output Urine Total 1200 ml Dressing: other Wound: other Drains: other Cardiovascular: RSR Respiratory: clear Abdomen: soft, non-tender, present bowel sounds, non-distended Extremities: no edema, no tenderness, no cyanosis Laboratory Tests Test 10/31/19 12:30 Total Creatine Kinase 339 U/L (26-308) H Plan Problems: (1) Failure to thrive in adult Assessment & Plan: DAILY ESTIMATED NEEDS: Needs based on FTT/ 65kg 25-30 kcals/kg 3180-1540 total kcals 1-1.2 g protein/kg 65-78 g total protein 25-30 mL/kg 2223-7495 total fluid mLs NUTRITION DIAGNOSIS: Inadequate oral intake R/T decreased appetite, psych issues as evidenced by admitted w/ FTT dx, refusing meals and oral meds, AMS, dx of catatonic schizophrenia. CURRENT DIET:Regular PO DIET RECOMMENDATIONS: Liberalized REGULAR/ texture per PLUMBING DRAFTER or as tolerated ENTERAL NUTRITION RECOMMENDATIONS: Jevity 1.2 @ 60ml/hr x 24 hrs to provide 1440ml, 1728kcal, 79g prot, 1162ml free water * W/ continued refusal of meals and if TF part of POC -> obtain GI access, initiate Jevity 1.2 @ 20ml/hr x 6 hrs -> advance 10ml q 4-6 hrs as tolerated to goal rate -> HOB over 30 degrees -> H20 flush of 120ml q 4 hrs without IVF ADDITIONAL RECOMMENDATIONS: * Psych consult * Monitor PO intake closely: Refusing meals + meds at this time * Ensure Enlive TID w/ meals if pt receptive * TF rec as above if TF part of POC and w/ continued refusing meals * WC eval for wound photos -> MVI x 1 + Rehan 1pkt BID if pt receptive (2) Decubitus skin ulcer Assessment & Plan: Pt presented on admission with DTPI R and L heels. R heel noted to have an area that is maroon fluctuant with surrounding non- blanching erythema.(L)2.4cm x (W)1.6cm. L heel noted to have an area that is purple with red margins ,surrounding non- blanching erythema which is boggy.(L)3.3cm x (W)1.5cm. Skin is dry Sacrum/buttocks without erythema or evidence of skin breakdown noted. No other skin concerns noted . PT identified as high risks for skin breakdown secondary,immobility,rigidity, Incontinence,Dx.of failure to thrive,and presence of pressure injuries. Wound prevention protocols initiated.Moisture Barrier paste applied to Sacrum and covered with Optifoam drsg.Pt positioned on side with pillow.HOB at 30 degrees. Cavilon Skin Barrier applied to both heels and each heel covered with Optifoam drsg. Heels floated off mattress with pillow. Pt placed on an APM/CELIA mattress overlay. Tx.plan: Apply Moisture Barrier Paste to Sacrum.Cover with Optifoam drsg. Change every 3 days and prn. Reposition at least every 2hours or as tolerated. Apply Cavilon Skin Barrier to both heels.Cover each heel with Optifoam drsg. Change every 7 days and prn. Off-load heels with pillow. APM/CELIA Mattress overlay. Rodney Vaca Oct 31, 2019 14:59
--- NOTE | 2019-10-31 20:45 | Progress Note ---
DATE: 10/31/2019 SUBJECTIVE: This is a 48-year-old female patient with failure to thrive. The patient has history of altered mental status, confusion, some disorganized thought process. She has type behavior. On interview, very confused, disorganized. Very poor historian. Significant decline in cognition below baseline. MENTAL STATUS EXAMINATION: This is a 48-year-old female. Appearance is disheveled. Attitude, irritable and agitated. Affect, guarded and restricted. Intellect poor. Mood, depressed and anxious. Motor activity, psychomotor agitation. Attention span is poor. Orientation x2. Speech is low volume and slurred. Thought process, disorganized and illogical. Insight and judgment is poor. DIAGNOSIS: The patient has paranoid schizophrenia with acute exacerbation. PLAN: Treat her with Clozaril 25 mg at bedtime. 20 minutes of cognitive behavioral therapy to help her identify automatic negative thoughts help convert her negative thoughts to more positive thoughts to reduce depression, anxiety, mood lability. Chart reviewed. Discussed with staff. Seen and assessed at bedside. Natalie Martin M.D. DR: ERIN JOB#: [id number] CC:
--- NOTE | 2019-11-01 08:30 | Consultation ---
DATE OF CONSULTATION: 10/31/2019 NOTE: POOR AUDIO CONSULTING PHYSICIAN: Shola Hall M.D. CHIEF COMPLAINT: This is a 48-year-old woman with schizophrenia, admitted for the first time at [facility] on 10/23/2019. The patient was admitted with weakness, catatonia, urinary tract infection, and heel ulcer. The patient was practically nonverbal her temperatures were basically normal throughout her hospital course. Otherwise, there is no fever. She was anemic on admission with an elevated white count on admission of 12,800 and a low platelet count. The patient was seen by psychologist and probably seen by a psychiatrist. She is on Clozaril. I was asked to see the patient because of discharge. The patient's pro time and PTT were normal. Chemistries were normal except for slightly low potassium, slightly low liver function tests, occasionally elevated glucose to as high as 123. Calcium was within normal. No CPK was ordered. Initially, urine revealed high white blood cell count with an elevated leukocyte esterase, +1 protein, blood, and moderate bacteria. No imaging studies were done. The patient did have a PEG placed on 10/26/2019 with an abdominal binder. There is no family history available or medical history available. PAST MEDICAL HISTORY/PAST MEDICAL ILLNESSES: 1. Schizophrenia. 2. Thrombocytopenia. 3. Urinary tract infections. ALLERGIES: No known allergies. SOCIAL HISTORY: Unavailable. FAMILY HISTORY: Unavailable. REVIEW OF SYSTEMS: Essentially unavailable. She has "failure to thrive." PHYSICAL EXAMINATION: GENERAL: She is a well developed, well nourished woman, lying in bed. VITAL SIGNS: The blood pressure is 113/76, pulse rate 102, temperature 98.6 degrees, and respiratory rate is 16. HEENT: Mouth appeared to be normal. NECK: The neck is rigid in all 4 directions. Carotids could not be felt. There are no bruits. LUNGS: Could not be tested. HEART: no murmurs or rubs. ABDOMEN: has abdominal binder on it. There is no obvious tenderness . NEUROLOGIC EXAMINATION: MENTAL STATUS: The patient appeared to be awake. She is mute. CRANIAL NERVE EXAMINATION: CRANIAL NERVE II: Visual cardoza appear to be grossly intact to confrontation. CRANIAL NERVES III, IV, AND : Difficult to visualize. CRANIAL NERVE V: Corneal sensation appeared to be intact bilaterally. CRANIAL NERVE VII: Facial muscles appear to be symmetrical bilaterally. CRANIAL NERVE VIII THROUGH XII: Could not be tested. MUSCLE EXAMINATION: Muscle bulk is noted to be decreased. Tone, there is lead pipe rigidity in all 4 extremities. . REFLEXES: 0 at the ankles, probably 0 at the knees. Toes were downgoing when testing for Babinski response. SENSORY EXAMINATION: There is no reaction to deep pain. 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 this is frequently associated with schizophrenia with new stress or withdrawal of antipsychotics. she will need to go to a facility that can treat it. PLAN: 1. CPK level. 2. Routine discharge. Shola Hall MD DR: STANLEY JOB#: [id number] CC: ANGEL
--- NOTE | 2019-11-03 18:09 | Discharge Summary ---
Discharge Summary Discharge Summary _ DATE OF ADMISSION: 10/23/2019 DATE OF DISCHARGE: 10/31/2019 DISCHARGED BY: Dr. Kendall REASON FOR ADMISSION: 48 years old female with past medical history of schizophrenia, resident of correction facility, was sent for evaluation due to altered mental status. For the last few days patient did not take her medications. She was not eating or drinking and was very catatonic per paramedics. Patient was not able to verbalize her complaints. At baseline per nursing staff she is conversive. Upon evaluation patient was tachycardic ; blood pressure was slightly elevated 154/86 , pulse oximetry was stable on room air , and patient was afebrile. EKG revealed sinus rhythm , no acute ischemic changes. Laboratory work-up was significant for leukocytosis, stable hemoglobin and hematocrit. Urinalysis revealed evidence of urinary tract infection. Patient subsequently started on the IV fluids, received empiric antibiotic and admitted for further management CONSULTANTS: neurologist Dr. Hall GI specialist Dr. Vang ID specialist Dr. Jama foreign policy officer/oncologist Dr. Gates surgery Dr. Vaca psychiatrist Dr. Martin HOSPITAL COURSE: Patient admitted and continued with IV fluids . Per neurologist patient appeared to have retarded catatonia , which should be treated with lorazepam as needed and / or electric shock therapy. This condition was frequently associated with schizophrenia with stress or withdrawal of antipsychotic. CK was minimally elevated at 339. Urine culture was negative. Mild leukocytosis resolved. Patient had pyuria, but no evidence of urinary tract infection with culture. Patient received 3 days of ceftriaxone. ID specialist recommended to monitor patient off antibiotic. HIV test and RPR were non-reactive. Hepatitis panel was negative. Oral hydration was encouraged . Calorie count implemented. Swallow evaluation revealed high risk for malnutrition due to poor oral intake and questionable risk for oropharyngeal dysphagia. Patient subsequently undergone upper endoscopy with PEG placement . Patient tolerated procedure well. Head of bed was elevated at all times. G-tube site care provided. Patient started on tube feeding with tube formula and goal rate as recommended by registered radiographer. Patient was able to tolerate tube feeding. Protein supplements implemented in plan of care as per registered radiographer recommendations. Renal parameters and electrolytes were closely monitored, electrolytes corrected as needed. Prior to discharge electrolyte stable. Noted mild anemia . Anemia work-up was consistent with anemia of chronic disease. Hemoglobin and hematocrit were closely monitored with goal to keep hemoglobin above 7. Prior to discharge hemoglobin 10.7 , hematocrit 24.8. Patient presented with deep tissue pressure injuries on the right and left heels. Wound care provided per surgeon recommendations. Continue wound care at the facility. Psychiatrist optimized psychiatric medication regimen. Reality orientation and supportive therapy provided. Mental status improved . Patient clinically stabilized and was ready for transfer back to correction facility for continuation of care . FINAL DIAGNOSES: Catatonic schizophrenia Paranoid schizophrenia with acute exacerbation Dehydration Pyuria , possible UTI Failure to thrive in adult Dysphagia Status post upper endoscopy with PEG placement Deep tissue pressure injury, right and left heels ,present on admission DISCHARGE MEDICATIONS: See Medication Reconciliation list. DISCHARGE INSTRUCTIONS: Patient was discharged to the correction facility. Follow up with medical doctor at the facility. I have been assigned to dictate discharge summary for this account. I was not involved in the patient's management. Shannan Eden NP Nov 03, 2019 18:09
== END 2019-10-31 15:08 | DRG 690 ==
LOC: EDBD 23:19 → EMR 23:55 → 4E 10-23 01:46 → EDBEDREQ 10-23 02:05 → 4E 10-24 10:34
PROC: 0DH63UZ Insertion of Feeding Device into Stomach, Percutaneous Approach (ICD-10-PCS; principal; 2019-10-26 10:36)
DX: N39.0 Urinary tract infection, site not specified (principal); F20.2 Catatonic schizophrenia; D61.818 Other pancytopenia; F20.0 Paranoid schizophrenia; R62.7 Adult failure to thrive; E86.0 Dehydration; R13.10 Dysphagia, unspecified; L89.626 Pressure-induced deep tissue damage of left heel; L89.616 Pressure-induced deep tissue damage of right heel
CPT/HCPCS: 36415; 80048; 80053; 81001; 81003; 82550; 82607; 82728; 82746; 82977; 83036; 83540; 83550; 83735; 83880; 84100; 84439; 84443; 84550; 85025; 85044; 85610; 85730; 86140; 86592; 86703; 86705; 86709; 86803; 87081; 87086; 87340; 94003; 94150; 96361; 96365; 96372; 99285; J7030

== ENCOUNTER 2020-01-09 07:57 | Emergency (ER) | payer MEDICAID, MEDICARE ==
[~2020-01-09] VITALS: Ht 167.6 cm; Wt 63.5 kg
[2020-01-09 07:57] VITALS: BP 114/82
[~2020-01-09 07:57] MED LIST: ACETAMINOPHEN325 M1 ORAL; ACIDOPHILUS1 EAC7 PO; CLOZAPINE25 MG PO; CLOZARIL50 MG PO; COLACE100 MG ORAL; DIFLUCAN100 MG ORAL; ENSURE ACTIVE296 ML PO; IBUPROFEN600 MG ORAL; LANSOPRAZOLE30 MG ORAL; MEGESTROL ACETA40 MG PO
--- NOTE | 2020-01-09 07:57 | NUR ---
ED Nurse Note: patient brought into ED from [facility] due to g-tube removal by patient 1 hour prior to arrival to ED. patient is alert awake, resting in bed. g-tube stoma is covered with dressing. Dr. Wiggins at bedside.
--- NOTE | 2020-01-09 08:09 | Emergency Room Report ---
History of Present Illness General Chief Complaint: Malfunctioning Gastric Tube Source: EMS Present Illness HPI Disclaimer: Please note that this report is being documented using DRAGON technology. This can lead to erroneous entry secondary to incorrect interpretation by the dictating instrument. HPI: 49-year-old female history of schizoaffective disorder, bedbound status, G- tube dependent presents for dislodged G-tube. No reports of fever, cough, or other symptoms at this time. Presents by private ambulance from residential facility. Patient is nonverbal at baseline and unable to provide any history. Allergies: Coded Allergies: No Known Allergies (Unverified , 10/22/19) COVID-19 Screening Contact w/high risk pt: No Recent Travel to affected area: No Experienced COVID-19 symptoms?: No Patient History Reviewed Nursing Documentation: PMH: Agreed; PSxH: Agreed Nursing Documentation-PMH Hx Cardiac Problems: No Hx Hypertension: Yes - Primary Hypertension Hx Cancer: No Hx Gastrointestinal Problems: No Hx Neurological Problems: No Review of Systems All Other Systems: limited Physical Exam Vital Signs Date Time Temp Pulse Resp B/P (MAP) Pulse Ox O2 Delivery O2 Flow Rate FiO2 01/09/20 07:53 97.9 96 20 114/82 (93) 98 Room Air Sp02 EP Interpretation: reviewed, normal General Appearance: no apparent distress, non-toxic Head: normocephalic, atraumatic Eyes: bilateral eye PERRL, bilateral eye EOMI ENT: hearing grossly normal, moist mucus membranes Neck: full range of motion, supple Respiratory: lungs clear, normal breath sounds, no rhonchi, no respiratory distress, no retraction, no wheezing Cardiovascular #1: normal peripheral pulses, regular rate, rhythm, no murmur Gastrointestinal: non tender, soft, non-distended, no guarding, other - Gastrostomy site in mid epigastrium. Neurologic: alert, grossly normal, other - Patient nonverbal at baseline Skin: normal color, warm/dry Procedures Additional Procedure Procedure Narrative Gastrostomy tube insertion Emergent consent implied, site cleaned with gauze, a 18 Serbian gastrostomy tube was inserted in an existing gastrostomy site. Inflated with 20 cc of sterile water. Patient tolerated procedure well without complication. Placement confirmed by x-ray. Medical Decision Making Diagnostic Impression: Primary Impression: Dislodged gastrostomy tube ER Course MDM: 49-year-old female gastrostomy dependent presented for gastrostomy tube dislodgment. differential diagnosis: Gastrostomy tube dislodgment, malfunctioning G-tube, less likely infectious process. Clinical course Patient placed on stretcher. Gastrostomy tube replaced by me. Placement confirmed by x-ray. On reevaluation: Patient in no acute distress Diagnosis gastrostomy tube dislodgment Stable for discharge back to residential facility Other X-Ray Diagnostic Results Other X-Ray Diagnostic Results : X-Ray ordered: KUB # of Views/Limited Vs Complete: 1 View Indication: Other - G-tube insertion EP Interpretation: Yes Interpretation: other - G-tube in appropriate position Impression: Other - G-tube in appropriate position Electronically Signed by: Nnamdi Raymundo MD Last Vital Signs Date Time Temp Pulse Resp B/P (MAP) Pulse Ox O2 Delivery O2 Flow Rate FiO2 01/09/20 07:53 97.9 96 20 114/82 (93) 98 Room Air Status: improved Disposition: SNF Condition: Stable Nnamdi Raymundo M.D. Jan 09, 2020 08:09
--- NOTE | 2020-01-09 08:30 | NUR ---
ED Nurse Note: 30 ml of gastrografin was injected through gtube without complication. right after the xray, 60ml of water was used to flush the gtube without complication.
--- NOTE | 2020-01-09 09:17 | Diagnostic Imaging Report ---
Indication: Status post gastrostomy replacement Technique: Supine view of the abdomen after injection of water-soluble contrast into gastrostomy Comparison: none Findings: Contrast opacifies the stomach. No contrast extravasation is demonstrated. The bowel gas pattern is unremarkable. Impression: Satisfactory position of gastrostomy tube
--- NOTE | 2020-01-09 09:38 | NUR ---
ED Nurse Note: report given to Cezar cary to the nurse that patient is going back to the facility.
--- NOTE | 2020-01-09 10:04 | NUR ---
ER DISCHARGE NOTE: Patient is cleared to be discharged per ERMD DR ONEILL, pt is alert awake, on room air, with stable vital signs. pt was given dc instructions. pt id band removed without complications. patient's gtube without any complication.
[2020-01-09 10:09] VITALS: BP 114/82
== END 2020-01-09 15:14 ==
LOC: EDBD 07:57 → EMR 08:25
DX: K94.23 Gastrostomy malfunction (principal); F25.9 Schizoaffective disorder, unspecified; I10 Essential (primary) hypertension
CPT/HCPCS: 74018; 99284